=== PATIENT | female | born 1945 | race Caucasian/White ===

== ENCOUNTER 2020-02-07 14:12 | Emergency (ER) | payer MEDICARE, SELFPAY ==
--- NOTE | ~2020-02-07 | XR_ITS ---
EXAMINATION: XR chest 2V DATE: 02/07/2020 15:52 INDICATION: Mid chest pain TECHNIQUE: PA and lateral views of the chest are obtained. COMPARISON: 08/16/2011 FINDINGS: The lungs are hyperinflated but free of acute opacities. There is no pleural effusion or pn eumothorax. The cardiomediastinal silhouette is normal. There is mild thoracic spondylosis. IMPRESSION: 1. No acute cardiopulmonary abnormality. Reviewed, dictated and finalized at location A.
--- NOTE | ~2020-02-07 | CT_ITS ---
EXAMINATION: CT abdomen pelvis w con EXAM DATE: 02/07/2020 15:47 INDICATION: Nausea with reflux. Diarrhea. TECHNIQUE: Spiral CT of the abdomen and pelvis was performed following intravenous injection of 100 m L Omnipaque 350. Axial, coronal and sagittal images were reviewed. The dose-length product (DLP) fo r this examination was 335.76 mGy-cm. The exposure was tailored according to patient size (auto mA e xposure control), and iterative reconstruction (ASIR) was used as additional dose reduction technique . Comparison is made to prior examination from 10/14/2016. FINDINGS: There is suspicion of pyloric wall edema, could be peptic ulcer disease. No evidence of per foration. There are 2 small duodenal diverticula. Small gastroesophageal hiatal hernia. There is a hypodensity in the right liver dome measuring 2.7 cm consistent with a cyst. The spleen, pancreas, and adrenal glands are unremarkable. Gallbladder not identified, patient likely has had ch olecystectomy. Portal and splenic veins are patent. Kidneys enhance symmetrically. There is no hyd ronephrosis. The uterus is not identified and has likely been surgically resected. The bladder is unremarkable. There is no retroperitoneal or pelvic lymphadenopathy. There is mild scattered arter iosclerotic disease. The appendix is normal. There is mild scattered colonic diverticulosis. There is no adjacent infla mmatory change to suggest diverticulitis. There is expected amount of colonic stool. No free intrap eritoneal gas. The heart is normal in size. There are no pericardial or pleural effusions. The nurys ng bases are unremarkable. There are no osteoblastic or osteolytic lesions identified. IMPRESSION: 1. Findings suspicious for pyloric peptic ulcer disease. 2. Small duodenal diverticulum. 3. Small hiatal hernia. 4. Mild colonic diverticulosis. Reviewed, dictated and finalized at location B.
[2020-02-07 14:15] VITALS: BP 127/65; PULSE 97; RESP 16; TEMP 36.7; O2SAT 99
[2020-02-07 14:48] LABS: Basophils Absolute Auto 0.1 K/mm3 (0.0-0.1); Basophils Percent Auto 0.7 % (0.2-1.2); Eosinophils Absolute Auto 0.1 K/mm3 (0-0.3); Eosinophils Percent Auto 1.3 % (0-4.4); Hematocrit 43.9 % (37.0-47.0); Hemoglobin 14.5 g/dL (12.0-15.0); Immature Granulocyte Absolute 0.03 K/mm3 (0.00-0.031); Immature Granulocyte Percent A 0.4 % (0-0.5); Lymphocytes Absolute Auto 1.45 K/mm3 (0.9-3.2); Lymphocytes Percent Auto 19.1 % (18.3-44.2); Mean Corpuscular Hemoglobin 30.3 pg (26-34); Mean Corpuscular Volume 91.6 fl (80-100); Monocytes Absolute Auto 0.9 K/mm3 (0.1-0.6); Monocytes Percent Auto 11.8 % (2.6-8.5); Neutrophils Absolute Auto 5.1 K/mm3 (1.3-6.7); Neutrophils Percent Auto 66.7 % (45.5-73.1); Platelet Count Result 367 k/mm3 (150-375); Red Blood Count 4.79 M/mm3 (4.2-5.4); Red Cell Distribution Width 12.3 % (11.5-14.5); White Blood Count 7.6 K/mm3 (4.5-10.0)
[2020-02-07 14:55] LABS: Add Urine Microscopic? YES; Appearance Urine Cloudy (Clear); Bacteria Urine 4+ /hpf; Bilirubin Urine Negative (Negative); Blood Urine 1+ (Negative); Color Urine Yellow (Yellow); Glucose Urine UA Negative (Negative); Ketones Urine Negative (Negative); Leukocyte Esterase Ur 3+ LEU/UL (Negative); Mucus Urine Heavy /lpf; Nitrate Urine Positive (Negative); Protein Urine Negative (Negative); Specific Grav Ur 1.016 (1.001-1.035); Squamous Epithelial Cell Urine Occasional /hpf (Few); Urobilinogen Urine Negative mg/dL (<2.0); WBC Urine >75 /hpf
[2020-02-07 15:01] LABS: Alanine Aminotransferase 48 U/L (4-35); Albumin Level 4.4 g/dL (3.5-5.1); Alkaline Phosphatase 83 U/L (38-126); Aspartate Amino Transferase 64 U/L (14-36); Bilirubin,Total 0.4 mg/dL (0.2-1.3); Blood Urea Nitrogen 8 mg/dL (7-17); Carbon Dioxide 26 mmol/L (22-30); Chloride 104 mmol/L (98-107); Estimated CRCL calculation 42 ml/min; Estimated Glomerular Filt Rate > 60; Glucose 115 mg/dL (65-105); Lipase 132 U/L (23-300); Potassium 3.8 mmol/L (3.4-5.0); Sodium 139 mmol/L (137-145)
--- NOTE | 2020-02-07 15:02 | ED.GENADULT ---
HPI - General Adult General Chief complaint: Nausea/Vomiting/Diarrhea Stated complaint: STOMACH VIRUS X10 DAYS Time Seen by Provider: 02/07/20 15:21 History of Present Illness HPI narrative: 74-year-old female patient presents to the [facility] with complaints of nausea, vomiting, diarrhea and abdominal pain and epigastric pain for the past 10 days. Patient states it started with some acid reflux symptoms, diarrhea and fever. Patient states her fever got as high as 101 and lasted for about 3 days and then has went away since then. Patient states that she was tested for COVID-19 on day 4 and was tested negative. Patient states that she continues to have watery diarrhea, lower abdominal pain, epigastric pain. Denies any shortness of breath. Denies any fevers or chills. Patient states she tried calling her primary doctor today for an appointment and they recommended that she come here for further evaluation. Related Data Allergies Allergy/AdvReac Type Severity Reaction Status Date / Time No Known Allergies Allergy Verified 02/07/20 14:43 Review of Systems Review of Systems: Narrative: CONSTITUTIONAL: Positive fever that has since resolved, chills, or sweats. EYES: Denies visual changes, redness, or discharge. ENT: Denies rhinorrhea, congestion, sore throat, or otalgia. CARDIOVASCULAR: Positive chest pain, denies palpitations, or edema. RESPIRATORY: Denies cough or dyspnea. GASTROINTESTINAL: Positive abdominal pain, nausea, denies vomiting, positive diarrhea. GENITOURINARY: Denies dysuria or hematuria. SKIN: Denies rash or itching. MUSCULOSKELETAL: Denies back pain, joint pain, or myalgia. NEUROLOGIC: Denies headache, numbness, or weakness. PSYCHIATRIC: Denies anxiety or depression. [facility] Past Medical History Medical History (Updated 02/07/20 @ 17:27 by KIMBERLI Nunez) Endometriosis GERD (gastroesophageal reflux disease) Hypertension IBS (irritable bowel syndrome) Mitral valve prolapse Tubal ligation evaluation Exam Narrative: Exam Narrative: GENERAL: ill-appearing, well-nourished, and in no acute distress. HEAD: Normocephalic, atraumatic. EYES: PERRLA and EOMI. ENT: Nares clear, no rhinorrhea or epistaxis. Mucous membranes moist. NECK: Supple. No lymphadenopathy CHEST: Clear to auscultation. No respiratory distress. Patient will talk in clear complete sentences. HEART: Regular rate and rhythm. No murmur heard. Normal peripheral pulses. ABDOMEN: Soft, flat, nondistended. guarding, no rebound tenderness, or rigid. No pulsatilla masses. Hyperactive bowel sounds present in all four quadrants. No organomegaly. Patient has tenderness on palpation to the left lower quadrant and right lower quadrant. Negative Gonzales?s sign. No periumbicial tenderness. No Supra public tenderness or distension. Good femoral pulses bilaterally. No hernia noted. No scars or surface trauma. EXTREMITIES: Normal range of motion. No edema. SKIN: Warm, dry, no rash. NEURO: No focal deficits. Alert and oriented x3. Course Reevaluation(s) Reevaluation #1: Reevaluated patient. Patient states that she is feeling much better after receiving her medications. Patient states that the epigastric pain is much better but states she feels like it is slowly starting to come back. Discussed with her that her CT shows possibly some pyloric peptic ulcer disease in which most likely we will discharge her home with some omeprazole and have her follow-up with her primary doctor for further evaluation and treatment of possible H. pylori infection. Discussed with her that there is some small diverticulum as well as a small hiatal hernia and some diverticulosis but nothing that appears to be concerning for obstruction, bleeding or infection. Discussed with her that she does have a urinary tract infection noted on her urine. Patient states that she does have chronic UTIs and typically takes an antibiotic Friday and Friday. Discussed with patient that we nallely
--- NOTE | 2020-02-07 15:29 | ECG_ITS ---
Measurements Intervals [place] Rate: 79 P: 60 NC: 191 QRS: 48 QRSD: 87 T: 64 QT: 361 QTc: 414 Interpretive Statements SINUS RHYTHM ATRIAL PREMATURE COMPLEX LOW QRS VOLTAGE IN PRECORDIAL LEADS BASELINE ARTIFACT- I, III, AVL, V6 BORDERLINE ECG Electronically Signed On 02-07-2020 16:12:06 CDT by Jaxson Bill D.O.
[2020-02-07 15:53] LABS: Alanine Aminotransferase 48 U/L (4-35); Albumin Level 4.3 g/dL (3.5-5.1); Alkaline Phosphatase 84 U/L (38-126); Aspartate Amino Transferase 67 U/L (14-36); Bilirubin,Total 0.4 mg/dL (0.2-1.3); Lipase 133 U/L (23-300)
[2020-02-07] MEDS: SODIUM CHLORIDE 0.9% IV 1,000 ML 999 ML IV CONT (15:54)
[2020-02-07] MEDS: FAMOTIDINE 20 MG/2 ML VIAL IV PUSH (15:54)
[2020-02-07] MEDS: ONDANSETRON INJ 4 MG/2 ML VIAL IV PUSH (15:54)
[2020-02-07 16:04] LABS: Troponin I < 0.012 ng/mL (0.000-0.034)
[2020-02-07] MEDS: BELLADONNA ALK/PHENOB ELIX 10 ML, MAG HYDROX/ALUMINUM HYD/SIMETH 30 ML, LIDOCAINE HCL 2... PO (17:24)
[2020-02-07 17:53] VITALS: BP 135/61; PULSE 71; RESP 16; O2SAT 96
== END 2020-02-07 18:15 | disposition home or self-care (01) ==
PROVIDERS: Emergency Medicine; Emergency Provider Nurse Practitioner Family; PCP Family Medicine
DX: K27.9 Peptic ulcer, site unspecified, unspecified as acute or chronic, without hemorrhage or perforation (principal); N30.01 Acute cystitis with hematuria; I10 Essential (primary) hypertension; K21.9 Gastro-esophageal reflux disease without esophagitis; K58.9 Irritable bowel syndrome, unspecified; I34.1 Nonrheumatic mitral (valve) prolapse; I49.1 Atrial premature depolarization
CPT/HCPCS: 36415; 71046; 74177; 80053; 80076; 81001; 83690; 84100; 84484; 85025; 87077; 87086; 87088; 93005; 96361; 96374; 96375; 99284; A9270; J2405; J7030; Q9967

== ENCOUNTER 2020-03-24 02:47 | Outpatient (CLI) | payer MEDICARE, SELFPAY ==
[2020-03-25 13:48] LABS: SARS-CoV-2 RNA PCR Negative
== END 2020-03-24 02:48 | disposition home or self-care (01) ==
LOC: ANHCOVIDDT 02:47
PROVIDERS: PCP Family Medicine; Visit Provider Internal Medicine Gastroenterology
DX: Z01.812 Encounter for preprocedural laboratory examination (principal); Z11.59 Encounter for screening for other viral diseases
CPT/HCPCS: 87635; C9803; U0003

== ENCOUNTER 2020-03-27 01:09 | Day surgery (SDC) | payer MEDICARE, SELFPAY ==
[2020-03-17 15:15] VITALS: BMI 24.5
--- NOTE | 2020-03-27 13:21 | WPDANESEPPF ---
Anes - Initial Pre Proc Eval Procedure: Operation Date: 03/27/20 13:00 Proposed Procedures p Esophagogastroduodenoscopy - Ranulfo Perez DO Date/Time: 03/27/20 13:21 Surgeon: Ranulfo Perez DO Pre Op Diagnosis: peptic ulcer Patient Data Age: 74 Gender: F Height: 5 ft 2 in Weight: 61 kg Allergies Allergy/AdvReac Type Severity Reaction Status Date / Time No Known Allergies Allergy Verified 03/24/20 12:30 Home Medications Medication Instructions Recorded Confirmed Type omeprazole 40 mg PO DAILY #30 cap 02/07/20 03/24/20 Rx atorvastatin 20 mg PO DAILY 03/17/20 03/24/20 History biotin 5,000 mcg SUBLINGUAL DAILY 03/17/20 03/24/20 History cholecalciferol (vitamin D3) 75 mcg PO DAILY 03/17/20 03/24/20 History cinnamon bark [Cinnamon] 1,000 mg PO DAILY 03/17/20 03/24/20 History coenzyme Q10 [Co Q-10] 200 mg PO DAILY 03/17/20 03/24/20 History flaxseed oil 1,000 mg PO DAILY 03/17/20 03/24/20 History lactobacillus combination no.8 3,000 mmu cells PO DAILY 03/17/20 03/24/20 History [Adult Probiotic] metoprolol succinate 25 mg PO DAILY 03/17/20 03/24/20 History anuygumi-ito-fmuu-FA-lutein 1 tablet PO DAILY 03/17/20 03/24/20 History [Multivitamin Women 50 Plus] potassium citrate 5 meq PO DAILY 03/17/20 03/24/20 History trimethoprim 100 mg PO QMWF 03/17/20 03/24/20 History turmeric 500 mg PO DAILY 03/17/20 03/24/20 History Patient hx anesthesia problems: none Family hx anesthesia problems: none PMFSH Past Medical History Medical History (Updated 03/27/20 @ 12:50 by Ranulfo Perez DO) Adenomatous colon polyp Endometriosis GERD (gastroesophageal reflux disease) HTN (hypertension) IBS (irritable bowel syndrome) Mitral valve prolapse Surgical History Surgical History (Updated 03/27/20 @ 12:50 by Ranulfo Perez DO) Hx of colonoscopy Social History Social History : Female Anes - Eval Final PreProcedure Day of Procedure 03/27/20 13:21 Patient weight: normal Heart: regular rate and rhythm Lungs: clear to auscultation Airway: Mallampati scale class II Neurological: alert and oriented Last oral intake: >/= 8 hours ASA classification: III Emergent: no Anesthetic plan: proceed Anesthesia type and monitoring: general GIVS and standard monitoring Informed Consent: The patient's anesthetic plan and its attendant risks and benefits were discussed with the patient/family/POA. Questions were solicited and answers provided to the satisfaction of the patient/family/POA.
[2020-03-27 13:22] VITALS: BP 129/63; PULSE 70; RESP 16; TEMP 36.6; O2SAT 97; BMI 24.7
--- NOTE | 2020-03-27 13:32 | PM.IMHP ---
H&P: HPI History of Present Illness Date/Time: 03/27/20 13:32 Chief complaint: peptic ulcer Narrative: Reason for visit EGD. This very pleasant lady seen in consultation at the request of the primary physician. Impression: Here very pleasant lady with abdominal pain and diarrhea. CT imaging is abnormal revealing possible peptic ulcer disease. Acute diarrhea sound infectious in etiology. A history of recurring urinary tract infections. IBS. History of adenomatous colon polyps. HTN. HLD. Recommendation: EGD. Colonoscopy. History: This very pleasant lady's being evaluated for acute episode of severe explosive diarrhea. The diarrhea is soft with [place] abdominal cramping. She denied any nausea, vomiting or hematemesis. She denied any dysphagia , odynophagia, indigestion. She did report heartburn and a constant basis. She had fevers up to almost 102?. Hematochezia, melena acholic stools overnight. The patient tends to have loose stools. She has a sense of incomplete evacuation normally. The diarrhea has since ceased. CT imaging was obtained revealing evidence of a thickened pylorus. Peptic ulcer disease cannot be ruled out. Patient is here for EGD. Physical examination: General: very pleasant patient in no acute distress. HEENT: Head was normocephalic sclerae is clear mouth without masses neck was supple. Heart: Rate rhythm regular without S3 or S4. Lungs: CTA. Abdomen: Soft with no guarding or rigidity. Bowel sounds were active. Neurologic: Cranial nerves 2 through 12 intact. No focal defects. No clonus. Musculoskeletal system: Revealed no joint tenderness or swelling no muscle atrophy. Extremities: Reveal no significant edema. Skin: Warm and dry with normal turgor. Mental status: intact. Patient is alert and oriented. Review of Systems Review of Systems: All systems reviewed & are unremarkable except as noted in HPI and below PMFSH Past Medical History Medical History (Updated 03/27/20 @ 12:50 by Ranulfo Perez DO) Adenomatous colon polyp Endometriosis GERD (gastroesophageal reflux disease) HTN (hypertension) IBS (irritable bowel syndrome) Mitral valve prolapse Surgical History Surgical History (Updated 03/27/20 @ 12:50 by Ranulfo Perez DO) Hx of colonoscopy Social History Social History Gender identity (if verbalized by the patient): Female Meds Home Medications and Allergies Home Medications Medication Instructions Recorded Confirmed Type omeprazole 40 mg PO DAILY #30 cap 02/07/20 03/24/20 Rx atorvastatin 20 mg PO DAILY 03/17/20 03/24/20 History biotin 5,000 mcg SUBLINGUAL DAILY 03/17/20 03/24/20 History cholecalciferol (vitamin D3) 75 mcg PO DAILY 03/17/20 03/24/20 History cinnamon bark [Cinnamon] 1,000 mg PO DAILY 03/17/20 03/24/20 History coenzyme Q10 [Co Q-10] 200 mg PO DAILY 03/17/20 03/24/20 History flaxseed oil 1,000 mg PO DAILY 03/17/20 03/24/20 History lactobacillus combination no.8 3,000 mmu cells PO DAILY 03/17/20 03/24/20 History [Adult Probiotic] metoprolol succinate 25 mg PO DAILY 03/17/20 03/24/20 History hdfrfdem-elg-txrl-FA-lutein 1 tablet PO DAILY 03/17/20 03/24/20 History [Multivitamin Women 50 Plus] potassium citrate 5 meq PO DAILY 03/17/20 03/24/20 History trimethoprim 100 mg PO QMWF 03/17/20 03/24/20 History turmeric 500 mg PO DAILY 03/17/20 03/24/20 History Allergies Allergy/AdvReac Type Severity Reaction Status Date / Time No Known Allergies Allergy Verified 03/27/20 13:30 Vital Signs Vital Signs - 24 hr 03/27/20 13:22 Temperature 36.6 C Pulse Rate 70 Respiratory Rate 16 Blood Pressure 129/63 Pulse Oximetry 97
[2020-03-27] MEDS: LACTATED RINGERS 1,000 ML 150 ML IV CONT (13:45)
[2020-03-27 14:55] VITALS: BP 109/56; PULSE 70; RESP 16; O2SAT 99
[2020-03-27 15:05] VITALS: BP 120/60; PULSE 66; RESP 16; O2SAT 99
[2020-03-27 15:15] VITALS: BP 120/60; PULSE 61; RESP 17; O2SAT 98
== END 2020-03-27 15:38 | disposition home or self-care (01) ==
PROVIDERS: PCP Family Medicine; Visit Provider Internal Medicine Gastroenterology
PROC: 0DJ08ZZ Inspection of Upper Intestinal Tract, Via Natural or Artificial Opening Endoscopic (ICD-10-PCS; CPT 43235; principal; 2020-03-27 13:00)
DX: K44.9 Diaphragmatic hernia without obstruction or gangrene (principal); K21.9 Gastro-esophageal reflux disease without esophagitis; K58.0 Irritable bowel syndrome with diarrhea; I34.1 Nonrheumatic mitral (valve) prolapse; I10 Essential (primary) hypertension; E78.5 Hyperlipidemia, unspecified
CPT/HCPCS: 43239; 87081; 87635; C9803; J2704; J7120; U0003

== ENCOUNTER 2020-04-04 01:47 | Outpatient (CLI) | payer MEDICARE, SELFPAY ==
[2020-04-04 18:54] LABS: SARS-CoV-2 RNA PCR Negative
== END 2020-04-04 01:48 | disposition home or self-care (01) ==
LOC: ANHCOVIDDT 01:48
PROVIDERS: PCP Family Medicine; Visit Provider Internal Medicine Gastroenterology
DX: Z01.812 Encounter for preprocedural laboratory examination (principal); Z20.828 Contact with and (suspected) exposure to other viral communicable diseases
CPT/HCPCS: 87635; C9803; U0003

== ENCOUNTER 2020-04-06 01:04 | Day surgery (SDC) | payer MEDICARE, SELFPAY ==
[2020-03-24 12:32] VITALS: BMI 24.3
[2020-04-06 06:34] VITALS: BP 118/53; PULSE 77; RESP 16; TEMP 36.9; O2SAT 99; BMI 25.0
[2020-04-06] MEDS: LACTATED RINGERS 1,000 ML 150 ML IV CONT (06:42)
--- NOTE | 2020-04-06 07:09 | WPDANESEPPF ---
Anes - Initial Pre Proc Eval Procedure: Operation Date: 04/06/20 07:30 Proposed Procedures p Colonoscopy - Ranulfo Perez DO Date/Time: 04/06/20 07:09 Surgeon: Ranulfo ePrez DO Pre Op Diagnosis: colon polyp Patient Data Age: 75 Gender: F Height: 5 ft 2 in Weight: 62 kg Last Vital Signs Temp 98.4 F 04/06/20 06:34 Pulse 77 04/06/20 06:34 Resp 16 04/06/20 06:34 BP 118/53 L 04/06/20 06:34 Pulse Ox 99 04/06/20 06:34 Allergies Allergy/AdvReac Type Severity Reaction Status Date / Time No Known Allergies Allergy Verified 04/06/20 06:32 Home Medications Medication Instructions Recorded Confirmed Type omeprazole 40 mg PO DAILY #30 cap 02/07/20 03/24/20 Rx atorvastatin 20 mg PO DAILY 03/17/20 03/24/20 History biotin 5,000 mcg SUBLINGUAL DAILY 03/17/20 03/24/20 History cholecalciferol (vitamin D3) 75 mcg PO DAILY 03/17/20 03/24/20 History cinnamon bark [Cinnamon] 1,000 mg PO DAILY 03/17/20 03/24/20 History coenzyme Q10 [Co Q-10] 200 mg PO DAILY 03/17/20 03/24/20 History flaxseed oil 1,000 mg PO DAILY 03/17/20 03/24/20 History lactobacillus combination no.8 3,000 mmu cells PO DAILY 03/17/20 03/24/20 History [Adult Probiotic] metoprolol succinate 25 mg PO DAILY 03/17/20 03/24/20 History aemenwoi-mbg-ysef-FA-lutein 1 tablet PO DAILY 03/17/20 03/24/20 History [Multivitamin Women 50 Plus] potassium citrate 5 meq PO DAILY 03/17/20 03/24/20 History trimethoprim 100 mg PO QMWF 03/17/20 03/24/20 History turmeric 500 mg PO DAILY 03/17/20 03/24/20 History Patient hx anesthesia problems: none Family hx anesthesia problems: none PMFSH Past Medical History Medical History (Updated 03/27/20 @ 12:50 by Ranulfo Perez DO) Adenomatous colon polyp Endometriosis GERD (gastroesophageal reflux disease) HTN (hypertension) IBS (irritable bowel syndrome) Mitral valve prolapse Surgical History Surgical History (Updated 03/27/20 @ 12:50 by Ranulfo Perez DO) Hx of colonoscopy Social History Social History Gender identity (if verbalized by the patient): Female Anes - Eval Final PreProcedure Day of Procedure 04/06/20 07:09 Patient weight: normal Heart: regular rate and rhythm Lungs: clear to auscultation Airway: Mallampati scale class II Neurological: alert and oriented Last oral intake: >/= 8 hours ASA classification: II Emergent: no Anesthetic plan: proceed Anesthesia type and monitoring: general GIVS and standard monitoring Informed Consent: The patient's anesthetic plan and its attendant risks and benefits were discussed with the patient/family/POA. Questions were solicited and answers provided to the satisfaction of the patient/family/POA.
--- NOTE | 2020-04-06 07:14 | PM.IMHP ---
H&P: [facility] History of Present Illness Date/Time: 04/06/20 07:14 Chief complaint: colon polyp Narrative: Reason for visit is colonoscopy. This very pleasant lady sitting consultation request the primary physician. Impression: Screening and surveillance colonoscopy. The patient's history adenomatous colon polyps. GERD well controlled on medication. HTN. HLD. Recommendation: Colonoscopy. History: Very pleasant lady's here for screening and surveillance colonoscopy. She has a history of adenomatous colon polyps. She does notice occasional blood on the tissue people wiping. She has a history of reflux disease well controlled on medications. Physical examination: General: very pleasant patient in no acute distress. HEENT: Head was normocephalic sclerae is clear mouth without masses neck was supple. Heart: Rate rhythm regular without S3 or S4. Lungs: CTA. Abdomen: Soft with no guarding or rigidity. Bowel sounds were active. Neurologic: Cranial nerves 2 through 12 intact. No focal defects. No clonus. Musculoskeletal system: Revealed no joint tenderness or swelling no muscle atrophy. Extremities: Reveal no significant edema. Skin: Warm and dry with normal turgor. Mental status: intact. Patient is alert and oriented. Review of Systems Review of Systems: All systems reviewed & are unremarkable except as noted in HPI and below PMFSH Past Medical History Medical History (Updated 04/06/20 @ 07:13 by Ranulfo Perez DO) Adenomatous colon polyp Endometriosis GERD (gastroesophageal reflux disease) HLD (hyperlipidemia) HTN (hypertension) IBS (irritable bowel syndrome) Mitral valve prolapse Surgical History Surgical History (Updated 03/27/20 @ 12:50 by Ranulfo Perez DO) Hx of colonoscopy Social History Social History Gender identity (if verbalized by the patient): Female Meds Home Medications and Allergies Home Medications Medication Instructions Recorded Confirmed Type omeprazole 40 mg PO DAILY #30 cap 02/07/20 03/24/20 Rx atorvastatin 20 mg PO DAILY 03/17/20 03/24/20 History biotin 5,000 mcg SUBLINGUAL DAILY 03/17/20 03/24/20 History cholecalciferol (vitamin D3) 75 mcg PO DAILY 03/17/20 03/24/20 History cinnamon bark [Cinnamon] 1,000 mg PO DAILY 03/17/20 03/24/20 History coenzyme Q10 [Co Q-10] 200 mg PO DAILY 03/17/20 03/24/20 History flaxseed oil 1,000 mg PO DAILY 03/17/20 03/24/20 History lactobacillus combination no.8 3,000 mmu cells PO DAILY 03/17/20 03/24/20 History [Adult Probiotic] metoprolol succinate 25 mg PO DAILY 03/17/20 03/24/20 History menljxhh-bfb-cwth-FA-lutein 1 tablet PO DAILY 03/17/20 03/24/20 History [Multivitamin Women 50 Plus] potassium citrate 5 meq PO DAILY 03/17/20 03/24/20 History trimethoprim 100 mg PO QMWF 03/17/20 03/24/20 History turmeric 500 mg PO DAILY 03/17/20 03/24/20 History Allergies Allergy/AdvReac Type Severity Reaction Status Date / Time No Known Allergies Allergy Verified 04/06/20 06:32 Vital Signs Vital Signs - 24 hr 04/06/20 06:34 Temperature 36.9 C Pulse Rate 77 Respiratory Rate 16 Blood Pressure 118/53 L Pulse Oximetry 99
[2020-04-06 08:05] VITALS: BP 109/49; PULSE 68; RESP 16; O2SAT 99
[2020-04-06 08:15] VITALS: BP 119/62; PULSE 68; RESP 16; O2SAT 99
[2020-04-06 08:23] VITALS: BP 137/67; PULSE 67; RESP 16; O2SAT 99
== END 2020-04-06 08:39 | disposition home or self-care (01) ==
PROVIDERS: PCP Family Medicine; Visit Provider Internal Medicine Gastroenterology
PROC: 0DJD8ZZ Inspection of Lower Intestinal Tract, Via Natural or Artificial Opening Endoscopic (ICD-10-PCS; CPT 45378; principal; 2020-04-06 07:30)
DX: Z12.11 Encounter for screening for malignant neoplasm of colon (principal); D12.4 Benign neoplasm of descending colon; K57.30 Diverticulosis of large intestine without perforation or abscess without bleeding; K21.9 Gastro-esophageal reflux disease without esophagitis; E78.5 Hyperlipidemia, unspecified; I10 Essential (primary) hypertension; K58.9 Irritable bowel syndrome, unspecified; K64.8 Other hemorrhoids
CPT/HCPCS: 45380; 87635; 88305; C9803; J2704; J7120; U0003

== ENCOUNTER 2021-02-14 09:30 | Outpatient (CLI) | payer MEDICARE, SELFPAY ==
--- NOTE | ~2021-02-14 | CT_ITS ---
EXAMINATION: CT sinus wo con DATE: 02/14/2021 09:56 INDICATION: Headache. Sinus congestion. TECHNIQUE: Computed tomography (CT) of the paranasal sinuses was performed without intravenous contra st. Iterative reconstruction technique was employed. The dose-length product was 273.54 mGy-cm. COMPARISON: Head CT 08/16/2011 FINDINGS: There is mild mucosal thickening in the bilateral ethmoid sinuses and right frontal recess. The sphenoid sinuses are clear. There is mild mucosal thickening in the maxillary sinuses. There is a Zahira cell on the left. The middle turbinates are paradoxical. The nasal septum is at midline. The ostiomeatal units are patent. IMPRESSION: 1. Mild mucosal thickening in the paranasal sinuses. Reviewed, dictated and finalized at location A.
== END 2021-02-14 09:31 | disposition home or self-care (01) ==
PROVIDERS: PCP Family Medicine; Visit Provider Family Medicine
DX: R51.9 Headache, unspecified (principal); J34.89 Other specified disorders of nose and nasal sinuses
CPT/HCPCS: 70486

== ENCOUNTER 2021-02-22 19:17 | Inpatient (IN) | payer MEDICARE, SELFPAY ==
[2021-02-22] VITALS (14 sets, daily range): BP systolic 108–142; BP diastolic 47–58; PULSE 90–116; RESP 10–22; TEMP 37.3–37.5; O2SAT 93–100; BMI 24.9
--- NOTE | ~2021-02-22 | XR_ITS ---
EXAMINATION: XR abdomen/kub 1V DATE: 03/03/2021 08:12 INDICATION: Ileus TECHNIQUE: A supine view of the abdomen on 2 radiographs was obtained. COMPARISON: KUB dated 03/02/[address] dated 02/22/2021 FINDINGS: Nasogastric tube tip in proximal side port in the body of the stomach. Relative paucity of bowel gas with no dilated gas-filled loops of bowel to suggest obstruction. There are couple small paraspinal p hleboliths which on prior CT can be seen in the right gonadal vein. Minimal left basilar atelectasis. IMPRESSION: 1. Nonspecific nonobstructive bowel gas pattern with relative paucity of bowel gas in the abdomen and pelvis. Reviewed, dictated and finalized at location A.
--- NOTE | ~2021-02-22 | CT_ITS ---
EXAMINATION: CT abdomen pelvis w con DATE: 02/22/2021 21:08 INDICATION: Lower abdominal pain, fever and diarrhea TECHNIQUE: Computed tomography (CT) of the abdomen and pelvis was performed with 100 cc Omnipaque 350 intravenous contrast. The dose-length product was 542.10 mGy-cm. Automated exposure control and iter ative reconstruction technique were employed. COMPARISON: CT dated 02/07/2020. FINDINGS: Lung bases are unremarkable. Heart size normal. No significant vascular abnormality. Small hiatal hernia. No lymphadenopathy. Gallbladder not identified, likely surgically absent. There is mild biliary dilatation. There is a 2. 8 cm liver cyst. The spleen, pancreas, adrenal glands and kidneys are unremarkable. There is a duoden al diverticulum. There is diffuse abnormal wall thickening of the colon and rectum, consistent with c olitis. There is mild thickening of the gastric and proximal duodenal wall. Mild thickening of the di stal esophagus. No evidence for bowel perforation. No free air or free fluid. IMPRESSION: 1. Diffuse abnormal wall thickening of the colon, consistent with colitis, most likely infectious or inflammatory. 2: Mild thickening of the distal esophagus, stomach and proximal duodenum, also infectious versus in flammatory. Reviewed, dictated and finalized at location A. IMPRESSION: 1. Diffuse abnormal wall thickening of the colon, consistent with colitis, most likely infectious or inflammatory. 2: Mild thickening of the distal esophagus, stomach and proximal duodenum, als o infectious versus inflammatory.
--- NOTE | ~2021-02-22 | XR_ITS ---
EXAMINATION: XR chest 1V 02/22/2021 21:14 INDICATION: Chest pain after recent fall PROCEDURE: AP view of the chest COMPARISON: 02/07/2020 FINDINGS: The lungs are clear. The cardiomediastinal silhouette is upper normal limits. There are n o pleural effusions. There is no pneumothorax suspected. IMPRESSION: 1: NO ACUTE CARDIOPULMONARY DISEASE. Reviewed, dictated and finalized at location A.
--- NOTE | ~2021-02-22 | US_ITS ---
EXAMINATION: US venous doppler E DATE: 02/25/2021 12:26 INDICATION: Left upper limb edema. TECHNIQUE: Grayscale ultrasound images without and with compression and Doppler ultrasound images of the left upper extremity veins were obtained. COMPARISON: None. FINDINGS: The visualized portions of the left internal jugular vein, subclavian vein, axillary vein, brachial v eins, basilic vein, radial vein, and ulnar vein are patent. There is thrombus in left cephalic vein. IMPRESSION: 1. No deep venous thrombosis. 2. Thrombus in left cephalic vein, which is a superficial vein. Reviewed, dictated and finalized at location A.
--- NOTE | ~2021-02-22 | CT_ITS ---
EXAMINATION: CT BRAIN W/O DATE: 02/22/2021 21:08 INDICATION: Syncope TECHNIQUE: Computed tomography (CT) of the head was performed without intravenous contrast. The dose- length product was 542.10 mGy-cm. Automated exposure control and iterative reconstruction technique w ere employed. COMPARISON: No prior studies for comparison. FINDINGS: Normal brain parenchymal volume for age. Normal d[place]-white differentiation. No acute intrac ranial hemorrhage, infarction, mass or mass effect. No ventriculomegaly or midline shift. Midline sagittal images demonstrate a normal corpus callosum, c raniovertebral junction and sella turcica. Basilar cisterns are patent. Paranasal sinuses and mastoids are pneumatized. No depressed skull fractures. IMPRESSION: 1. No acute intracranial abnormality. Reviewed, dictated and finalized at location A.
--- NOTE | ~2021-02-22 | XR_ITS ---
EXAMINATION: XR abdomen obstructive series DATE: 02/28/2021 17:29 INDICATION: Ileus TECHNIQUE: Frontal supine and upright views of the abdomen were obtained. COMPARISON: None. FINDINGS: Is a gastric tube tip in proximal side port in the body of the stomach. Gas and small amount of stool scattered throughout the colon. There is gas scattered throughout multiple nondilated loops of small bowel consistent with provided history of ileus. No free intraperitoneal gas. Mild elevation of the right hemidiaphragm. Airspace opacity in the right midlung zone which could represent atelectasis and /or pneumonia. Heart size is normal. Subcutaneous edema is seen at the lateral left upper quadrant an d lateral right lower quadrant. IMPRESSION: 1. Nasogastric tube in the stomach. 2. Nonspecific nonobstructive bowel gas pattern consistent with provided history of ileus. 2. Airspace opacity in the right midlung zone which could represent atelectasis and/or pneumonia. Reviewed, dictated and finalized at location A. IMPRESSION: 1. Nasogastric tube in the stomach. 2. Nonspecific nonobstructive bowel gas pattern consistent with provided histor y of ileus. 2. Airspace opacity in the right midlung zone which could represent atelectasis and/or pneumonia.
--- NOTE | ~2021-02-22 | US_ITS ---
EXAMINATION: US right upper quadrant EXAM DATE: 02/23/2021 14:23 INDICATION: Elevated liver enzymes. TECHNIQUE: Multiple grayscale and Doppler images of the abdomen right upper quadrant were obtained (chinmay y a technologist who performed the scan) and subsequently reviewed. Comparison is made to prior exami nation from 06/16/2012. FINDINGS: The pancreatic head and body are normal in appearance. The pancreatic tail is not visualized. The l iver has normal echogenicity and contour. There is right liver lesion posteriorly measuring 2 cm, ap pears most likely to be a cyst, mild increased through transmission is demonstrated. This was present in 2011, was larger at 2.7 cm. There is no evidence of intrahepatic biliary duct dilation. Portal venous flow was seen in the hepatopedal, normal direction and has normal Doppler waveform. No right- sided hydronephrosis. Common bile duct measures 3 mm, which is normal. The gallbladder fossa is unremarkable. IMPRESSION: 1. The liver lesion likely cyst. 2. Unremarkable gallbladder fossa. Reviewed, dictated and finalized at location B.
--- NOTE | ~2021-02-22 | XR_ITS ---
EXAMINATION: XR abdomen obstructive series DATE: 03/02/2021 08:43 INDICATION: Adynamic ileus. Abdominal pain. TECHNIQUE: Upright and supine views of the abdomen were obtained. COMPARISON: CT abdomen and pelvis 02/22/2021 FINDINGS: There are no dilated loops of bowel. There is a small volume of stool in the colon. There i s no free intraperitoneal gas. The nasogastric tube tip is in the stomach. There is mild atelectasis in the lungs bilaterally. IMPRESSION: 1. Nonobstructive bowel gas pattern. Reviewed, dictated and finalized at location A.
--- NOTE | ~2021-02-22 | XR_ITS ---
EXAMINATION: XR ribs LT 2V w CXR 2V EXAM DATE: 02/27/2021 14:53 INDICATION: Left anterior chest wall tenderness after fall. Initial encounter. TECHNIQUE: Frontal projection of the upper right ribs, frontal projection of the lower right ribs, ob lique projection of the right ribs, frontal and lateral chest x-ray(s) for interpretation. Comparison is made to prior examination from 02/07/2020, 02/22/2021. FINDINGS: There are no displaced acute right rib fractures identified. There is no soft tissue abno rmality seen. There are small bilateral pleural effusions. There is bibasilar linear airspace disease , appearance most consistent with subsegmental atelectasis. No pneumothorax. Cardiomediastinal silhou ette is normal. The vertebral bodies are aligned in the AP dimension. Compared to 02/22/2021, the effusions and atelectasis have developed. IMPRESSION: 1. No displaced right rib fractures. 2. Development of Small bilateral pleural effusions. 3. Development of Bibasilar linear atelectasis. Pneumonia not excludable. Reviewed, dictated and finalized at location A.
[2021-02-22 19:37] LABS: Hematocrit 43.5 % (37.0-47.0); Hemoglobin 14.5 g/dL (12.0-15.0); Mean Corpuscular HGB Conc 33.3 g/dl (32-36); Mean Corpuscular Hemoglobin 30.1 pg (26-34); Mean Corpuscular Volume 90.4 fl (80-100); Mean Platelet Volume 9.6 fl (7.4-10.4); Platelet Count Result 312 k/mm3 (150-375); Red Blood Count 4.81 M/mm3 (4.2-5.4); Red Cell Distribution Width 12.7 % (11.5-14.5); White Blood Count 27.8 K/mm3 (4.5-10.0)
[2021-02-22 19:46] LABS: Alanine Aminotransferase 670 U/L (4-35); Albumin Level 3.6 g/dL (3.5-5.1); Alkaline Phosphatase 194 U/L (38-126); Anion Gap 10 mmol/L (8-16); Aspartate Amino Transferase 566 U/L (14-36); Bilirubin,Total 1.5 mg/dL (0.2-1.3); Blood Urea Nitrogen 12 mg/dL (7-17); Carbon Dioxide 22 mmol/L (22-30); Chloride 94 mmol/L (98-107); Estimated Glomerular Filt Rate > 60; Glucose 311 mg/dL (65-105); Lipase 68 U/L (23-300); Potassium 3.9 mmol/L (3.4-5.0); Sodium 126 mmol/L (137-145)
[2021-02-22 19:50] LABS: Band Neutrophils Percent 11 % (0-6); Lymphocytes Absolute Manual 1.94 K/mm3 (1.1-4.5); Lymphocytes Percent Manual 7 % (18-44); Monocytes Absolute Manual 2.22 K/mm3 (0.1-0.90); Monocytes Percent Manual 8 % (3-9); Neutrophils Absolute Manual 23.63 K/mm3 (1.7-7.2); Neutrophils Percent Manual 74 % (46-73); Platelet Estimate Adequate (Adequate); Total Cells Counted 100
--- NOTE | 2021-02-22 20:03 | ECG_ITS ---
Measurements Intervals [place] Rate: 96 P: 23 OR: 155 QRS: 16 QRSD: 80 T: 20 QT: 315 QTc: 400 Interpretive Statements SINUS RHYTHM BASELINE ARTIFACT- I, II, III, AVR, AVL, AVF, V1 NORMAL ECG Electronically Signed On 02-23-2021 6:29:17 CDT by Jaxson Bill D.O.
--- NOTE | 2021-02-22 20:11 | ED.NAVMDI ---
HPI - Nausea/Vomiting/Diarrhea General Chief complaint: Nausea/Vomiting/Diarrhea Stated complaint: N/V/D, Fever Time Seen by Provider: 02/22/21 19:52 Source: patient and RN notes reviewed Mode of arrival: wheelchair Limitations: no limitations History of Present Illness HPI Narrative: This is a 75 year old female who presents for evaluation of nausea, diarrhea and abdominal pain. Patient developed nausea, vomiting and diarrhea on Friday. Her is at bedside giving history because patient is actively vomiting. He states he found patient on the bathroom floor Friday vomiting and having diarrhea. He states patient had passed out. She has been having left shoulder and left chest pain since this episode . She thinks she hit her chest after falling. She was initially feeling better but her diarrhea got worse today. She reports constant lower abdominal pain. She has also been running fever at home. Patient just completed her second course of antibiotics today for treatment of chronic sinusitis. Related Data Home Medications Medication Instructions Recorded Confirmed atorvastatin 20 mg PO DAILY 03/17/20 02/08/21 biotin 5,000 mcg SUBLINGUAL DAILY 03/17/20 02/08/21 cholecalciferol (vitamin D3) 75 mcg PO DAILY 03/17/20 02/08/21 cinnamon bark [Cinnamon] 1,000 mg PO DAILY 03/17/20 02/08/21 coenzyme Q10 [Co Q-10] 200 mg PO DAILY 03/17/20 02/08/21 flaxseed oil 1,000 mg PO DAILY 03/17/20 02/08/21 lactobacillus combination no.8 3,000 mmu cells PO DAILY 03/17/20 02/08/21 [Adult Probiotic] metoprolol succinate 25 mg PO DAILY 03/17/20 02/08/21 piomszat-hhe-sqjy-FA-lutein 1 tablet PO DAILY 03/17/20 02/08/21 [Multivitamin Women 50 Plus] potassium citrate 5 meq PO DAILY 03/17/20 02/08/21 trimethoprim 100 mg PO QMWF 03/17/20 02/08/21 turmeric 500 mg PO DAILY 03/17/20 02/08/21 vitamin K2 100 mcg capsule 100 mcg PO DAILY 09/28/20 02/08/21 zinc acetate 50 mg (zinc) capsule 50 mg PO DAILY 09/28/20 02/08/21 Allergies Allergy/AdvReac Type Severity Reaction Status Date / Time No Known Allergies Allergy Verified 02/22/21 19:27 Review of Systems Review of Systems: All systems reviewed & are unremarkable except as noted in HPI and below Constitutional: Constitutional: Reports chills, Reports fatigue and Reports fever(s) Cardiovascular: Cardiovascular: Denies radiating jaw, neck or arm pain Respiratory: Respiratory: Denies cough and Denies dyspnea Gastrointestinal: Gastrointestinal: Reports abdominal pain, Reports diarrhea, Reports nausea and Reports vomiting PMFSH Past Medical History Medical History Adenomatous colon polyp Endometriosis GERD (gastroesophageal reflux disease) HLD (hyperlipidemia) HTN (hypertension) Irritable bowel syndrome with diarrhea Leg cramps Mitral valve prolapse Overweight (BMI 25.0-29.9) Recurrent UTI Surgical History Surgical History H/O arthroscopy of left knee H/O: hysterectomy 1980 History of cholecystectomy 2012 History of radiofrequency ablation (RFA) procedure for cardiac arrhythmia 2014 Hx of colonoscopy Status post laser cataract surgery left eye 2018 right eye 2018 Family History Family History Father Heart disease Mother Heart disease Sibling , Sister Heart disease COPD (chronic obstructive pulmonary disease) Asthma Social History Social History Alcohol intake: never Substance use: never Gender identity (if verbalized by the patient): Female Exam Const: General: alert and ill appearing Orientation/consciousness: patient oriented x3 Eyes: EOM: EOMs intact bilaterally Chest: Chest palpation & inspection: tenderness Resp: Effort & Inspection: normal respiratory effort and no retractions Auscul
[2021-02-22] MEDS: ONDANSETRON INJ 4 MG/2 ML VIAL IV PUSH (20:39)
[2021-02-22] MEDS: LACTATED RINGERS 1,000 ML 999 ML IV CONT (20:40)
[2021-02-22 20:57] LABS: Lactic Acid Reflex 3.7 mmol/L (0.7-2.1)
[2021-02-22 21:10] LABS: Troponin I < 0.012 ng/mL (0.000-0.034)
[2021-02-22] MEDS: VANCOMYCIN ORAL 125 MG/2.5 ML SYRUP PO (22:16)
[2021-02-22] MEDS: SODIUM CHLORIDE 0.9% IV 1,000 ML 999 ML IV CONT (22:39)
[2021-02-22 23:21] LABS: Hepatitis B Surface Antigen Negative (Negative)
[2021-02-22 23:27] LABS: HAV RESULT Negative (Negative); Hepatitis B Core IgM Result Negative (Negative)
--- NOTE | 2021-02-22 23:30 | ADMGEN ---
This patient, Keisha Jaramillo, was admitted to Medical Room 241-01. Patient/family oriented to hospital policies and general routines including ID bracelet, bed and alarms, visiting hours, pain management, procedures, bathroom and other care routines, personal items, smoking policy, room service/diet, and visiting hours. Information on how to activate the Rapid Response Team has been discussed. Patient/Family are encouraged to report perceived risks to care and to ask questions if they do not understand what they are told or what they should do.
[2021-02-22 23:39] LABS: Hepatitis C Virus Antibody Negative (Negative)
[2021-02-22 23:44] LABS: Reflex Lactic Acid Yes or No Add Lactic
[2021-02-23] VITALS (11 sets, daily range): BP systolic 116–146; BP diastolic 43–67; PULSE 84–106; RESP 16–20; TEMP 36.1–37.6; O2SAT 92–96
[2021-02-23] MEDS: SODIUM CHLORIDE 0.9% IV 1,000 ML 125 ML IV CONT ×3 (00:30→23:47)
[2021-02-23 00:37] LABS: Add Urine Microscopic? YES; Appearance Urine Clear (Clear); Bilirubin Urine Negative (Negative); Blood Urine Negative (Negative); Color Urine Amber (Yellow); Glucose Urine UA 3+ mg/dL (Negative); Ketones Urine Negative (Negative); Leukocyte Esterase Ur Negative LEU/UL (Negative); Mucus Urine Rare /lpf; Nitrate Urine Negative (Negative); Protein Urine 1+ mg/dL (Negative); RBC Urine 0-2 /hpf (0-2); WBC Urine 0-3 /hpf
[2021-02-23 00:50] LABS: Specific Grav Ur 1.042 (1.001-1.035)
[2021-02-23 01:11] LABS: Lactic Acid 1.8 mmol/L (0.7-2.1)
[2021-02-23 05:13] LABS: Hemoglobin 13.3 g/dL (12.0-15.0); Mean Corpuscular HGB Conc 33.3 g/dl (32-36); Mean Corpuscular Hemoglobin 30.4 pg (26-34); Mean Corpuscular Volume 91.3 fl (80-100); Mean Platelet Volume 9.7 fl (7.4-10.4); Platelet Count Result 247 k/mm3 (150-375); Red Blood Count 4.38 M/mm3 (4.2-5.4); Red Cell Distribution Width 12.7 % (11.5-14.5); White Blood Count 28.8 K/mm3 (4.5-10.0)
[2021-02-23] MEDS: VANCOMYCIN ORAL 125 MG/2.5 ML SYRUP PO ×4 (05:30→23:47)
[2021-02-23 06:04] LABS: Alanine Aminotransferase 389 U/L (4-35); Albumin Level 2.6 g/dL (3.5-5.1); Alkaline Phosphatase 144 U/L (38-126); Anion Gap 6 mmol/L (8-16); Aspartate Amino Transferase 211 U/L (14-36); Bilirubin,Total 0.9 mg/dL (0.2-1.3); Blood Urea Nitrogen 9 mg/dL (7-17); Calcium 7.9 mg/dL (8.4-10.2); Carbon Dioxide 22 mmol/L (22-30); Chloride 99 mmol/L (98-107); Estimated CRCL calculation 53 ml/min; Estimated Glomerular Filt Rate > 60; Glucose 117 mg/dL (65-105); Sodium 127 mmol/L (137-145)
[2021-02-23 06:08] LABS: Band Neutrophils Percent 13 % (0-6); Lymphocytes Absolute Manual 0.86 K/mm3 (1.1-4.5); Monocytes Absolute Manual 2.59 K/mm3 (0.1-0.90); Monocytes Percent Manual 9 % (3-9); Neutrophils Absolute Manual 25.34 K/mm3 (1.7-7.2); Neutrophils Percent Manual 75 % (46-73); Platelet Estimate Adequate (Adequate); Total Cells Counted 100
--- NOTE | 2021-02-23 08:10 | PM.IMHP ---
H&P: HPI History of Present Illness Date/Time: 02/23/21 08:10 Chief Complaint: Nausea, vomiting, diarrhea Narrative: Patient is a 75-year-old female with a past medical history of GERD, IBS, hypertension, hyperlipidemia, who presented to the ED on 02/22/2021 for evaluation of nausea, vomiting, diarrhea, and abdominal pain. Patient stated this all started on Friday and has progressively gotten worse. Patient stated that she was sitting on the toilet when she passed out and was lying on the floor. Patient did state that she has many bowel movements which her norm is 3-5 episodes per day however, she states that it is solid. Patient stated that she was outside all day Friday sun bathing and went to the [employer] when all those came on about 2:00 a.m. she did state that her abdominal pain is about a 10/10. She stated that her pain is more on the left lower quadrant and has been unrelieved. Patient did states she was also having fevers which she said was 102.4. On a typical day the patient states that she eats some sort of an on tray with side of veggies and a salad. And then on the other days she eats out with her . Patient also stated that she while she was sun bathing she was drinking mostly soda some water. And since Friday she has been incontinent of stool with no appetite. She stated that she has not been vomiting and most of it was yesterday however she is nauseated and states that it gets worse when she gets up. When she gets up she did state that she gets lightheaded and dizzy. Patient did state that she was not having any chest pain at this time or shortness of breath, numbness and tingling, headache, increased swelling in her legs. Patient also stated that she was taking antibiotics for the last 3 months for sinus infection which looks to be Augmentin. Patient was also treated for UTI recently on 02/06/2021. Patient denies any sick contacts and stated that she has not been out of the house since Friday. C diff is still pending liver enzymes are elevated, other labs look okay potassium is low at 3 and sodium is low at 127 patient is currently getting fluids she also has leukocytosis 28.8 hemoglobin hematocrit are stable. CT of the abdomen pelvis do show abdominal wall thickening of the colon colitis infection or inflammatory processes it also shows distal esophagus having wall thickening as well. Patient is also poor historian due to health status and is unable to answer all questions due to her abdominal pain. Stool is watery however does not have any smell light brown in color. Review of Systems Review of Systems: All systems reviewed & are unremarkable except as noted in HPI and below PMFSH Past Medical History Medical History (Updated 02/23/21 @ 09:07 by MIGUEL Charles) Adenomatous colon polyp Endometriosis GERD (gastroesophageal reflux disease) HLD (hyperlipidemia) HTN (hypertension) Hypokalemia Irritable bowel syndrome with diarrhea Leg cramps Mitral valve prolapse Overweight (BMI 25.0-29.9) Recurrent sinus infections Recurrent UTI Surgical History Surgical History H/O arthroscopy of left knee H/O: hysterectomy 1981 History of cholecystectomy 2012 History of radiofrequency ablation (RFA) procedure for cardiac arrhythmia 2014 Hx of colonoscopy Status post laser cataract surgery left eye 2018 right eye 2018 Family History Family History Father Heart disease Acute myocardial infarction Mother , found after knee replacement Heart disease Acute myocardial infarction Anaphylactic reaction due to administration of blood and blood products Sibling , Sister Heart disease COPD (chronic obstructive pulmonary disease) Asthma Social History Social History (Updated 02/23/21 @ 08:21 by MIGUEL Charles) Social History: Patient lives at home
[2021-02-23] MEDS: SODIUM CHLORIDE 0.9% IV 500 ML IV CONT (09:55)
[2021-02-23] MEDS: ONDANSETRON INJ 4 MG/2 ML VIAL IV PUSH (09:56)
[2021-02-23] MEDS: CHOLECALCIFEROL 1,000 UNITS TABLET 3000 UNITS PO (10:18)
[2021-02-23] MEDS: METOPROLOL SUCCINATE EXT REL 25 MG TABCR PO (10:18)
[2021-02-23] MEDS: THERAPEUTIC MULTIVITAMINS/MINERALS TAB (*BKC) 1 TABLET PO (10:18)
[2021-02-23] MEDS: MORPHINE SULFATE (*CRX) 2 MG/ML INJ IV PUSH (10:19)
[2021-02-23] MEDS: ACIDOPHILUS/BULGARICUS CHEWABLE TABLET 1 TABLET PO (10:57)
[2021-02-23] MEDS: LOPERAMIDE HCL 2 MG CAPSULE PO (13:33)
[2021-02-23] MEDS: HYDROcodone/acetaminophen (*CRX) 5-325 MG TABLET 1 TAB PO (13:34)
[2021-02-23 18:36] LABS: Potassium 4.1 mmol/L (3.4-5.0)
[2021-02-24] VITALS (10 sets, daily range): BP systolic 110–112; BP diastolic 42–53; PULSE 76–100; RESP 18; TEMP 36.3–36.7; O2SAT 95–96
[2021-02-24] MEDS: HYDROcodone/acetaminophen (*CRX) 5-325 MG TABLET 1 TAB PO ×2 (04:01→16:55)
[2021-02-24 05:42] LABS: Hematocrit 35.8 % (37.0-47.0); Hemoglobin 12.1 g/dL (12.0-15.0); Mean Corpuscular HGB Conc 33.8 g/dl (32-36); Mean Corpuscular Hemoglobin 30.6 pg (26-34); Mean Corpuscular Volume 90.6 fl (80-100); Mean Platelet Volume 9.9 fl (7.4-10.4); Platelet Count Result 230 k/mm3 (150-375); Red Blood Count 3.95 M/mm3 (4.2-5.4); Red Cell Distribution Width 12.7 % (11.5-14.5); White Blood Count 29.5 K/mm3 (4.5-10.0)
[2021-02-24] MEDS: VANCOMYCIN ORAL 125 MG/2.5 ML SYRUP PO ×3 (05:45→17:06)
[2021-02-24 05:50] LABS: Alanine Aminotransferase 181 U/L (4-35); Albumin Level 2.3 g/dL (3.5-5.1); Alkaline Phosphatase 118 U/L (38-126); Anion Gap 4 mmol/L (8-16); Aspartate Amino Transferase 56 U/L (14-36); Bilirubin,Total 0.6 mg/dL (0.2-1.3); Blood Urea Nitrogen 12 mg/dL (7-17); Calcium 7.5 mg/dL (8.4-10.2); Carbon Dioxide 20 mmol/L (22-30); Chloride 101 mmol/L (98-107); Cholesterol 62 mg/dL (0-200); Estimated CRCL calculation 42 ml/min; Estimated Glomerular Filt Rate > 60; Glucose 99 mg/dL (65-105); HDL Direct 24 mg/dL; Magnesium 1.9 mg/dL (1.6-2.3); Potassium 3.5 mmol/L (3.4-5.0); Sodium 125 mmol/L (137-145); Triglycerides 76 mg/dL (<150)
[2021-02-24 06:27] LABS: LDL Cholesterol Direct < 30 mg/dL
[2021-02-24 06:48] LABS: Band Neutrophils Percent 5 % (0-6); Lymphocytes Absolute Manual 3.54 K/mm3 (1.1-4.5); Monocytes Absolute Manual 1.47 K/mm3 (0.1-0.90); Monocytes Percent Manual 5 % (3-9); Neutrophils Absolute Manual 24.48 K/mm3 (1.7-7.2); Neutrophils Percent Manual 78 % (46-73); Total Cells Counted 100
[2021-02-24 06:49] LABS: Platelet Estimate Adequate (Adequate); Poikilocytosis 1+ (NORMAL)
[2021-02-24] MEDS: METOPROLOL SUCCINATE EXT REL 25 MG TABCR PO (09:30)
[2021-02-24] MEDS: ENOXAPARIN 40 MG/0.4 ML SYRINGE SUB-Q (09:30)
[2021-02-24] MEDS: ACIDOPHILUS/BULGARICUS CHEWABLE TABLET 1 TABLET PO (09:30)
[2021-02-24] MEDS: CHOLECALCIFEROL 1,000 UNITS TABLET 3000 UNITS PO (09:30)
[2021-02-24] MEDS: THERAPEUTIC MULTIVITAMINS/MINERALS TAB (*BKC) 1 TABLET PO (09:30)
[2021-02-24 11:16] LABS: Sodium 124 mmol/L (137-145)
[2021-02-24] MEDS: MORPHINE SULFATE (*CRX) 2 MG/ML INJ IV PUSH (12:38)
--- NOTE | 2021-02-24 15:41 | P.PNIM_ITS ---
Progress Note: A&P Assessment and Plan (1) Colitis: Code(s): K52.9 - Noninfective gastroenteritis and colitis, unspecified Status: Acute Assessment and Plan: Multiple episodes of watery brown stool with marked leukocytosis and CT findings concerning for infectious colitis. Concerning for C. diff colitis given recent extended course of Augmentin * Continue IV Zosyn and PO Vancomycin * Await stool cultures and C. diff testing and tailor abx accordingly * Probiotic and Banatrol * Continue clear liquid diet. Advance as tolerated * Analgesics and antiemetics available as needed * Consider GI consultation if no improvement (2) Sepsis: Qualifiers: Hepatic coma status: without hepatic coma Sepsis acute organ dysfunction status: with acute organ dysfunction Sepsis type: sepsis due to unspecified organism Severe sepsis acute organ dysfunction type: acute liver failure Severe sepsis shock status: without septic shock Qualified Code(s): A41.9 - Sepsis, unspecified organism; R65.20 - Severe sepsis without septic shock; K72.00 - Acute and subacute hepatic failure without coma Code(s): A41.9 - Sepsis, unspecified organism Status: Acute Assessment and Plan: septic upon presentation with leukocytosis and tachycardia. She is afebrile. Lactic elevated at 3.8 but improved down to 1.8 with IV fluid rehydration. Source of infection is colitis * continue with antibiotics and IV fluids as described above * monitor electrolytes, CBC, and vital signs * blood cultures are pending (3) Acute hyponatremia: Code(s): E87.1 - Hypo-osmolality and hyponatremia Status: Acute Assessment and Plan: Sodium is low, down to 124 today. Secondary to acute dehydration and continued diarrhea * Resume IV fluids; sodium chloride 125 ml/hr * Discussed case with nephrology. Will give 1 amp bicarb. She is at low risk for overcorrection given continued diarrhea * Monitor sodium levels closely (4) Dehydration: Code(s): E86.0 - Dehydration Status: Acute Assessment and Plan: appears clinically dry on exam with continued diarrhea * continue IV fluids as described above * monitor electrolytes closely * monitor intake and output (5) Elevated liver enzymes: Code(s): R74.8 - Abnormal levels of other serum enzymes Status: Acute Assessment and Plan: likely due to acute infection. liver ultrasound without acute findings incidental finding of 2 cm cyst. LFTs improving. * Monitor LFTs * Hold statin (6) Hypertension: Code(s): I10 - Essential (primary) hypertension Status: Acute Assessment and Plan: BP reviewed and has been generally well controlled. Low bit on the softer side today which is likely due to dehydration. Last BP 110/46. * Metoprolol 25mg PO daily * Monitor blood pressure trends. Will hold metoprolol if BP remains the lower end (7) Hypokalemia due to excessive gastrointestinal loss of potassium: Code(s): E87.6 - Hypokalemia Status: Acute Assessment and Plan: Secondary to GI losses. Potassium 3.5 today * Begin 20 mEq PO KCl daily * Monitor potassium levels Subjective Date/time seen: 02/24/21 15:41 Interval history: date of service: 02/24/2021 Keisha Jaramillo is a 75-year-old female with history of hypertension, hyperlipidemia, GERD, IBS-D, and recurrent sinus infections recently treated with an extended course of Augmentin who is seen in follow-u
--- NOTE | 2021-02-24 15:41 | PM.IMPN ---
Progress Note: A&P Assessment and Plan (1) Colitis: Code(s): K52.9 - Noninfective gastroenteritis and colitis, unspecified Status: Acute Assessment and Plan: Multiple episodes of watery brown stool with marked leukocytosis and CT findings concerning for infectious colitis. Concerning for C. diff colitis given recent extended course of Augmentin Continue IV Zosyn and PO Vancomycin Await stool cultures and C. diff testing and tailor abx accordingly Probiotic and Banatrol Continue clear liquid diet. Advance as tolerated Analgesics and antiemetics available as needed Consider GI consultation if no improvement (2) Sepsis: Qualifiers: Hepatic coma status: without hepatic coma Sepsis acute organ dysfunction status: with acute organ dysfunction Sepsis type: sepsis due to unspecified organism Severe sepsis acute organ dysfunction type: acute liver failure Severe sepsis shock status: without septic shock Qualified Code(s): A41.9 - Sepsis, unspecified organism; R65.20 - Severe sepsis without septic shock; K72.00 - Acute and subacute hepatic failure without coma Code(s): A41.9 - Sepsis, unspecified organism Status: Acute Assessment and Plan: septic upon presentation with leukocytosis and tachycardia. She is afebrile. Lactic elevated at 3.8 but improved down to 1.8 with IV fluid rehydration. Source of infection is colitis continue with antibiotics and IV fluids as described above monitor electrolytes, CBC, and vital signs blood cultures are pending (3) Acute hyponatremia: Code(s): E87.1 - Hypo-osmolality and hyponatremia Status: Acute Assessment and Plan: Sodium is low, down to 124 today. Secondary to acute dehydration and continued diarrhea Resume IV fluids; sodium chloride 125 ml/hr Discussed case with nephrology. Will give 1 amp bicarb. She is at low risk for overcorrection given continued diarrhea Monitor sodium levels closely (4) Dehydration: Code(s): E86.0 - Dehydration Status: Acute Assessment and Plan: appears clinically dry on exam with continued diarrhea continue IV fluids as described above monitor electrolytes closely monitor intake and output (5) Elevated liver enzymes: Code(s): R74.8 - Abnormal levels of other serum enzymes Status: Acute Assessment and Plan: likely due to acute infection. liver ultrasound without acute findings incidental finding of 2 cm cyst. LFTs improving. Monitor LFTs Hold statin (6) Hypertension: Code(s): I10 - Essential (primary) hypertension Status: Acute Assessment and Plan: BP reviewed and has been generally well controlled. Low bit on the softer side today which is likely due to dehydration. Last BP 110/46. Metoprolol 25mg PO daily Monitor blood pressure trends. Will hold metoprolol if BP remains the lower end (7) Hypokalemia due to excessive gastrointestinal loss of potassium: Code(s): E87.6 - Hypokalemia Status: Acute Assessment and Plan: Secondary to GI losses. Potassium 3.5 today Begin 20 mEq PO KCl daily Monitor potassium levels Subjective Date/time seen: 02/24/21 15:41 Interval history: date of service: 02/24/2021 Keisha Jaramillo is a 75-year-old female with history of hypertension, hyperlipidemia, GERD, IBS-D, and recurrent sinus infections recently treated with an extended course of Augmentin who is seen in follow-up for colitis. She is feeling very poorly today. She is having multiple episodes of watery, brown diarrhea and notes that she is incontinent of stool. She cannot quantify how many episodes of diarrhea she has had. she has diffuse abdominal pain, worsened in lower abdomen. She is tolerating clear liquids but feels she is not drinking enough. She notes that she has not been able to urinate much today. She is not feeling dizzy or lightheaded, but s
[2021-02-24 16:16] LABS: Sodium 123 mmol/L (137-145)
[2021-02-24] MEDS: POTASSIUM CHLORIDE 20 MEQ TABLET PO (16:55)
[2021-02-24] MEDS: SODIUM CHLORIDE 0.9% IV 1,000 ML 125 ML IV CONT (16:56)
[2021-02-24] MEDS: SODIUM BICARBONATE 8.4% 50 MEQ/50 ML SYRINGE IV PUSH (17:34)
[2021-02-24] MEDS: SACCHAROMYCES BOULARDII 250 MG CAPSULE PO (19:33)
[2021-02-24 20:12] LABS: Creatinine Urine 84.7 mg/dL
[2021-02-24 20:14] LABS: Sodium Urine Random 21 meq/L
[2021-02-24] MEDS: MICONAZOLE NITRATE 2% CREAM 30 GM TUBE 1 APPLIC TOPICAL (21:40)
[2021-02-25] VITALS (10 sets, daily range): BP systolic 114–137; BP diastolic 44–50; PULSE 81–92; RESP 16–18; TEMP 36.1–36.4; O2SAT 93–96
[2021-02-25] MEDS: MORPHINE SULFATE (*CRX) 2 MG/ML INJ IV PUSH ×2 (00:01→06:56)
[2021-02-25 00:03] LABS: Sodium 124 mmol/L (137-145)
[2021-02-25] MEDS: SODIUM CHLORIDE 0.9% IV 1,000 ML 125 ML IV CONT ×3 (02:00→23:39)
[2021-02-25] MEDS: VANCOMYCIN ORAL 125 MG/2.5 ML SYRUP PO ×5 (06:08→23:40)
[2021-02-25 06:11] LABS: Hematocrit 32.4 % (37.0-47.0); Hemoglobin 10.8 g/dL (12.0-15.0); Mean Corpuscular HGB Conc 33.3 g/dl (32-36); Mean Corpuscular Hemoglobin 30.3 pg (26-34); Mean Corpuscular Volume 90.8 fl (80-100); Mean Platelet Volume 9.7 fl (7.4-10.4); Platelet Count Result 236 k/mm3 (150-375); Red Blood Count 3.57 M/mm3 (4.2-5.4); Red Cell Distribution Width 12.5 % (11.5-14.5); White Blood Count 24.4 K/mm3 (4.5-10.0)
[2021-02-25 06:26] LABS: Alanine Aminotransferase 105 U/L (4-35); Albumin Level 2.2 g/dL (3.5-5.1); Alkaline Phosphatase 107 U/L (38-126); Anion Gap 3 mmol/L (8-16); Aspartate Amino Transferase 36 U/L (14-36); Bilirubin,Total 0.5 mg/dL (0.2-1.3); Blood Urea Nitrogen 7 mg/dL (7-17); Calcium 7.5 mg/dL (8.4-10.2); Carbon Dioxide 26 mmol/L (22-30); Chloride 97 mmol/L (98-107); Estimated CRCL calculation 47 ml/min; Estimated Glomerular Filt Rate > 60; Glucose 87 mg/dL (65-105); Potassium 3.2 mmol/L (3.4-5.0); Sodium 126 mmol/L (137-145)
[2021-02-25 06:46] LABS: Band Neutrophils Percent 9 % (0-6); Burr Cells 1+ (NORMAL); Eosinophils Absolute Manual 0.24 K/mm3 (0.02-0.5); Eosinophils Percent Manual 1 % (0-4); Lymphocytes Absolute Manual 1.22 K/mm3 (1.1-4.5); Monocytes Absolute Manual 0.48 K/mm3 (0.1-0.90); Monocytes Percent Manual 2 % (3-9); Neutrophils Absolute Manual 22.44 K/mm3 (1.7-7.2); Neutrophils Percent Manual 83 % (46-73); Platelet Estimate Adequate (Adequate); Total Cells Counted 100
--- NOTE | 2021-02-25 08:12 | P.PNIM_ITS ---
Progress Note: A&P Assessment and Plan (1) Colitis: Code(s): K52.9 - Noninfective gastroenteritis and colitis, unspecified Status: Acute Assessment and Plan: Multiple episodes of watery brown stool with marked leukocytosis and CT findings concerning for infectious colitis. Concerning for C. diff colitis given recent extended course of Augmentin * Continue IV Zosyn and PO Vancomycin * Await stool cultures and C. diff testing (results will be available this afternoon per lab). Tailor abx accordingly * Probiotic and Banatrol * continue full liquid diet. Advance to bland diet as tolerated * Analgesics and antiemetics available as needed (2) Sepsis: Qualifiers: Hepatic coma status: without hepatic coma Sepsis acute organ dysfunction status: with acute organ dysfunction Sepsis type: sepsis due to unspecified organism Severe sepsis acute organ dysfunction type: acute liver failure Severe sepsis shock status: without septic shock Qualified Code(s): A41.9 - Sepsis, unspecified organism; R65.20 - Severe sepsis without septic shock; K72.00 - Acute and subacute hepatic failure without coma Code(s): A41.9 - Sepsis, unspecified organism Status: Acute Assessment and Plan: Septic upon presentation with leukocytosis and tachycardia. She is afebrile. Lactic elevated at 3.8 but improved down to 1.8 with IV fluid rehydration. Source of infection is colitis * continue with antibiotics and IV fluids as described above * monitor electrolytes, CBC, and vital signs * preliminary blood cultures negative to date (3) Acute hyponatremia: Code(s): E87.1 - Hypo-osmolality and hyponatremia Status: Acute Assessment and Plan: Secondary to acute dehydration and continued diarrhea. FENa is 0.2%. Slight improvement in sodium to 126 today. * Continue IV fluids; sodium chloride 125 ml/hr * Discussed case with nephrology. received 1 amp bicarb yesterday. She is at low risk for overcorrection given continued diarrhea * Monitor sodium levels q4h for appropriate rate of correction (4) Dehydration: Code(s): E86.0 - Dehydration Status: Acute Assessment and Plan: appears clinically dry on exam with continued diarrhea * continue IV fluids as described above * monitor electrolytes closely * monitor intake and output (5) Elevated liver enzymes: Code(s): R74.8 - Abnormal levels of other serum enzymes Status: Acute Assessment and Plan: likely due to acute infection. liver ultrasound without acute findings with incidental finding of 2 cm cyst. LFTs improving with normalization of AST and ALP * Monitor LFTs * Hold statin * Follow up with primary regarding monitoring of incidental liver cyst (6) Hypertension: Code(s): I10 - Essential (primary) hypertension Status: Acute Assessment and Plan: BP reviewed and has been generally well controlled in the low-normal range which is likely due to dehydration. Last BP 119/46. * Metoprolol 25mg PO daily * Monitor blood pressure trends (7) Hypokalemia due to excessive gastrointestinal loss of potassium: Code(s): E87.6 - Hypokalemia Status: Acute Assessment and Plan: Secondary to GI losses. Potassium 3.2 today * 40 mEq KCl PO this am * Continue 20 mEq KCl bid with meals * Monitor potassium levels Additional Plan Left upper extremity edema - will check venous doppler Chronic sinus congestion - begin claritin and flonase Michelle
--- NOTE | 2021-02-25 08:12 | PM.IMPN ---
Progress Note: A&P Assessment and Plan (1) Colitis: Code(s): K52.9 - Noninfective gastroenteritis and colitis, unspecified Status: Acute Assessment and Plan: Multiple episodes of watery brown stool with marked leukocytosis and CT findings concerning for infectious colitis. Concerning for C. diff colitis given recent extended course of Augmentin Continue IV Zosyn and PO Vancomycin Await stool cultures and C. diff testing (results will be available this afternoon per lab). Tailor abx accordingly Probiotic and Banatrol continue full liquid diet. Advance to bland diet as tolerated Analgesics and antiemetics available as needed (2) Sepsis: Qualifiers: Hepatic coma status: without hepatic coma Sepsis acute organ dysfunction status: with acute organ dysfunction Sepsis type: sepsis due to unspecified organism Severe sepsis acute organ dysfunction type: acute liver failure Severe sepsis shock status: without septic shock Qualified Code(s): A41.9 - Sepsis, unspecified organism; R65.20 - Severe sepsis without septic shock; K72.00 - Acute and subacute hepatic failure without coma Code(s): A41.9 - Sepsis, unspecified organism Status: Acute Assessment and Plan: Septic upon presentation with leukocytosis and tachycardia. She is afebrile. Lactic elevated at 3.8 but improved down to 1.8 with IV fluid rehydration. Source of infection is colitis continue with antibiotics and IV fluids as described above monitor electrolytes, CBC, and vital signs preliminary blood cultures negative to date (3) Acute hyponatremia: Code(s): E87.1 - Hypo-osmolality and hyponatremia Status: Acute Assessment and Plan: Secondary to acute dehydration and continued diarrhea. FENa is 0.2%. Slight improvement in sodium to 126 today. Continue IV fluids; sodium chloride 125 ml/hr Discussed case with nephrology. received 1 amp bicarb yesterday. She is at low risk for overcorrection given continued diarrhea Monitor sodium levels q4h for appropriate rate of correction (4) Dehydration: Code(s): E86.0 - Dehydration Status: Acute Assessment and Plan: appears clinically dry on exam with continued diarrhea continue IV fluids as described above monitor electrolytes closely monitor intake and output (5) Elevated liver enzymes: Code(s): R74.8 - Abnormal levels of other serum enzymes Status: Acute Assessment and Plan: likely due to acute infection. liver ultrasound without acute findings with incidental finding of 2 cm cyst. LFTs improving with normalization of AST and ALP Monitor LFTs Hold statin Follow up with primary regarding monitoring of incidental liver cyst (6) Hypertension: Code(s): I10 - Essential (primary) hypertension Status: Acute Assessment and Plan: BP reviewed and has been generally well controlled in the low-normal range which is likely due to dehydration. Last BP 119/46. Metoprolol 25mg PO daily Monitor blood pressure trends (7) Hypokalemia due to excessive gastrointestinal loss of potassium: Code(s): E87.6 - Hypokalemia Status: Acute Assessment and Plan: Secondary to GI losses. Potassium 3.2 today 40 mEq KCl PO this am Continue 20 mEq KCl bid with meals Monitor potassium levels Additional Plan Left upper extremity edema - will check venous doppler Chronic sinus congestion - begin claritin and flonase Subjective Date/time seen: 02/25/21 08:12 Interval history: date of service: 02/25/2021 Keisha Jaramillo is a 75-year-old female with history of hypertension, hyperlipidemia, GERD, IBS-D, and recurrent sinus infections recently treated with an extended course of Augmentin who is seen in follow-up for colitis.She was starting to feel better last night but notes that she has had a difficult morning today. She is complaining of abdominal bloa
[2021-02-25] MEDS: POTASSIUM CHLORIDE 20 MEQ TABLET PO (08:28)
[2021-02-25] MEDS: HYDROcodone/acetaminophen (*CRX) 5-325 MG TABLET 1 TAB PO ×2 (08:28→21:14)
[2021-02-25] MEDS: POTASSIUM CHLORIDE 20 MEQ TABLET.ER PO ×2 (08:28→17:23)
[2021-02-25] MEDS: CHOLECALCIFEROL 1,000 UNITS TABLET 3000 UNITS PO (08:29)
[2021-02-25] MEDS: METOPROLOL SUCCINATE EXT REL 25 MG TABCR PO (08:29)
[2021-02-25] MEDS: MICONAZOLE NITRATE 2% CREAM 30 GM TUBE 1 APPLIC TOPICAL ×2 (08:30→21:11)
[2021-02-25] MEDS: ENOXAPARIN 40 MG/0.4 ML SYRINGE SUB-Q (08:30)
[2021-02-25] MEDS: THERAPEUTIC MULTIVITAMINS/MINERALS TAB (*BKC) 1 TABLET PO (08:30)
[2021-02-25] MEDS: SACCHAROMYCES BOULARDII 250 MG CAPSULE PO ×2 (08:30→17:23)
[2021-02-25] MEDS: ONDANSETRON INJ 4 MG/2 ML VIAL IV PUSH (09:48)
[2021-02-25 10:58] LABS: Sodium 126 mmol/L (137-145)
[2021-02-25 14:40] LABS: Sodium 127 mmol/L (137-145)
[2021-02-25] MEDS: SIMETHICONE 80 MG TAB.CHEW PO (17:27)
[2021-02-25] MEDS: FLUTICASONE PROPIONATE 0.05% NA SPR 16 GM BTL (*BKC) 1 SPRAY NASAL (21:11)
[2021-02-25 22:14] LABS: Sodium 127 mmol/L (137-145)
[2021-02-26] VITALS (10 sets, daily range): BP systolic 134–137; BP diastolic 46–50; PULSE 78–89; RESP 16–21; TEMP 36.4–36.5; O2SAT 92–100
[2021-02-26 05:49] LABS: Hematocrit 32.5 % (37.0-47.0); Mean Corpuscular HGB Conc 33.8 g/dl (32-36); Mean Corpuscular Hemoglobin 30.5 pg (26-34); Mean Platelet Volume 9.1 fl (7.4-10.4); Platelet Count Result 282 k/mm3 (150-375); Red Blood Count 3.61 M/mm3 (4.2-5.4); Red Cell Distribution Width 12.7 % (11.5-14.5); White Blood Count 14.1 K/mm3 (4.5-10.0)
[2021-02-26 05:55] LABS: Anion Gap 3 mmol/L (8-16); Blood Urea Nitrogen 4 mg/dL (7-17); Calcium 7.5 mg/dL (8.4-10.2); Carbon Dioxide 26 mmol/L (22-30); Chloride 98 mmol/L (98-107); Estimated CRCL calculation 53 ml/min; Estimated Glomerular Filt Rate > 60; Glucose 88 mg/dL (65-105); Potassium 3.3 mmol/L (3.4-5.0); Sodium 127 mmol/L (137-145)
[2021-02-26 06:24] LABS: Band Neutrophils Percent 6 % (0-6); Eosinophils Absolute Manual 0.42 K/mm3 (0.02-0.5); Eosinophils Percent Manual 3 % (0-4); Lymphocytes Absolute Manual 0.98 K/mm3 (1.1-4.5); Lymphocytes Percent Manual 7 % (18-44); Monocytes Absolute Manual 0.42 K/mm3 (0.1-0.90); Monocytes Percent Manual 3 % (3-9); Neutrophils Absolute Manual 12.26 K/mm3 (1.7-7.2); Neutrophils Percent Manual 81 % (46-73); Total Cells Counted 100
[2021-02-26 06:25] LABS: Platelet Estimate Adequate (Adequate)
[2021-02-26] MEDS: VANCOMYCIN ORAL 125 MG/2.5 ML SYRUP PO ×3 (07:01→17:37)
[2021-02-26] MEDS: MORPHINE SULFATE (*CRX) 2 MG/ML INJ IV PUSH (09:32)
[2021-02-26] MEDS: POTASSIUM CHLORIDE 20 MEQ TABLET.ER PO ×2 (09:33→17:37)
[2021-02-26] MEDS: METOPROLOL SUCCINATE EXT REL 25 MG TABCR PO (09:33)
[2021-02-26] MEDS: ENOXAPARIN 40 MG/0.4 ML SYRINGE SUB-Q (09:33)
[2021-02-26] MEDS: LORATADINE 5 MG TABLET PO (09:33)
[2021-02-26] MEDS: THERAPEUTIC MULTIVITAMINS/MINERALS TAB (*BKC) 1 TABLET PO (09:33)
[2021-02-26] MEDS: CHOLECALCIFEROL 1,000 UNITS TABLET 3000 UNITS PO (09:33)
[2021-02-26] MEDS: FLUTICASONE PROPIONATE 0.05% NA SPR 16 GM BTL (*BKC) 1 SPRAY NASAL ×2 (09:33→21:48)
[2021-02-26] MEDS: SACCHAROMYCES BOULARDII 250 MG CAPSULE PO ×2 (09:34→17:37)
[2021-02-26] MEDS: MICONAZOLE NITRATE 2% CREAM 30 GM TUBE 1 APPLIC TOPICAL ×2 (09:36→21:48)
[2021-02-26] MEDS: SODIUM CHLORIDE 0.9% IV 1,000 ML 125 ML IV CONT ×2 (09:43→16:05)
--- NOTE | 2021-02-26 10:40 | PM.IMPN ---
Progress Note: A&P Assessment and Plan (1) C. difficile colitis: Code(s): A04.72 - Enterocolitis due to Clostridium difficile, not specified as recurrent Status: Acute Assessment and Plan: C. diff toxin detected. Multiple episodes of watery brown stool with marked leukocytosis and CT findings consistent with colitis. She recently completed an extended course of Augmentin. Continue PO Vancomycin. IV Zosyn discontinued. Probiotic and Banatrol Advance to bland diet. Analgesics and antiemetics available as needed (2) Sepsis: Qualifiers: Hepatic coma status: without hepatic coma Sepsis acute organ dysfunction status: with acute organ dysfunction Sepsis type: sepsis due to unspecified organism Severe sepsis acute organ dysfunction type: acute liver failure Severe sepsis shock status: without septic shock Qualified Code(s): A41.9 - Sepsis, unspecified organism; R65.20 - Severe sepsis without septic shock; K72.00 - Acute and subacute hepatic failure without coma Code(s): A41.9 - Sepsis, unspecified organism Status: Acute Assessment and Plan: Septic upon presentation with leukocytosis and tachycardia. She is afebrile. Lactic elevated at 3.8 but improved down to 1.8 with IV fluid rehydration. Source of infection is C. diff colitis. Leukocytosis is improving. continue with antibiotics and IV fluids monitor electrolytes, CBC, and vital signs preliminary blood cultures negative to date (3) Acute hyponatremia: Code(s): E87.1 - Hypo-osmolality and hyponatremia Status: Acute Assessment and Plan: Secondary to acute dehydration and continued diarrhea. FENa is 0.2%. Sodium improving at appropriate rate and remaining stable at 127 today Continue IV fluids; sodium chloride 125 ml/hr Discussed case with nephrology. received 1 amp bicarb 02/24. She is at low risk for overcorrection given continued diarrhea Monitor sodium levels q12h (4) Dehydration: Code(s): E86.0 - Dehydration Status: Acute Assessment and Plan: Presented with acute dehydration secondary to persistent diarrhea. Improving based on clinical exam. continue IV fluids as described above monitor electrolytes closely monitor intake and output (5) Elevated liver enzymes: Code(s): R74.8 - Abnormal levels of other serum enzymes Status: Acute Assessment and Plan: Likely due to acute infection. liver ultrasound without acute findings with incidental finding of 2 cm cyst. LFTs improving with normalization of AST and ALP Monitor LFTs Statin is on hold. Follow up with primary regarding monitoring of incidental liver cyst (6) Hypertension: Code(s): I10 - Essential (primary) hypertension Status: Acute Assessment and Plan: BP reviewed and has been generally well controlled in the low-normal range which is likely due to dehydration. Last BP 106/46. Metoprolol 25mg PO daily Monitor blood pressure trends (7) Hypokalemia due to excessive gastrointestinal loss of potassium: Code(s): E87.6 - Hypokalemia Status: Acute Assessment and Plan: Secondary to GI losses. Potassium 3.3 today Continue 20 mEq KCl bid with meals Monitor potassium levels Subjective Date/time seen: 02/26/21 10:40 Interval history: date of service: 02/26/2021 Keisha Jaramillo is a 75-year-old female with history of hypertension, hyperlipidemia, GERD, IBS-D, and recurrent sinus infections recently treated with an extended course of Augmentin who is seen in follow-up for colitis.She started to feel little bit better today. Feels her stool is thickening. She is still having multiple episodes and estimates 6 loose stools so far this morning. She is tolerating her diet. She denies nausea or vomiting, No fevers or chills. She continues to complain of cramping abdominal pain but states this improved with passing f
[2021-02-26] MEDS: HYDROcodone/acetaminophen (*CRX) 5-325 MG TABLET 1 TAB PO (12:31)
[2021-02-26 19:48] LABS: Sodium 128 mmol/L (137-145)
[2021-02-27] VITALS (8 sets, daily range): BP systolic 133–140; BP diastolic 53–55; PULSE 79–91; RESP 18; TEMP 36.1–36.6; O2SAT 96–97
[2021-02-27] MEDS: VANCOMYCIN ORAL 125 MG/2.5 ML SYRUP PO ×5 (00:04→23:51)
[2021-02-27] MEDS: SODIUM CHLORIDE 0.9% IV 1,000 ML 125 ML IV CONT ×2 (00:05→08:25)
[2021-02-27] MEDS: HYDROcodone/acetaminophen (*CRX) 5-325 MG TABLET 1 TAB PO ×2 (01:29→12:02)
[2021-02-27 05:40] LABS: Basophils Absolute Auto 0.1 K/mm3 (0.0-0.1); Basophils Percent Auto 0.7 % (0.2-1.2); Eosinophils Absolute Auto 0.3 K/mm3 (0-0.3); Eosinophils Percent Auto 2.7 % (0-4.4); Hematocrit 33.8 % (37.0-47.0); Hemoglobin 10.9 g/dL (12.0-15.0); Lymphocytes Absolute Auto 0.72 K/mm3 (0.9-3.2); Lymphocytes Percent Auto 7.2 % (18.3-44.2); Mean Corpuscular HGB Conc 32.2 g/dl (32-36); Mean Corpuscular Hemoglobin 30.1 pg (26-34); Mean Corpuscular Volume 93.4 fl (80-100); Mean Platelet Volume 8.8 fl (7.4-10.4); Monocytes Absolute Auto 0.7 K/mm3 (0.1-0.6); Monocytes Percent Auto 6.9 % (2.6-8.5); Neutrophils Absolute Auto 7.6 K/mm3 (1.3-6.7); Neutrophils Percent Auto 75.5 % (45.5-73.1); Platelet Count Result 299 k/mm3 (150-375); Red Blood Count 3.62 M/mm3 (4.2-5.4); White Blood Count 10.1 K/mm3 (4.5-10.0)
[2021-02-27 05:50] LABS: Alanine Aminotransferase 65 U/L (4-35); Albumin Level 2.3 g/dL (3.5-5.1); Alkaline Phosphatase 99 U/L (38-126); Anion Gap 1 mmol/L (8-16); Aspartate Amino Transferase 44 U/L (14-36); Bilirubin,Total 0.1 mg/dL (0.2-1.3); Calcium 7.5 mg/dL (8.4-10.2); Carbon Dioxide 27 mmol/L (22-30); Chloride 103 mmol/L (98-107); Estimated CRCL calculation 61 ml/min; Estimated Glomerular Filt Rate > 60; Glucose 106 mg/dL (65-105); Potassium 3.3 mmol/L (3.4-5.0); Sodium 131 mmol/L (137-145)
[2021-02-27] MEDS: ACETAMINOPHEN 325 MG TABLET 650 MG PO ×2 (05:59→17:35)
[2021-02-27 06:35] LABS: Blood Urea Nitrogen < 2 mg/dL (7-17)
[2021-02-27] MEDS: POTASSIUM CHLORIDE 20 MEQ TABLET.ER PO ×2 (08:25→17:35)
[2021-02-27] MEDS: METOPROLOL SUCCINATE EXT REL 25 MG TABCR PO (08:26)
[2021-02-27] MEDS: THERAPEUTIC MULTIVITAMINS/MINERALS TAB (*BKC) 1 TABLET PO (08:26)
[2021-02-27] MEDS: SACCHAROMYCES BOULARDII 250 MG CAPSULE PO ×2 (08:26→17:35)
[2021-02-27] MEDS: FLUTICASONE PROPIONATE 0.05% NA SPR 16 GM BTL (*BKC) 1 SPRAY NASAL ×2 (08:26→20:04)
[2021-02-27] MEDS: ENOXAPARIN 40 MG/0.4 ML SYRINGE SUB-Q (08:26)
[2021-02-27] MEDS: LORATADINE 5 MG TABLET PO (08:26)
[2021-02-27] MEDS: CHOLECALCIFEROL 1,000 UNITS TABLET 3000 UNITS PO (08:26)
[2021-02-27] MEDS: MICONAZOLE NITRATE 2% CREAM 30 GM TUBE 1 APPLIC TOPICAL ×2 (08:27→20:04)
--- NOTE | 2021-02-27 12:19 | PM.IMPN ---
Progress Note: A&P Assessment and Plan (1) C. difficile colitis: Code(s): A04.72 - Enterocolitis due to Clostridium difficile, not specified as recurrent Status: Acute Assessment and Plan: C. diff toxin detected. Multiple episodes of watery brown stool with marked leukocytosis and CT findings consistent with colitis. She recently completed an extended course of Augmentin for sinus infection. Still with 6 BMs this morning. Continue PO Vancomycin (day 5). IV Zosyn discontinued. Probiotic and Banatrol Tolerating bland diet with some abdominal cramping. Analgesics and antiemetics available as needed (2) Sepsis: Qualifiers: Hepatic coma status: without hepatic coma Sepsis acute organ dysfunction status: with acute organ dysfunction Sepsis type: sepsis due to unspecified organism Severe sepsis acute organ dysfunction type: acute liver failure Severe sepsis shock status: without septic shock Qualified Code(s): A41.9 - Sepsis, unspecified organism; R65.20 - Severe sepsis without septic shock; K72.00 - Acute and subacute hepatic failure without coma Code(s): A41.9 - Sepsis, unspecified organism Status: Acute Assessment and Plan: Evident on arrival with leukocytosis and tachycardia. She is afebrile. Lactic elevated at 3.8 but improved down to 1.8 with IV fluid rehydration. Source of infection is C. diff colitis. Leukocytosis is improving. Continue with antibiotics and IV fluids, decrease IV fluid rate. Monitor electrolytes, leukocytosis, and vital signs Preliminary blood cultures negative to date (3) Acute hyponatremia: Code(s): E87.1 - Hypo-osmolality and hyponatremia Status: Acute Assessment and Plan: Secondary to acute dehydration and continued diarrhea. FENa is 0.2%. Sodium improving at appropriate rate and remaining stable at 131 today Continue IV fluids; sodium chloride 75 ml/hr Previous provider discussed case with nephrology. Received 1 amp bicarb 02/24. She is at low risk for overcorrection given continued diarrhea Continue to monitor serum sodium. (4) Dehydration: Code(s): E86.0 - Dehydration Status: Acute Assessment and Plan: Presented with acute dehydration secondary to persistent diarrhea. Improving based on clinical exam. Continue IV fluids as described above Monitor electrolytes closely Monitor intake and output (5) Elevated liver enzymes: Code(s): R74.8 - Abnormal levels of other serum enzymes Status: Acute Assessment and Plan: Likely due to acute infection. Liver ultrasound without acute findings with incidental finding of 2 cm cyst. LFTs fluctuating but improving/stable. Monitor LFTs Statin is on hold. Follow up with PCP to monitor incidental liver cyst (6) Hypertension: Code(s): I10 - Essential (primary) hypertension Status: Acute Assessment and Plan: BP reviewed and stable, last 133/53. Metoprolol 25mg PO daily. Monitor BP and adjust treatment as needed. (7) Hypokalemia due to excessive gastrointestinal loss of potassium: Code(s): E87.6 - Hypokalemia Status: Acute Assessment and Plan: Secondary to GI losses. Potassium 3.3 today Continue 20 mEq KCl bid with meals Monitor potassium levels (8) Superficial thrombophlebitis of arm: Code(s): I80.8 - Phlebitis and thrombophlebitis of other sites Status: Acute Assessment and Plan: Venous doppler shows thrombus in left cephalic vein (superficial). Continue supportive care with analgesics and warm compress. Additional Plan C
[2021-02-27] MEDS: SODIUM CHLORIDE 0.9% IV 1,000 ML 75 ML IV CONT (17:34)
[2021-02-28] MEDS: HYDROcodone/acetaminophen (*CRX) 5-325 MG TABLET 1 TAB PO (00:52)
[2021-02-28] MEDS: ACETAMINOPHEN 325 MG TABLET 650 MG PO ×3 (02:43→21:29)
[2021-02-28 06:00] VITALS: BP 147/58; PULSE 80; RESP 21; TEMP 36.3; O2SAT 100
[2021-02-28] MEDS: VANCOMYCIN ORAL 125 MG/2.5 ML SYRUP PO ×2 (06:06→12:00)
[2021-02-28 06:11] LABS: Hemoglobin 10.2 g/dL (12.0-15.0); Mean Corpuscular HGB Conc 31.9 g/dl (32-36); Mean Corpuscular Hemoglobin 29.8 pg (26-34); Mean Corpuscular Volume 93.6 fl (80-100); Mean Platelet Volume 8.6 fl (7.4-10.4); Platelet Count Result 284 k/mm3 (150-375); Red Blood Count 3.42 M/mm3 (4.2-5.4); Red Cell Distribution Width 13.2 % (11.5-14.5); White Blood Count 7.6 K/mm3 (4.5-10.0)
[2021-02-28 06:29] LABS: Alanine Aminotransferase 58 U/L (4-35); Albumin Level 2.2 g/dL (3.5-5.1); Alkaline Phosphatase 79 U/L (38-126); Anion Gap 1 mmol/L (8-16); Aspartate Amino Transferase 51 U/L (14-36); Bilirubin,Total 0.1 mg/dL (0.2-1.3); Calcium 7.5 mg/dL (8.4-10.2); Carbon Dioxide 27 mmol/L (22-30); Chloride 103 mmol/L (98-107); Estimated CRCL calculation 61 ml/min; Estimated Glomerular Filt Rate > 60; Glucose 96 mg/dL (65-105); Potassium 3.4 mmol/L (3.4-5.0); Sodium 131 mmol/L (137-145)
[2021-02-28] MEDS: SODIUM CHLORIDE 0.9% IV 1,000 ML 75 ML IV CONT (07:13)
[2021-02-28 07:43] LABS: Blood Urea Nitrogen < 2 mg/dL (7-17)
[2021-02-28] MEDS: CHOLECALCIFEROL 1,000 UNITS TABLET 3000 UNITS PO (08:30)
[2021-02-28 08:31] VITALS: PULSE 80
[2021-02-28] MEDS: METOPROLOL SUCCINATE EXT REL 25 MG TABCR PO (08:31)
[2021-02-28] MEDS: ENOXAPARIN 40 MG/0.4 ML SYRINGE SUB-Q (08:31)
[2021-02-28] MEDS: POTASSIUM CHLORIDE 20 MEQ TABLET.ER PO (08:31)
[2021-02-28] MEDS: FLUTICASONE PROPIONATE 0.05% NA SPR 16 GM BTL (*BKC) 1 SPRAY NASAL ×2 (08:31→21:27)
[2021-02-28] MEDS: SACCHAROMYCES BOULARDII 250 MG CAPSULE PO (08:31)
[2021-02-28] MEDS: LORATADINE 5 MG TABLET PO (08:31)
[2021-02-28] MEDS: MICONAZOLE NITRATE 2% CREAM 30 GM TUBE 1 APPLIC TOPICAL ×2 (08:34→21:31)
--- NOTE | 2021-02-28 11:06 | PM.IMPN ---
Progress Note: A&P Assessment and Plan (1) C. difficile colitis: Code(s): A04.72 - Enterocolitis due to Clostridium difficile, not specified as recurrent Status: Acute Assessment and Plan: C. diff toxin detected. Multiple episodes of watery brown stool with marked leukocytosis and CT findings consistent with colitis. She recently completed an extended course of Augmentin for sinus infection. Still with 8 BMs this morning. Continue PO Vancomycin (day 6). Patient reports it is not uncommon for her to have 5 loose BMs on a normal day given her IBS-D, however given the amount of BMs she is still having and her ongoing abdominal cramping with poor appetite despite treatment with oral vancomycin, appreciate GI recommendations whether or not antibiotics need to be changed (add flagyl or change to fidaxomicin?). CT with mild thickening of esophagus and stomach - add PPI pending GI input. Continue probiotic and Banatrol. She admits she has not actually been eating the applesauce+banatrol due to poor appetite but I have encouraged her to try today. Tolerating bland diet with some abdominal cramping. Analgesics and antiemetics available as needed. (2) Sepsis: Qualifiers: Sepsis type: sepsis due to unspecified organism Sepsis acute organ dysfunction status: with acute organ dysfunction Severe sepsis acute organ dysfunction type: acute liver failure Hepatic coma status: without hepatic coma Severe sepsis shock status: without septic shock Qualified Code(s): A41.9 - Sepsis, unspecified organism; R65.20 - Severe sepsis without septic shock; K72.00 - Acute and subacute hepatic failure without coma Code(s): A41.9 - Sepsis, unspecified organism Status: Acute Assessment and Plan: Evident on arrival with leukocytosis and tachycardia. She is afebrile. Lactic was initially elevated at 3.8 but improved down to 1.8 with IV fluid rehydration. Source of infection is C. diff colitis. Leukocytosis is resolved. Continue with oral vancomycin and gentle IV hydration as she is still not tolerating much to eat/drink. Monitor electrolytes, leukocytosis, and vital signs Preliminary blood cultures negative to date (3) Acute hyponatremia: Code(s): E87.1 - Hypo-osmolality and hyponatremia Status: Acute Assessment and Plan: Secondary to acute dehydration and continued diarrhea. FENa is 0.2%. Sodium improving at appropriate rate and remaining stable at 131 today Continue IV fluids; sodium chloride 50 ml/hr Previous provider discussed case with nephrology. Received 1 amp bicarb 02/24. She is at low risk for overcorrection given continued diarrhea Continue to monitor serum sodium. (4) Dehydration: Code(s): E86.0 - Dehydration Status: Acute Assessment and Plan: Presented with acute dehydration secondary to persistent diarrhea. Improving based on clinical exam. Continue IV fluids as described above Monitor electrolytes closely Monitor intake and output (5) Elevated liver enzymes: Code(s): R74.8 - Abnormal levels of other serum enzymes Status: Acute Assessment and Plan: Likely due to acute infection. Liver ultrasound without acute findings with incidental finding of 2 cm cyst. LFTs fluctuating but improving/stable. Monitor LFTs Statin is on hold. Follow up with PCP to monitor incidental liver cyst (6) Hypertension: Code(s): I10 - Essential (primary) hypertension Status: Chronic Assessment and Plan: BP reviewed and stable, last 147/58. Metoprolol 25mg PO daily. Monitor BP and adjust treatment as needed. (7) Hypokalemia due to excessive gastrointestinal loss of
[2021-02-28] MEDS: PANTOPRAZOLE 40 MG TABLET PO (12:00)
[2021-02-28] MEDS: THERAPEUTIC MULTIVITAMINS/MINERALS TAB (*BKC) 1 TABLET PO (12:00)
[2021-02-28] MEDS: SIMETHICONE 80 MG TAB.CHEW PO (12:12)
[2021-02-28 14:05] VITALS: BP 153/60; PULSE 89; RESP 18; TEMP 36.9; O2SAT 99
--- NOTE | 2021-02-28 16:49 | WPDGICN ---
Assessment and Plan Assessment and plan (1) C. difficile colitis: Code(s): A04.72 - Enterocolitis due to Clostridium difficile, not specified as recurrent Status: Acute Assessment and Plan: Patient with C difficile colitis. CT scan reveals diffuse colitis consistent with this infection. Agree with oral vancomycin. She may not be able to eat as she clinically appears to have an ileus. Plan is for obstructive series and possible NG tube decompression. She may benefit from the addition of intravenous Flagyl until she can tolerate oral intake. (2) Abnormal CT scan: Code(s): R93.89 - Abnormal findings on diagnostic imaging of other specified body structures Status: Acute Assessment and Plan: CT scan suggests thickening of the distal esophagus. Cannot exclude underlying esophagitis. PPI therapy intravenously may be helpful initially. She has no dysphagia or chest pain at this time. This may be a spurious finding. GI Consult Note Consult date/time: 02/28/21 16:49 HPI: Keisha Jaramillo is a 75 year old female Seen in evaluation at the request of the hospitalist service. Patient reports a long history of frequent bowel movements. She is felt to have underlying irritable bowel syndrome with diarrhea predominance. Underwent colonoscopy by Dr. Perez for screening purposes 1 year ago that was essentially unremarkable. Patient reports that she developed rather significant profound diarrhea associated with abdominal pain and cramping. She was found to have C difficile colitis. Admitted to the hospital 1 week ago. She continues to have rather diffuse abdominal pain bloating cramping. She has fecal incontinence with poor control of stool. She denies any bleeding. She has been unable to eat or advance her diet. White count has become quite elevated. Review of Systems Review of Systems: All systems reviewed & are unremarkable except as noted in HPI and below PMFSH Past Medical History Medical History (Updated 02/28/21 @ 16:57 by Ranulfo Strickland MD) Adenomatous colon polyp Endometriosis GERD (gastroesophageal reflux disease) HLD (hyperlipidemia) HTN (hypertension) Hypokalemia Irritable bowel syndrome with diarrhea Leg cramps Mitral valve prolapse Overweight (BMI 25.0-29.9) Recurrent sinus infections Recurrent UTI Surgical History Surgical History H/O arthroscopy of left knee H/O: hysterectomy 1980 History of cholecystectomy 2012 History of radiofrequency ablation (RFA) procedure for cardiac arrhythmia 2014 Hx of colonoscopy Status post laser cataract surgery left eye 2018 right eye 2018 Family History Family History Father Heart disease Acute myocardial infarction Mother , found after knee replacement Heart disease Acute myocardial infarction Anaphylactic reaction due to administration of blood and blood products Sibling , Sister Heart disease COPD (chronic obstructive pulmonary disease) Asthma Social History Social History (Updated 02/23/21 @ 08:21 by MIGUEL Charles) Social History: Patient lives at home with her and at this time wishes to be a full code. Her is her surrogate if she was unable to make any decisions. Smoking status: Never smoker Alcohol intake: never Substance use: never Gender identity (if verbalized by the patient): Female Spiritual care concerns: No Meds Home Medications and Allergies Home Medications Medication Instructions Recorded Confirmed Type atorvastatin 20 mg PO DAILY 03/17/20 02/22/21 History biotin 5,000 mcg SUBLINGUAL DAILY 03/17/20 02/22/21 History cholecalciferol (vitamin D3) 75 mcg PO DAILY 03/17/20 02/22/21 History cinnamon bark [Cinnamon] 1,000 mg PO DAILY 03/17/20 02/22/21 History coenzyme Q10 [Co Q-10] 200 mg PO DAILY 03/17/20
[2021-02-28] MEDS: metroNIDAZOLE 500 MG/ISO 100ML 500 MG/100 ML BAG 100 MG IVPB (18:14)
[2021-02-28 20:00] VITALS: PULSE 76; RESP 18; O2SAT 99
[2021-02-28 21:56] VITALS: BP 134/58; PULSE 76; RESP 18; TEMP 36.8
[2021-03-01] MEDS: metroNIDAZOLE 500 MG/ISO 100ML 500 MG/100 ML BAG 100 MG IVPB ×3 (00:20→17:14)
[2021-03-01] MEDS: SODIUM CHLORIDE 0.9% IV 1,000 ML 50 ML IV CONT ×2 (00:21→20:16)
[2021-03-01 04:59] VITALS: BP 148/61; PULSE 104; RESP 18; TEMP 37.3; O2SAT 99
[2021-03-01 05:55] LABS: Alanine Aminotransferase 50 U/L (4-35); Albumin Level 2.4 g/dL (3.5-5.1); Alkaline Phosphatase 81 U/L (38-126); Anion Gap 4 mmol/L (8-16); Aspartate Amino Transferase 48 U/L (14-36); Bilirubin,Total 0.3 mg/dL (0.2-1.3); Blood Urea Nitrogen 3 mg/dL (7-17); Calcium 7.6 mg/dL (8.4-10.2); Carbon Dioxide 26 mmol/L (22-30); Chloride 99 mmol/L (98-107); Estimated CRCL calculation 61 ml/min; Estimated Glomerular Filt Rate > 60; Glucose 96 mg/dL (65-105); Potassium 3.7 mmol/L (3.4-5.0); Sodium 129 mmol/L (137-145)
--- NOTE | 2021-03-01 07:13 | WPDGIPROGNO ---
Progress Note: A&P Assessment and Plan (1) Abnormal CT scan: Code(s): R93.89 - Abnormal findings on diagnostic imaging of other specified body structures Status: Acute Assessment and Plan: CT scan with suggestion of esophageal thickening. This nonspecific we will keep her on a PPI for now. Defer investigation for awhile. (2) C. difficile colitis: Code(s): A04.72 - Enterocolitis due to Clostridium difficile, not specified as recurrent Status: Acute Assessment and Plan: Patient appears to have rather severe C difficile colitis. Intravenous Flagyl added. We will continue oral vancomycin. However with her ileus this is likely not being absorbed. Continue supportive care for now. We will need to limit diet till ileus is resolved. (3) Ileus: Code(s): K56.7 - Ileus, unspecified Status: Acute Assessment and Plan: Patient had ileus on exam yesterday. Obstructive series confirms this. NG tube now in place with decreased abdominal distention. Plan is for IV Flagyl. Oral vancomycin when she can take oral intake. Hold diet except for ice chips for now. Follow KUB and obstructive series as well as clinical exam for the immediate future. Subjective Date/time seen: 03/01/21 07:13 Patient alert a little bit more comfortable this morning. She reports her abdomen is softer and less pain. She continues to have diarrhea. NG tube in place tolerating it adequately at present. Review of Systems Review of Systems: All systems reviewed & are unremarkable except as noted in HPI and below Exam Narrative: Exam Narrative: Physical exam reveals Vital Signs to be stable. HEENT exam unremarkable. NG tube in place. Lungs are clear. Heart without murmur. Abdomen bowel sounds diminished. Not tympanic this morning. Still modestly distended. No localized tenderness. Objective Data Vital Signs Vital Signs: Vital Signs - 24 hr 02/28/21 08:31 02/28/21 14:05 02/28/21 20:00 Temperature 98.5 F Pulse Rate 80 89 76 Respiratory Rate 18 18 Blood Pressure 153/60 H Pulse Oximetry 99 99 02/28/21 21:56 03/01/21 04:59 Temperature 98.3 F 99.2 F Pulse Rate 76 104 H Respiratory Rate 18 18 Blood Pressure 134/58 L 148/61 H Pulse Oximetry 99 Intake/Output Intake/Output: Intake & Output 0702/27/21 02/28/21 03/01/21 23:59 23:59 23:59 23:59 Intake Total 3740 5550 3090 1000 Output Total 1400 2200 1500 Balance 3740 4150 890 -500 Meds/Results Medications: Active Medications Generic Name Dose Route Start Last Admin Trade Name Freq PRN Reason Stop Dose Admin Acetaminophen 650 mg 02/24/21 15:12 02/28/21 21:29 Acetaminophen 325 Mg Tablet PO 650 mg Q4H PRN Administration Pain 1-3 Hydrocodone Bitart/Acetaminophen 1 tab 02/23/21 08:55 02/28/21 00:52 Hydrocodone/Acetaminophen (*Crx) 5-325 Mg Tablet PO 1 tab Q6H PRN Administration Pain Rated 4-6 Enoxaparin Sodium 40 mg 02/24/21 09:00 02/28/21 08:31 Enoxaparin 40 Mg/0.4 Ml Syringe SUB-Q 40 mg DAILY SLICK Administration Fluticasone Propionate 1 spray 02/25/21 21:00 02/28/21 21:27 Fluticasone Propionate 0.05% Na Spr 16 Gm Btl (*Bkc) NASAL 1 spray Q12HR SLICK Administration Sodium Chloride 1,000 mls @ 50 mls/hr 02/24/21 16:00 03/01/21 00:21 Normal Saline Iv IV CONT 50 mls/hr .Q20H SLICK Administration Metronidazole 500 mg in 100 mls @ 100 mls/hr 02/28/21 17:00 03/01/21 00:20 Flagyl 500 Mg/Iso Soln 100 Ml IVPB 100 mls/hr Q8H SLICK Administration Loratadine 5 mg 02/26/21 09:00 02/28/21 08:31 Loratadine 5 Mg Tablet PO 5 mg QAM SLICK Administration Metoprolol Succinate 25 mg 02/23/21 09:00 02/28/21 08:31 Metoprolol Succinate Ext Rel 25 Mg Tabcr PO 25 mg DAILY SLICK Administration Miconazole Nitrate 1 applic 02/24/21 21:00 02/28/21 21:31 Miconazole Nitrate 2% Cream 30 Gm Tube TOPICAL 1 applic Q12HR SLICK Administration M
[2021-03-01 09:40] VITALS: PULSE 78
[2021-03-01] MEDS: MICONAZOLE NITRATE 2% CREAM 30 GM TUBE 1 APPLIC TOPICAL ×2 (09:44→20:14)
[2021-03-01] MEDS: PANTOPRAZOLE SODIUM IV 40 MG VIAL IV PUSH (09:44)
[2021-03-01] MEDS: ENOXAPARIN 40 MG/0.4 ML SYRINGE SUB-Q (09:44)
--- NOTE | 2021-03-01 12:56 | PM.IMPN ---
Progress Note: A&P Assessment and Plan (1) C. difficile colitis: Code(s): A04.72 - Enterocolitis due to Clostridium difficile, not specified as recurrent Status: Acute Assessment and Plan: C. diff toxin detected. Presented with multiple episodes of watery brown stool with marked leukocytosis and CT findings consistent with colitis. She recently completed an extended course of Augmentin for sinus infection. Appreciate GI input. She had NG placed last night due to ileus and this has helped her abdominal cramping. Continue oral vancomycin once she can tolerate (received 6 days thus far). Flagyl added 02/28. CT showed mild thickening of esophagus and stomach - continue PPI. Probiotic and Banatrol on brief hold while NPO. Analgesics and antiemetics available as needed. (2) Sepsis: Qualifiers: Sepsis type: sepsis due to unspecified organism Sepsis acute organ dysfunction status: with acute organ dysfunction Severe sepsis acute organ dysfunction type: acute liver failure Hepatic coma status: without hepatic coma Severe sepsis shock status: without septic shock Qualified Code(s): A41.9 - Sepsis, unspecified organism; R65.20 - Severe sepsis without septic shock; K72.00 - Acute and subacute hepatic failure without coma Code(s): A41.9 - Sepsis, unspecified organism Status: Acute Assessment and Plan: Evident on arrival with leukocytosis and tachycardia. She is afebrile. Lactic acid was initially elevated at 3.8 but improved down to 1.8 with IV fluid rehydration. Source of infection is C. diff colitis. Leukocytosis is resolved. Abx as above. Continue gentle IV hydration for now. Monitor electrolytes, leukocytosis, vital signs and urine output. Blood cultures are negative. (3) Acute hyponatremia: Code(s): E87.1 - Hypo-osmolality and hyponatremia Status: Acute Assessment and Plan: Secondary to acute dehydration and continued diarrhea. FENa is 0.2%. Sodium 129 today. Continue IV fluids; sodium chloride 50 ml/hr Previous provider discussed case with nephrology. Received 1 amp bicarb 02/24. She is at low risk for overcorrection given continued diarrhea. Continue to monitor serum sodium daily. (4) Dehydration: Code(s): E86.0 - Dehydration Status: Acute Assessment and Plan: Presented with acute dehydration secondary to persistent diarrhea. Continue IV fluids as described above Monitor electrolytes closely Monitor intake and output (5) Elevated liver enzymes: Code(s): R74.8 - Abnormal levels of other serum enzymes Status: Acute Assessment and Plan: Likely due to acute infection. Liver ultrasound without acute findings with incidental finding of 2 cm cyst. LFTs fluctuating but improving/stable. Monitor LFTs. Stable. Statin is on hold. Follow up with PCP to monitor incidental liver cyst (6) Hypertension: Code(s): I10 - Essential (primary) hypertension Status: Chronic Assessment and Plan: BP reviewed and stable, last 148/61. Metoprolol 25mg PO daily is held while NPO. Monitor BP and adjust treatment as needed. IV metoprolol or hydralazine can be added if BPs rise. (7) Hypokalemia due to excessive gastrointestinal loss of potassium: Code(s): E87.6 - Hypokalemia Status: Acute Assessment and Plan: Secondary to GI losses. Potassium 3.7 today. Continue to monitor. (8) Superficial thrombophlebitis of arm: Code(s): I80.8 - Phlebitis and thrombophlebitis of other sites Status: Acute Assessment and Plan: Venous doppler shows thrombus in left cephalic vein (s
[2021-03-01 14:00] VITALS: BP 154/49; PULSE 100; RESP 18; TEMP 36.5; O2SAT 97
[2021-03-01] MEDS: PHENOL/SOD PHENO SPRAY CHERRY (*BKC) 1 SPRAY MUCOUS MEM (17:14)
[2021-03-01] MEDS: FLUTICASONE PROPIONATE 0.05% NA SPR 16 GM BTL (*BKC) 1 SPRAY NASAL (20:14)
[2021-03-01 21:05] VITALS: BP 148/59; PULSE 102; RESP 18; TEMP 36.1; O2SAT 97
[2021-03-02] MEDS: metroNIDAZOLE 500 MG/ISO 100ML 500 MG/100 ML BAG 100 MG IVPB ×4 (00:18→23:51)
[2021-03-02] MEDS: PHENOL/SOD PHENO SPRAY CHERRY (*BKC) 1 SPRAY MUCOUS MEM ×2 (02:28→21:49)
[2021-03-02 05:50] LABS: Hematocrit 33.6 % (37.0-47.0); Hemoglobin 10.9 g/dL (12.0-15.0); Mean Corpuscular HGB Conc 32.4 g/dl (32-36); Mean Corpuscular Volume 92.6 fl (80-100); Mean Platelet Volume 8.5 fl (7.4-10.4); Platelet Count Result 303 k/mm3 (150-375); Red Blood Count 3.63 M/mm3 (4.2-5.4); Red Cell Distribution Width 13.6 % (11.5-14.5); White Blood Count 14.7 K/mm3 (4.5-10.0)
[2021-03-02 06:00] VITALS: BP 142/50; PULSE 108; RESP 18; TEMP 36.1; O2SAT 99
[2021-03-02 06:08] LABS: Anion Gap 6 mmol/L (8-16); Blood Urea Nitrogen 6 mg/dL (7-17); Calcium 7.5 mg/dL (8.4-10.2); Carbon Dioxide 23 mmol/L (22-30); Chloride 101 mmol/L (98-107); Estimated CRCL calculation 53 ml/min; Estimated Glomerular Filt Rate > 60; Glucose 88 mg/dL (65-105); Magnesium 1.9 mg/dL (1.6-2.3); Potassium 3.4 mmol/L (3.4-5.0); Sodium 130 mmol/L (137-145)
[2021-03-02] MEDS: FLUTICASONE PROPIONATE 0.05% NA SPR 16 GM BTL (*BKC) 1 SPRAY NASAL ×2 (09:51→21:49)
[2021-03-02] MEDS: ENOXAPARIN 40 MG/0.4 ML SYRINGE SUB-Q (09:51)
[2021-03-02] MEDS: PANTOPRAZOLE SODIUM IV 40 MG VIAL IV PUSH (09:52)
[2021-03-02] MEDS: MICONAZOLE NITRATE 2% CREAM 30 GM TUBE 1 APPLIC TOPICAL ×2 (09:52→21:50)
--- NOTE | 2021-03-02 11:24 | PCOTNOTE ---
Attempted to see patient twice this am, however patient declined both times. First attempt, patient sleeping upon entering stated she was too tired. Second attempt, patient stated she just wasn't feeling well. Pt reported My diarrhea is back.
--- NOTE | 2021-03-02 12:49 | WPDGIPROGNO ---
Progress Note: A&P Assessment and Plan (1) Ileus: Code(s): K56.7 - Ileus, unspecified Status: Acute Assessment and Plan: Ileus related to C difficile colitis. Not totally resolved at this point. She is much less distended. Still not passing much stool. Plan to leave NG tube in 1 more day. for decompression. Follow obstructive series. (2) C. difficile colitis: Code(s): A04.72 - Enterocolitis due to Clostridium difficile, not specified as recurrent Status: Acute Assessment and Plan: Patient appears to have rather significant C difficile colitis. Plan for intravenous Flagyl to continue. Oral vancomycin when she is able to take oral medications. Defer diet until bowel function returns. (3) Elevated liver enzymes: Code(s): R74.8 - Abnormal levels of other serum enzymes Status: Acute Assessment and Plan: Elevated LFTs are likely reactive from significant sepsis admission. Would follow and monitor conservatively. (4) Abnormal CT scan: Code(s): R93.89 - Abnormal findings on diagnostic imaging of other specified body structures Status: Acute Assessment and Plan: Thickened distal esophagus suggest possible esophagitis. Patient has been placed on proton pump inhibitor therapy for the immediate future. I would defer any investigation For now. Subjective Date/time seen: 03/02/21 12:49 patient reports pain from the NG tube. She states stools have some softness in texture to in but only 1 stool today. Her abdominal distention continues to feel much improved. Review of Systems Review of Systems: All systems reviewed & are unremarkable except as noted in HPI and below Exam Narrative: Exam Narrative: Physical exam reveals patient be alert. Vital signs stable. HEENT exam reveals NG tube in place. Lungs are clear. Abdomen bowel sounds are difficult to appreciate. Abdomen is softer mild diffuse tenderness appreciated. Objective Data Vital Signs Vital Signs: Vital Signs - 24 hr 03/01/21 14:00 03/01/21 21:05 03/02/21 06:00 Temperature 97.7 F 97.0 F L 97.0 F L Pulse Rate 100 102 H 108 H Respiratory Rate 18 18 18 Blood Pressure 154/49 H 148/59 H 142/50 H Pulse Oximetry 97 97 99 Intake/Output Intake/Output: Intake & Output 02/27/21 02/28/21 03/01/21 03/02/21 23:59 23:59 23:59 23:59 Intake Total 5550 3090 2400 300 Output Total 1400 2200 2350 400 Balance 4150 890 50 -100 Meds/Results Medications: Active Medications Generic Name Dose Route Start Last Admin Trade Name Freq PRN Reason Stop Dose Admin Hydrocodone Bitart/Acetaminophen 1 tab 02/23/21 08:55 02/28/21 00:52 Hydrocodone/Acetaminophen (*Crx) 5-325 Mg Tablet PO 1 tab Q6H PRN Administration Pain Rated 4-6 Enoxaparin Sodium 40 mg 02/24/21 09:00 03/02/21 09:51 Enoxaparin 40 Mg/0.4 Ml Syringe SUB-Q 40 mg DAILY [facility] Administration Fluticasone Propionate 1 spray 02/25/21 21:00 03/02/21 09:51 Fluticasone Propionate 0.05% Na Spr 16 Gm Btl (*Bkc) NASAL 1 spray Q12HR [facility] Administration Sodium Chloride 1,000 mls @ 75 mls/hr 02/24/21 16:00 03/02/21 12:07 Normal Saline Iv IV CONT 75 mls/hr .[id number] [facility] Infusion Metronidazole 500 mg in 100 mls @ 100 mls/hr 02/28/21 17:00 03/02/21 10:52 Flagyl 500 Mg/Iso Soln 100 Ml IVPB Infused Q8H [facility] Infusion Acetaminophen 1,000 mg in 100 mls @ 400 mls/hr 03/02/21 13:00 Ofirmev 1,000 Mg Ivpb IVPB 03/03/21 13:01 Q6H PRN Pain or Fever Loratadine 5 mg 02/26/21 09:00 03/01/21 09:39 Loratadine 5 Mg Tablet PO Not Given QAM [facility] Metoprolol Succinate 25 mg 02/23/21 09:00 03/01/21 09:40 Metoprolol Succinate Ext Rel 25 Mg Tabcr PO Not Given DAILY [facility] Miconazole Nitrate 1 applic 02/24/21 21:00 03/02/21 09:52 Miconazole Nitrate 2% Cream 30 Gm Tube TOPICAL 1 applic Q12HR [facility] Administration Morphine Sulfate 2 mg 03/01/21 11:51 Morphine Sulfate
[2021-03-02 14:00] VITALS: BP 151/57; PULSE 102; RESP 18; TEMP 36.4; O2SAT 99
--- NOTE | 2021-03-02 15:28 | PM.IMPN ---
Progress Note: A&P Assessment and Plan (1) C. difficile colitis: Code(s): A04.72 - Enterocolitis due to Clostridium difficile, not specified as recurrent Status: Acute Assessment and Plan: C. diff toxin detected. Presented with multiple episodes of watery brown stool with marked leukocytosis and CT findings consistent with colitis. She recently completed an extended course of Augmentin for sinus infection. Appreciate GI input. She had NG placed 02/28 due to ileus - improved. GI recommends NG tube one more day. Tylenol and Chloraseptic throat spray for NG tube throat discomfort. Continue oral vancomycin once she can tolerate (received 6 days thus far). Flagyl added 02/28. CT showed mild thickening of esophagus and stomach - continue PPI. Probiotic and Banatrol on brief hold while NPO. Analgesics and antiemetics available as needed. (2) Sepsis: Qualifiers: Sepsis type: sepsis due to unspecified organism Sepsis acute organ dysfunction status: with acute organ dysfunction Severe sepsis acute organ dysfunction type: acute liver failure Hepatic coma status: without hepatic coma Severe sepsis shock status: without septic shock Qualified Code(s): A41.9 - Sepsis, unspecified organism; R65.20 - Severe sepsis without septic shock; K72.00 - Acute and subacute hepatic failure without coma Code(s): A41.9 - Sepsis, unspecified organism Status: Acute Assessment and Plan: Evident on arrival with leukocytosis and tachycardia. She is afebrile. Lactic acid was initially elevated at 3.8 but improved down to 1.8 with IV fluid rehydration. Source of infection is C. diff colitis. Leukocytosis noted today. Abx as above. Continue gentle IV hydration for now. Monitor electrolytes, leukocytosis, vital signs and urine output. Blood cultures are negative. (3) Acute hyponatremia: Code(s): E87.1 - Hypo-osmolality and hyponatremia Status: Acute Assessment and Plan: Secondary to acute dehydration and continued diarrhea. FENa is 0.2%. Sodium 130 today. Continue IV fluids; sodium chloride 50 ml/hr Previous provider discussed case with nephrology. Received 1 amp bicarb 02/24. She is at low risk for overcorrection given continued diarrhea. Continue to monitor serum sodium daily. (4) Dehydration: Code(s): E86.0 - Dehydration Status: Acute Assessment and Plan: Presented with acute dehydration secondary to persistent diarrhea. Continue IV fluids as described above Monitor electrolytes closely Monitor intake and output (5) Elevated liver enzymes: Code(s): R74.8 - Abnormal levels of other serum enzymes Status: Acute Assessment and Plan: Likely due to acute infection. Liver ultrasound without acute findings with incidental finding of 2 cm cyst. LFTs fluctuating but improving/stable. Monitor LFTs. Stable. Statin is on hold. Follow up with PCP to monitor incidental liver cyst (6) Hypertension: Code(s): I10 - Essential (primary) hypertension Status: Chronic Assessment and Plan: BP reviewed and stable. A bit elevated above goal may be related to pain, last 151/57. Metoprolol 25mg PO daily is held while NPO. Monitor BP and adjust treatment as needed. IV metoprolol or hydralazine can be added if BPs rise. (7) Hypokalemia due to excessive gastrointestinal loss of potassium: Code(s): E87.6 - Hypokalemia Status: Acute Assessment and Plan: Secondary to GI losses. Potassium 3.4 today. Supplement IV as she is NPO. Continue to monitor and replace as needed. (8) Superficial thrombophlebitis of arm:
[2021-03-02] MEDS: SODIUM CHLORIDE 0.9% IV 1,000 ML 75 ML IV CONT ×2 (17:10→23:51)
[2021-03-02 22:00] VITALS: BP 139/69; PULSE 97; RESP 20; TEMP 36.2; O2SAT 95
[2021-03-02] MEDS: VANCOMYCIN ORAL 125 MG/2.5 ML SYRUP PO (23:51)
[2021-03-03] MEDS: VANCOMYCIN ORAL 125 MG/2.5 ML SYRUP PO ×3 (05:22→17:46)
[2021-03-03 05:53] LABS: Basophils Absolute Auto 0.1 K/mm3 (0.0-0.1); Basophils Percent Auto 0.4 % (0.2-1.2); Eosinophils Absolute Auto 0.3 K/mm3 (0-0.3); Hematocrit 31.7 % (37.0-47.0); Hemoglobin 10.4 g/dL (12.0-15.0); Immature Granulocyte Absolute 0.18 K/mm3 (0.00-0.031); Immature Granulocyte Percent A 1.3 % (0-0.5); Lymphocytes Absolute Auto 0.92 K/mm3 (0.9-3.2); Lymphocytes Percent Auto 6.5 % (18.3-44.2); Mean Corpuscular HGB Conc 32.8 g/dl (32-36); Mean Corpuscular Hemoglobin 29.9 pg (26-34); Mean Corpuscular Volume 91.1 fl (80-100); Mean Platelet Volume 8.4 fl (7.4-10.4); Monocytes Absolute Auto 0.4 K/mm3 (0.1-0.6); Monocytes Percent Auto 2.5 % (2.6-8.5); Neutrophils Absolute Auto 12.4 K/mm3 (1.3-6.7); Neutrophils Percent Auto 87.3 % (45.5-73.1); Platelet Count Result 366 k/mm3 (150-375); Red Blood Count 3.48 M/mm3 (4.2-5.4); Red Cell Distribution Width 13.3 % (11.5-14.5); White Blood Count 14.2 K/mm3 (4.5-10.0)
[2021-03-03 06:00] VITALS: BP 135/51; PULSE 108; RESP 18; TEMP 36.4; O2SAT 95
[2021-03-03 06:03] LABS: Alanine Aminotransferase 36 U/L (4-35); Albumin Level 2.2 g/dL (3.5-5.1); Alkaline Phosphatase 70 U/L (38-126); Anion Gap 7 mmol/L (8-16); Aspartate Amino Transferase 35 U/L (14-36); Bilirubin,Total 0.4 mg/dL (0.2-1.3); Blood Urea Nitrogen 5 mg/dL (7-17); Calcium 7.5 mg/dL (8.4-10.2); Carbon Dioxide 22 mmol/L (22-30); Chloride 98 mmol/L (98-107); Estimated CRCL calculation 61 ml/min; Estimated Glomerular Filt Rate > 60; Glucose 86 mg/dL (65-110); Magnesium 1.8 mg/dL (1.6-2.3); Potassium 3.4 mmol/L (3.4-5.0); Sodium 127 mmol/L (137-145)
[2021-03-03] MEDS: ONDANSETRON INJ 4 MG/2 ML VIAL IV PUSH (06:08)
--- NOTE | 2021-03-03 08:27 | WPDGIPROGNO ---
Progress Note: A&P Assessment and Plan (1) C. difficile colitis: Code(s): A04.72 - Enterocolitis due to Clostridium difficile, not specified as recurrent Status: Acute Assessment and Plan: Patient appears to have ongoing colitis. White count 14.2. She is mild diffuse abdominal tenderness. However no longer distended. I am not certain the ileus has resolved. Plan to clamp the NG tube before removing. Continue IV antibiotics with Flagyl. Add Vanco when we can restart diet eventually. IV fluids and supportive care for now. (2) Ileus: Code(s): K56.7 - Ileus, unspecified Status: Acute Assessment and Plan: patient with colitis causing her ileus. Ileus may slowly be resolving. Plan to clamp NG tube present. Will remove when we are certain her bowel function is resuming. Subjective Date/time seen: 03/03/21 08:28 Patient is alert this morning. Reports mild diffuse abdominal discomfort. Some oozing of stool continues. Review of Systems Review of Systems: All systems reviewed & are unremarkable except as noted in HPI and below Exam Narrative: Exam Narrative: Physical exam reveals her to be alert. Vital signs stable. She is anicteric. Lungs are clear. NG tube in place. Heart is without murmur abdomen abdomen is soft. Flat bowel sounds are diminished. Mild diffuse tenderness evident. No guarding or rebound. Extremities without clubbing or cyanosis. Objective Data Vital Signs Vital Signs: Vital Signs - 24 hr 03/02/21 14:00 03/02/21 22:00 03/03/21 06:00 Temperature 97.6 F 97.1 F L 97.5 F L Pulse Rate 102 H 97 108 H Respiratory Rate 18 20 18 Blood Pressure 151/57 H 139/69 135/51 L Pulse Oximetry 99 95 95 Intake/Output Intake/Output: Intake & Output 02/28/21 03/01/21 03/02/21 03/03/21 23:59 23:59 23:59 23:59 Intake Total 3090 2400 2900 300 Output Total 2200 2350 750 500 Balance 516 72 2187 -200 Meds/Results Medications: Active Medications Generic Name Dose Route Start Last Admin Trade Name Freq PRN Reason Stop Dose Admin Hydrocodone Bitart/Acetaminophen 1 tab 02/23/21 08:55 02/28/21 00:52 Hydrocodone/Acetaminophen (*Crx) 5-325 Mg Tablet PO 1 tab Q6H PRN Administration Pain Rated 4-6 Enoxaparin Sodium 40 mg 02/24/21 09:00 03/02/21 09:51 Enoxaparin 40 Mg/0.4 Ml Syringe SUB-Q 40 mg DAILY [facility] Administration Fluticasone Propionate 1 spray 02/25/21 21:00 03/02/21 21:49 Fluticasone Propionate 0.05% Na Spr 16 Gm Btl (*Bkc) NASAL 1 spray Q12HR [facility] Administration Hydralazine HCl 10 mg 03/02/21 15:41 Hydralazine Hcl 20 Mg/Ml Vial IV PUSH Q8H PRN Blood Pressure - High Sodium Chloride 1,000 mls @ 75 mls/hr 02/24/21 16:00 03/02/21 23:51 Normal Saline Iv IV CONT 75 mls/hr .[id number] [facility] Administration Metronidazole 500 mg in 100 mls @ 100 mls/hr 02/28/21 17:00 03/03/21 00:51 Flagyl 500 Mg/Iso Soln 100 Ml IVPB Infused Q8H [facility] Infusion Acetaminophen 1,000 mg in 100 mls @ 400 mls/hr 03/02/21 13:00 Ofirmev 1,000 Mg Ivpb IVPB 03/03/21 13:01 Q6H PRN Pain or Fever Loratadine 5 mg 02/26/21 09:00 03/01/21 09:39 Loratadine 5 Mg Tablet PO Not Given QAM [facility] Metoprolol Succinate 25 mg 02/23/21 09:00 03/01/21 09:40 Metoprolol Succinate Ext Rel 25 Mg Tabcr PO Not Given DAILY [facility] Miconazole Nitrate 1 applic 02/24/21 21:00 03/02/21 21:50 Miconazole Nitrate 2% Cream 30 Gm Tube TOPICAL 1 applic Q12HR [facility] Administration Morphine Sulfate 2 mg 03/01/21 11:51 Morphine Sulfate (*Crx) 2 Mg/Ml Inj IV PUSH Q6HR PRN Breakthrough Pain Multivitamins/Calcium 1 tablet 02/23/21 09:00 03/01/21 09:40 Therapeutic Multivitamins/Minerals Tab (*Bkc) PO Not Given DAILY [facility] Ondansetron HCl 4 mg 02/22/21 22:06 03/03/21 06:08 Ondansetron Inj 4 Mg/2 Ml Vial IV PUSH 4 mg Q4H PRN Administration Nausea Pantoprazole Sodium 40 mg 03/01/21 09
[2021-03-03] MEDS: SODIUM CHLORIDE 0.9% IV 1,000 ML 75 ML IV CONT (09:25)
[2021-03-03] MEDS: metroNIDAZOLE 500 MG/ISO 100ML 500 MG/100 ML BAG 100 MG IVPB ×2 (09:26→17:46)
[2021-03-03] MEDS: ENOXAPARIN 40 MG/0.4 ML SYRINGE SUB-Q (09:28)
[2021-03-03] MEDS: FLUTICASONE PROPIONATE 0.05% NA SPR 16 GM BTL (*BKC) 1 SPRAY NASAL ×2 (09:28→20:07)
[2021-03-03] MEDS: MICONAZOLE NITRATE 2% CREAM 30 GM TUBE 1 APPLIC TOPICAL ×2 (09:29→20:07)
[2021-03-03] MEDS: PANTOPRAZOLE SODIUM IV 40 MG VIAL IV PUSH (09:29)
--- NOTE | 2021-03-03 09:51 | PM.IMPN ---
Progress Note: A&P Assessment and Plan (1) C. difficile colitis: Code(s): A04.72 - Enterocolitis due to Clostridium difficile, not specified as recurrent Status: Acute Assessment and Plan: C. diff toxin detected. Presented with multiple episodes of watery brown stool with marked leukocytosis and CT findings consistent with colitis. She recently completed an extended course of Augmentin for sinus infection. Appreciate GI input. She had NG placed 02/28 due to ileus. GI recommends trial of clamping NG tube this morning prior to removing. Tylenol and Chloraseptic throat spray for NG tube throat discomfort. Continue oral vancomycin once she can tolerate (received 6 days thus far). Flagyl added 02/28, continue. CT showed mild thickening of esophagus and stomach - continue PPI. Probiotic and Banatrol on brief hold while NPO. Analgesics and antiemetics available as needed. (2) Sepsis: Qualifiers: Sepsis type: sepsis due to unspecified organism Sepsis acute organ dysfunction status: with acute organ dysfunction Severe sepsis acute organ dysfunction type: acute liver failure Hepatic coma status: without hepatic coma Severe sepsis shock status: without septic shock Qualified Code(s): A41.9 - Sepsis, unspecified organism; R65.20 - Severe sepsis without septic shock; K72.00 - Acute and subacute hepatic failure without coma Code(s): A41.9 - Sepsis, unspecified organism Status: Acute Assessment and Plan: Evident on arrival with leukocytosis and tachycardia. She is afebrile. Lactic acid was initially elevated at 3.8 but improved down to 1.8 with IV fluid rehydration. Source of infection is C. diff colitis. Leukocytosis noted today. Abx as above. Continue gentle IV hydration for now. Monitor electrolytes, leukocytosis, vital signs and urine output. Blood cultures are negative. (3) Acute hyponatremia: Code(s): E87.1 - Hypo-osmolality and hyponatremia Status: Acute Assessment and Plan: Secondary to acute dehydration and continued diarrhea. FENa is 0.2%. Sodium fluctuating but low/stable. Continue IV fluids; sodium chloride 50 ml/hr Previous provider discussed case with nephrology. Received 1 amp bicarb 02/24. She is at low risk for overcorrection given continued diarrhea. Continue to monitor serum sodium daily. (4) Dehydration: Code(s): E86.0 - Dehydration Status: Acute Assessment and Plan: Presented with acute dehydration secondary to persistent diarrhea. Continue IV fluids as described above Monitor electrolytes closely. Monitor intake and output. (5) Elevated liver enzymes: Code(s): R74.8 - Abnormal levels of other serum enzymes Status: Acute Assessment and Plan: Resolved. Suspect related to acute infection. Liver ultrasound without acute findings with incidental finding of 2 cm cyst. LFTs normal this morning. Statin is on hold. Follow up with PCP to monitor incidental liver cyst (6) Hypertension: Code(s): I10 - Essential (primary) hypertension Status: Chronic Assessment and Plan: BP reviewed and stable. Intermittent elevations above goal may be related to pain, but stable last 135/51. Metoprolol 25mg PO daily is held while NPO. Monitor BP and adjust treatment as needed. IV metoprolol or hydralazine can be added if BPs rise. (7) Hypokalemia due to excessive gastrointestinal loss of potassium: Code(s): E87.6 - Hypokalemia Status: Acute Assessment and Plan: Secondary to GI losses. Potassium 3.4 today. Mg 1.8 Supplement IV as she is NPO. Continue to monitor and replace as needed.
[2021-03-03] MEDS: MAGNESIUM SULF 2 GM/WATER 50ML 2 GM/50 ML BAG IVPB (10:52)
[2021-03-03 11:30] VITALS: BP 105/47; PULSE 108
[2021-03-03 11:35] VITALS: BP 129/51; PULSE 95
[2021-03-03 14:00] VITALS: BP 149/54; PULSE 101; RESP 16; TEMP 36.1; O2SAT 94
[2021-03-03 22:00] VITALS: BP 148/58; PULSE 95; RESP 18; TEMP 36.3; O2SAT 98
[2021-03-04] MEDS: VANCOMYCIN ORAL 125 MG/2.5 ML SYRUP PO ×5 (00:01→23:48)
[2021-03-04] MEDS: metroNIDAZOLE 500 MG/ISO 100ML 500 MG/100 ML BAG 100 MG IVPB ×4 (00:01→23:47)
[2021-03-04] MEDS: SODIUM CHLORIDE 0.9% IV 1,000 ML 75 ML IV CONT (00:02)
[2021-03-04 05:53] LABS: Basophils Absolute Auto 0.1 K/mm3 (0.0-0.1); Basophils Percent Auto 0.5 % (0.2-1.2); Eosinophils Absolute Auto 0.5 K/mm3 (0-0.3); Eosinophils Percent Auto 4.2 % (0-4.4); Hematocrit 33.7 % (37.0-47.0); Hemoglobin 10.8 g/dL (12.0-15.0); Immature Granulocyte Absolute 0.09 K/mm3 (0.00-0.031); Immature Granulocyte Percent A 0.8 % (0-0.5); Lymphocytes Absolute Auto 0.86 K/mm3 (0.9-3.2); Lymphocytes Percent Auto 7.8 % (18.3-44.2); Mean Corpuscular Hemoglobin 30.2 pg (26-34); Mean Corpuscular Volume 94.1 fl (80-100); Mean Platelet Volume 8.1 fl (7.4-10.4); Monocytes Absolute Auto 0.4 K/mm3 (0.1-0.6); Monocytes Percent Auto 3.8 % (2.6-8.5); Neutrophils Absolute Auto 9.2 K/mm3 (1.3-6.7); Neutrophils Percent Auto 82.9 % (45.5-73.1); Platelet Count Result 386 k/mm3 (150-375); Red Blood Count 3.58 M/mm3 (4.2-5.4); Red Cell Distribution Width 13.3 % (11.5-14.5); White Blood Count 11.1 K/mm3 (4.5-10.0)
[2021-03-04 06:00] VITALS: BP 139/56; PULSE 60; RESP 18; TEMP 36.4; O2SAT 95
[2021-03-04 06:07] LABS: Anion Gap 5 mmol/L (8-16); Blood Urea Nitrogen 3 mg/dL (7-17); Calcium 7.5 mg/dL (8.4-10.2); Carbon Dioxide 23 mmol/L (22-30); Chloride 102 mmol/L (98-107); Estimated CRCL calculation 61 ml/min; Estimated Glomerular Filt Rate > 60; Glucose 85 mg/dL (65-110); Potassium 3.4 mmol/L (3.4-5.0); Sodium 130 mmol/L (137-145)
--- NOTE | 2021-03-04 07:14 | WPDGIPROGNO ---
Progress Note: A&P Assessment and Plan (1) Ileus: Code(s): K56.7 - Ileus, unspecified Status: Acute Assessment and Plan: Ileus resolving. Bowel sounds are active today. Plan to discontinue NG tube. Slowly advance diet. But limit to liquids today. We may consider getting her out of bed. (2) C. difficile colitis: Code(s): A04.72 - Enterocolitis due to Clostridium difficile, not specified as recurrent Status: Acute Assessment and Plan: C difficile infection appears to be causing the colitis. Plan to continue IV Flagyl. Restart oral vancomycin. Subjective Date/time seen: 03/04/21 07:14 Patient alert this morning complains of NG tube discomfort. Review of Systems Review of Systems: All systems reviewed & are unremarkable except as noted in HPI and below Exam Narrative: Exam Narrative: Alert. NG tube clamped. Lungs are clear. Heart without murmur. Abdomen with only mild distention. Bowel sounds are present. Mild diffuse tender. Less tender today compared to yesterday. Objective Data Vital Signs Vital Signs: Vital Signs - 24 hr 03/03/21 11:30 03/03/21 11:35 03/03/21 14:00 Temperature 97.0 F L Pulse Rate 108 H 95 101 H Respiratory Rate 16 Blood Pressure 105/47 L 129/51 L 149/54 H Pulse Oximetry 94 03/03/21 22:00 03/04/21 06:00 Temperature 97.3 F L 97.5 F L Pulse Rate 95 60 Respiratory Rate 18 18 Blood Pressure 148/58 H 139/56 L Pulse Oximetry 98 95 Intake/Output Intake/Output: Intake & Output 03/01/21 03/02/21 03/03/21 03/04/21 23:59 23:59 23:59 23:59 Intake Total 2400 2900 2550 300 Output Total 2350 442 905 8427 Balance 50 2150 2050 -1500 Meds/Results Medications: Active Medications Generic Name Dose Route Start Last Admin Trade Name Freq PRN Reason Stop Dose Admin Hydrocodone Bitart/Acetaminophen 1 tab 02/23/21 08:55 02/28/21 00:52 Hydrocodone/Acetaminophen (*Crx) 5-325 Mg Tablet PO 1 tab Q6H PRN Administration Pain Rated 4-6 Enoxaparin Sodium 40 mg 02/24/21 09:00 03/03/21 09:28 Enoxaparin 40 Mg/0.4 Ml Syringe SUB-Q 40 mg DAILY [facility] Administration Fluticasone Propionate 1 spray 02/25/21 21:00 03/03/21 20:07 Fluticasone Propionate 0.05% Na Spr 16 Gm Btl (*Bkc) NASAL 1 spray Q12HR [facility] Administration Hydralazine HCl 10 mg 03/02/21 15:41 Hydralazine Hcl 20 Mg/Ml Vial IV PUSH Q8H PRN Blood Pressure - High Sodium Chloride 1,000 mls @ 75 mls/hr 02/24/21 16:00 03/04/21 00:02 Normal Saline Iv IV CONT 75 mls/hr .[id number] [facility] Administration Metronidazole 500 mg in 100 mls @ 100 mls/hr 02/28/21 17:00 03/04/21 01:01 Flagyl 500 Mg/Iso Soln 100 Ml IVPB Infused Q8H [facility] Infusion Loratadine 5 mg 02/26/21 09:00 03/01/21 09:39 Loratadine 5 Mg Tablet PO Not Given QAM [facility] Metoprolol Succinate 25 mg 02/23/21 09:00 03/01/21 09:40 Metoprolol Succinate Ext Rel 25 Mg Tabcr PO Not Given DAILY [facility] Miconazole Nitrate 1 applic 02/24/21 21:00 03/03/21 20:07 Miconazole Nitrate 2% Cream 30 Gm Tube TOPICAL 1 applic Q12HR [facility] Administration Morphine Sulfate 2 mg 03/01/21 11:51 Morphine Sulfate (*Crx) 2 Mg/Ml Inj IV PUSH Q6HR PRN Breakthrough Pain Multivitamins/Calcium 1 tablet 02/23/21 09:00 03/01/21 09:40 Therapeutic Multivitamins/Minerals Tab (*Bkc) PO Not Given DAILY [facility] Ondansetron HCl 4 mg 02/22/21 22:06 03/03/21 06:08 Ondansetron Inj 4 Mg/2 Ml Vial IV PUSH 4 mg Q4H PRN Administration Nausea Pantoprazole Sodium 40 mg 03/01/21 09:00 03/03/21 09:29 Pantoprazole Sodium Iv 40 Mg Vial IV PUSH 40 mg QAM [facility] Administration Phenol 1 spray 03/01/21 12:56 03/02/21 21:49 Phenol/Sod Pheno [place] (*Bkc) MUCOUS MEM 1 spray PRN PRN Administration Sore Throat Potassium Chloride 20 meq 02/25/21 08:00 03/01/21 09:39 Potassium Chloride 20 Meq Tablet.Er PO Not Given BIDWM [facility] Sa
[2021-03-04] MEDS: ENOXAPARIN 40 MG/0.4 ML SYRINGE SUB-Q (08:20)
[2021-03-04] MEDS: POTASSIUM CHLORIDE 20 MEQ PACKET (FOR LIQUID) 40 MEQ PO (08:20)
[2021-03-04] MEDS: MICONAZOLE NITRATE 2% CREAM 30 GM TUBE 1 APPLIC TOPICAL ×2 (08:20→20:33)
[2021-03-04] MEDS: FLUTICASONE PROPIONATE 0.05% NA SPR 16 GM BTL (*BKC) 1 SPRAY NASAL ×2 (08:20→20:34)
[2021-03-04] MEDS: PANTOPRAZOLE SODIUM IV 40 MG VIAL IV PUSH (08:21)
[2021-03-04 14:00] VITALS: BP 142/52; PULSE 101; RESP 22; TEMP 36.6; O2SAT 95
--- NOTE | 2021-03-04 14:43 | PM.IMPN ---
Progress Note: A&P Assessment and Plan (1) C. difficile colitis: Code(s): A04.72 - Enterocolitis due to Clostridium difficile, not specified as recurrent Status: Acute Assessment and Plan: C. diff toxin detected. Presented with multiple episodes of watery brown stool with marked leukocytosis and CT findings consistent with colitis. She recently completed an extended course of Augmentin for sinus infection. Appreciate GI input. She had NG placed 02/28 due to ileus, clamped 03/03, removed today per GI recommendations. Tylenol and Chloraseptic throat spray for NG tube throat discomfort. Continue oral vancomycin (day 7). Flagyl added 02/28 (day 4), continue. CT showed mild thickening of esophagus and stomach - continue PPI. Probiotic and Banatrol on brief hold while NPO/clear liquids - hopeful to resume tomorrow if she can advance to soft foods. Analgesics and antiemetics available as needed. (2) Sepsis: Qualifiers: Hepatic coma status: without hepatic coma Sepsis acute organ dysfunction status: with acute organ dysfunction Sepsis type: sepsis due to unspecified organism Severe sepsis acute organ dysfunction type: acute liver failure Severe sepsis shock status: without septic shock Qualified Code(s): A41.9 - Sepsis, unspecified organism; R65.20 - Severe sepsis without septic shock; K72.00 - Acute and subacute hepatic failure without coma Code(s): A41.9 - Sepsis, unspecified organism Status: Acute Assessment and Plan: Evident on arrival with leukocytosis and tachycardia. She is afebrile. Lactic acid was initially elevated at 3.8 but improved down to 1.8 with IV fluid rehydration. Source of infection is C. diff colitis. Leukocytosis improved today. Abx as above. IV fluids stopped today. Monitor electrolytes, leukocytosis, vital signs and urine output. Blood cultures are negative. (3) Acute hyponatremia: Code(s): E87.1 - Hypo-osmolality and hyponatremia Status: Acute Assessment and Plan: Secondary to acute dehydration and continued diarrhea. FENa is 0.2%. Sodium fluctuating but low/stable 130. Previous provider discussed case with nephrology. Received 1 amp bicarb 02/24. She is at low risk for overcorrection given continued diarrhea. Continue to monitor serum sodium daily. (4) Dehydration: Code(s): E86.0 - Dehydration Status: Acute Assessment and Plan: Presented with acute dehydration secondary to persistent diarrhea. Adequate intake of oral fluids today - stop IV fluids. Monitor electrolytes closely. Monitor intake and output. (5) Elevated liver enzymes: Code(s): R74.8 - Abnormal levels of other serum enzymes Status: Acute Assessment and Plan: Resolved. Suspect related to acute infection. Liver ultrasound without acute findings with incidental finding of 2 cm cyst. LFTs normalized. Statin is on hold. Follow up with PCP to monitor incidental liver cyst (6) Hypertension: Code(s): I10 - Essential (primary) hypertension Status: Chronic Assessment and Plan: BP reviewed and stable. Intermittent elevations above goal may be related to pain, but stable last 139/56. Resume metoprolol 25mg PO daily. Monitor BP and adjust treatment as needed. (7) Hypokalemia due to excessive gastrointestinal loss of potassium: Code(s): E87.6 - Hypokalemia Status: Acute Assessment and Plan: Secondary to GI losses. Potassium 3.4 today and replaced oral. Mg 2.0. Continue to monitor and replace as needed. (8) Superficial thrombophlebitis of arm: Code(s): I80.8 - Phlebitis and thrombophlebi
[2021-03-04 20:00] VITALS: PULSE 101; RESP 22; O2SAT 95
[2021-03-04 22:00] VITALS: BP 132/63; PULSE 108; RESP 18; TEMP 36.5; O2SAT 97
[2021-03-05 05:08] VITALS: BP 142/52; PULSE 93; RESP 16; TEMP 37; O2SAT 97
[2021-03-05 05:41] LABS: Basophils Absolute Auto 0.1 K/mm3 (0.0-0.1); Basophils Percent Auto 0.4 % (0.2-1.2); Eosinophils Absolute Auto 0.5 K/mm3 (0-0.3); Eosinophils Percent Auto 4.4 % (0-4.4); Hematocrit 31.9 % (37.0-47.0); Hemoglobin 10.3 g/dL (12.0-15.0); Immature Granulocyte Percent A 0.9 % (0-0.5); Lymphocytes Absolute Auto 0.73 K/mm3 (0.9-3.2); Lymphocytes Percent Auto 6.4 % (18.3-44.2); Mean Corpuscular HGB Conc 32.3 g/dl (32-36); Mean Corpuscular Hemoglobin 29.9 pg (26-34); Mean Corpuscular Volume 92.7 fl (80-100); Mean Platelet Volume 8.4 fl (7.4-10.4); Monocytes Absolute Auto 0.5 K/mm3 (0.1-0.6); Neutrophils Absolute Auto 9.5 K/mm3 (1.3-6.7); Neutrophils Percent Auto 83.9 % (45.5-73.1); Platelet Count Result 425 k/mm3 (150-375); Red Blood Count 3.44 M/mm3 (4.2-5.4); Red Cell Distribution Width 13.3 % (11.5-14.5); White Blood Count 11.4 K/mm3 (4.5-10.0)
[2021-03-05 05:54] LABS: Alanine Aminotransferase 24 U/L (4-35); Albumin Level 2.2 g/dL (3.5-5.1); Alkaline Phosphatase 66 U/L (38-126); Anion Gap 3 mmol/L (8-16); Aspartate Amino Transferase 32 U/L (14-36); Bilirubin,Total 0.3 mg/dL (0.2-1.3); Calcium 7.4 mg/dL (8.4-10.2); Carbon Dioxide 26 mmol/L (22-30); Chloride 100 mmol/L (98-107); Estimated CRCL calculation 72 ml/min; Estimated Glomerular Filt Rate > 60; Glucose 99 mg/dL (65-110); Magnesium 1.9 mg/dL (1.6-2.3); Potassium 3.4 mmol/L (3.4-5.0); Sodium 129 mmol/L (137-145)
[2021-03-05] MEDS: VANCOMYCIN ORAL 125 MG/2.5 ML SYRUP PO ×3 (06:07→18:43)
[2021-03-05 09:44] LABS: Blood Urea Nitrogen < 2 mg/dL (7-17)
[2021-03-05] MEDS: ENOXAPARIN 40 MG/0.4 ML SYRINGE SUB-Q (10:18)
[2021-03-05] MEDS: CHOLECALCIFEROL 1,000 UNITS TABLET 3000 UNITS PO (10:18)
[2021-03-05 10:19] VITALS: PULSE 68
[2021-03-05] MEDS: METOPROLOL SUCCINATE EXT REL 25 MG TABCR PO (10:19)
[2021-03-05] MEDS: FLUTICASONE PROPIONATE 0.05% NA SPR 16 GM BTL (*BKC) 1 SPRAY NASAL ×2 (10:19→20:16)
[2021-03-05] MEDS: LORATADINE 5 MG TABLET PO (10:19)
[2021-03-05] MEDS: metroNIDAZOLE 500 MG/ISO 100ML 500 MG/100 ML BAG 100 MG IVPB ×2 (10:19→18:42)
[2021-03-05] MEDS: SACCHAROMYCES BOULARDII 250 MG CAPSULE PO ×2 (10:20→18:43)
[2021-03-05] MEDS: MICONAZOLE NITRATE 2% CREAM 30 GM TUBE 1 APPLIC TOPICAL ×2 (10:20→20:18)
[2021-03-05] MEDS: PANTOPRAZOLE SODIUM IV 40 MG VIAL IV PUSH (10:20)
[2021-03-05 10:27] VITALS: BMI 24.9
--- NOTE | 2021-03-05 12:05 | PCNSR ---
On 03/05/21, the student, Iqra Mackey, provided care and completed [facility] documentation on this patient. I have reviewed the student's documentation and agree with the findings.
--- NOTE | 2021-03-05 12:30 | WPDGIPROGNO ---
Progress Note: A&P Assessment and Plan (1) C. difficile colitis: Code(s): A04.72 - Enterocolitis due to Clostridium difficile, not specified as recurrent Status: Acute Assessment and Plan: C difficile colitis slowly improving. Plan to advance diet. Continue IV Flagyl for now. Oral vancomycin. Add Questran to minimize diarrhea if at all possible. She should continue oral vancomycin after discharge. Anticipate she should be eating a regular diet with less frequent stools prior to discharge. (2) Abnormal CT scan: Code(s): R93.89 - Abnormal findings on diagnostic imaging of other specified body structures Status: Acute Assessment and Plan: Thick esophagus suggested on CT scan. Plan to treat for esophagitis. She has no heartburn consider EGD if symptoms develop in the future. (3) Ileus: Code(s): K56.7 - Ileus, unspecified Status: Acute Assessment and Plan: Ileus appears resolved at this point. Continue monitor closely. Likely related to significant inflammation from colitis. Subjective Date/time seen: 03/05/21 12:30 Patient reports going most the night without diarrhea. More frequent intervals without stool. She states abdominal pain is lessened. Tolerated liquid diet. Anxious to go home. Review of Systems Review of Systems: All systems reviewed & are unremarkable except as noted in HPI and below Exam Narrative: Exam Narrative: Physical exam reveals patient be alert. Vital signs are stable. HEENT exam reveals no icterus. Lungs are clear. Heart without murmur. Abdomen soft and flat. Bowel sounds are present. Mild diffuse tenderness remains. No organomegaly evident. Objective Data Vital Signs Vital Signs: Vital Signs - 24 hr 03/04/21 14:00 03/04/21 20:00 03/04/21 22:00 Temperature 97.9 F 97.7 F Pulse Rate 101 H 101 H 108 H Respiratory Rate 22 H 22 H 18 Blood Pressure 142/52 H 132/63 Pulse Oximetry 95 95 97 03/05/21 05:08 03/05/21 10:19 Temperature 98.6 F Pulse Rate 93 68 Respiratory Rate 16 Blood Pressure 142/52 H Pulse Oximetry 97 Intake/Output Intake/Output: Intake & Output 03/02/21 03/03/21 03/04/21 03/05/21 23:59 23:59 23:59 23:59 Intake Total 2900 3050 2570 500 Output Total 081 996 4611 800 Balance 2150 2550 770 -300 Meds/Results Medications: Active Medications Generic Name Dose Route Start Last Admin Trade Name Freq PRN Reason Stop Dose Admin Acetaminophen 650 mg 03/04/21 17:22 Acetaminophen 325 Mg Tablet PO Q4H PRN Pain Rated 1 - 6 or Fever Hydrocodone Bitart/Acetaminophen 1 tab 03/04/21 17:22 Hydrocodone/Acetaminophen (*Crx) 5-325 Mg Tablet PO Q6H PRN Pain Rated 7-10 Enoxaparin Sodium 40 mg 02/24/21 09:00 03/05/21 10:18 Enoxaparin 40 Mg/0.4 Ml Syringe SUB-Q 40 mg DAILY SLICK Administration Fluticasone Propionate 1 spray 02/25/21 21:00 03/05/21 10:19 Fluticasone Propionate 0.05% Na Spr 16 Gm Btl (*Bkc) NASAL 1 spray Q12HR SLICK Administration Hydralazine HCl 10 mg 03/02/21 15:41 Hydralazine Hcl 20 Mg/Ml Vial IV PUSH Q8H PRN Blood Pressure - High Metronidazole 500 mg in 100 mls @ 100 mls/hr 02/28/21 17:00 03/05/21 12:14 Flagyl 500 Mg/Iso Soln 100 Ml IVPB Infused Q8H SLICK Infusion Loratadine 5 mg 02/26/21 09:00 03/05/21 10:19 Loratadine 5 Mg Tablet PO 5 mg QAM SLICK Administration Metoprolol Succinate 25 mg 02/23/21 09:00 03/05/21 10:19 Metoprolol Succinate Ext Rel 25 Mg Tabcr PO 25 mg DAILY SLICK Administration Miconazole Nitrate 1 applic 02/24/21 21:00 03/05/21 10:20 Miconazole Nitrate 2% Cream 30 Gm Tube TOPICAL 1 applic Q12HR SLICK Administration Morphine Sulfate 2 mg 03/01/21 11:51 Morphine Sulfate (*Crx) 2 Mg/Ml Inj IV PUSH Q6HR PRN Breakthrough Pain Multivitamins/Calcium 1 tablet 02/23/21 09:00 03/01/21 09:40 Therapeutic Multivitamins/Minerals Tab (*Bkc) PO Not G
[2021-03-05 14:00] VITALS: BP 130/70; PULSE 78; RESP 16; TEMP 37.1; O2SAT 100
--- NOTE | 2021-03-05 15:03 | PM.IMPN ---
Progress Note: A&P Assessment and Plan (1) C. difficile colitis: Code(s): A04.72 - Enterocolitis due to Clostridium difficile, not specified as recurrent Status: Acute Assessment and Plan: C. diff toxin detected. Presented with multiple episodes of watery brown stool with marked leukocytosis and CT findings consistent with colitis. She recently completed an extended course of Augmentin for sinus infection. Appreciate GI input. She had NG placed 02/28 due to ileus, clamped 03/03, removed 03/04 per GI recommendations. Continue oral vancomycin (day 8). Flagyl added 02/28 (day 5), continue. CT showed mild thickening of esophagus and stomach - continue PPI. Resume probiotic and Banatrol. Advanced to regular diet. Analgesics and antiemetics available as needed. (2) Sepsis: Qualifiers: Sepsis type: sepsis due to unspecified organism Sepsis acute organ dysfunction status: with acute organ dysfunction Severe sepsis acute organ dysfunction type: acute liver failure Hepatic coma status: without hepatic coma Severe sepsis shock status: without septic shock Qualified Code(s): A41.9 - Sepsis, unspecified organism; R65.20 - Severe sepsis without septic shock; K72.00 - Acute and subacute hepatic failure without coma Code(s): A41.9 - Sepsis, unspecified organism Status: Acute Assessment and Plan: Evident on arrival with leukocytosis and tachycardia. She is afebrile. Lactic acid was initially elevated at 3.8 but improved down to 1.8 with IV fluid rehydration. Source of infection is C. diff colitis. Leukocytosis is mild. Abx as above. IV fluids stopped. Monitor electrolytes, leukocytosis, vital signs and urine output. Blood cultures are negative. (3) Acute hyponatremia: Code(s): E87.1 - Hypo-osmolality and hyponatremia Status: Acute Assessment and Plan: Secondary to acute dehydration and continued diarrhea. Sodium fluctuating but low/stable 129. Previous provider discussed case with nephrology early in the stay. Received 1 amp bicarb 02/24. She is at low risk for overcorrection given continued diarrhea. Continue to monitor serum sodium daily. (4) Dehydration: Code(s): E86.0 - Dehydration Status: Acute Assessment and Plan: Presented with acute dehydration secondary to persistent diarrhea. Encourage intake of oral fluids today - IV fluids stopped. Monitor electrolytes closely. Monitor intake and output. (5) Elevated liver enzymes: Code(s): R74.8 - Abnormal levels of other serum enzymes Status: Acute Assessment and Plan: Resolved. Suspect related to acute infection. Liver ultrasound without acute findings with incidental finding of 2 cm cyst. LFTs normalized. Statin is on hold. Follow up with PCP to monitor incidental liver cyst (6) Hypertension: Code(s): I10 - Essential (primary) hypertension Status: Chronic Assessment and Plan: BP reviewed and stable. Intermittent elevations above goal may be related to pain, but stable last 142/52. Continue metoprolol 25mg PO daily. Monitor BP and adjust treatment as needed. (7) Hypokalemia due to excessive gastrointestinal loss of potassium: Code(s): E87.6 - Hypokalemia Status: Acute Assessment and Plan: Secondary to GI losses. Potassium 3.4 today and replaced oral. Mg 2.0. Continue to monitor and replace as needed. (8) Superficial thrombophlebitis of arm: Code(s): I80.8 - Phlebitis and thrombophlebitis of other sites Status: Acute Assessment and Plan: Venous doppler shows thrombus in left cephalic vein (superficial). Cont
[2021-03-05] MEDS: POTASSIUM CHLORIDE 20 MEQ TABLET.ER PO (18:43)
[2021-03-05] MEDS: CHOLESTYRAMINE LIGHT 4 GM POWD.PACK PO (20:17)
[2021-03-05 21:51] VITALS: BP 117/50; PULSE 99; RESP 18; TEMP 36.7; O2SAT 97
[2021-03-06] MEDS: VANCOMYCIN ORAL 125 MG/2.5 ML SYRUP PO ×2 (00:07→05:14)
[2021-03-06] MEDS: metroNIDAZOLE 500 MG/ISO 100ML 500 MG/100 ML BAG 100 MG IVPB ×2 (00:08→08:34)
[2021-03-06 05:37] LABS: Hematocrit 32.8 % (37.0-47.0); Hemoglobin 10.5 g/dL (12.0-15.0); Mean Corpuscular Hemoglobin 29.9 pg (26-34); Mean Corpuscular Volume 93.4 fl (80-100); Mean Platelet Volume 8.4 fl (7.4-10.4); Platelet Count Result 416 k/mm3 (150-375); Red Blood Count 3.51 M/mm3 (4.2-5.4); Red Cell Distribution Width 13.6 % (11.5-14.5)
[2021-03-06 05:44] LABS: Anion Gap 3 mmol/L (8-16); Blood Urea Nitrogen 3 mg/dL (7-17); Calcium 7.7 mg/dL (8.4-10.2); Carbon Dioxide 28 mmol/L (22-30); Chloride 98 mmol/L (98-107); Estimated CRCL calculation 72 ml/min; Estimated Glomerular Filt Rate > 60; Glucose 109 mg/dL (65-110); Magnesium 1.8 mg/dL (1.6-2.3); Potassium 3.1 mmol/L (3.4-5.0); Sodium 129 mmol/L (137-145)
[2021-03-06 06:00] VITALS: BP 128/52; PULSE 97; RESP 18; TEMP 36.7; O2SAT 94
--- NOTE | 2021-03-06 07:50 | WPDGIPROGNO ---
Progress Note: A&P Assessment and Plan (1) C. difficile colitis: Code(s): A04.72 - Enterocolitis due to Clostridium difficile, not specified as recurrent Status: Acute Assessment and Plan: she is tolerating a regular diet and hopeful of being discharged today. I told her that we ought to to check a stool for C diff after she finishes her antibiotics. (2) IBS (irritable bowel syndrome): Code(s): K58.9 - Irritable bowel syndrome without diarrhea Status: Acute Subjective Date/time seen: 03/06/21 07:50 she has had 4 bowel movements already this morning. They are still loose. Nevertheless, she is hopeful of being discharged today. She is afebrile Review of Systems Review of Systems: All systems reviewed & are unremarkable except as noted in HPI and below Exam Const: General: healthy appearing and comfortable Nutritional Appearance: average body habitus GI: GI Palp: Yes Soft to palpation, Yes Tenderness to palpation present (GI) ( mild diffuse tenderness), No Guarding due to palpation present (GI) and Yes No hepatosplenomegaly present Auscultation: normal bowel sounds Objective Data Vital Signs Vital Signs: Vital Signs - 24 hr 03/05/21 10:19 03/05/21 14:00 03/05/21 21:51 Temperature 37.1 C 36.7 C Pulse Rate 68 78 99 Respiratory Rate 16 18 Blood Pressure 130/70 117/50 L Pulse Oximetry 100 97 03/06/21 06:00 Temperature 36.7 C Pulse Rate 97 Respiratory Rate 18 Blood Pressure 128/52 L Pulse Oximetry 94 Intake/Output Intake/Output: Intake & Output 03/03/21 03/04/21 03/05/21 03/06/21 23:59 23:59 23:59 23:59 Intake Total 3050 2570 1720 450 Output Total 500 1800 2100 Balance 2550 770 -380 450 Meds/Results Medications: Active Medications Generic Name Dose Route Start Last Admin Trade Name Freq PRN Reason Stop Dose Admin Acetaminophen 650 mg 03/04/21 17:22 Acetaminophen 325 Mg Tablet PO Q4H PRN Pain Rated 1 - 6 or Fever Hydrocodone Bitart/Acetaminophen 1 tab 03/04/21 17:22 Hydrocodone/Acetaminophen (*Crx) 5-325 Mg Tablet PO Q6H PRN Pain Rated 7-10 Cholestyramine Resin 4 gm 03/05/21 18:00 03/05/21 20:17 Cholestyramine Light 4 Gm Powd.Pack PO 4 gm BID@1000,1800 SLICK Administration Enoxaparin Sodium 40 mg 02/24/21 09:00 03/05/21 10:18 Enoxaparin 40 Mg/0.4 Ml Syringe SUB-Q 40 mg DAILY SLICK Administration Fluticasone Propionate 1 spray 02/25/21 21:00 03/05/21 20:16 Fluticasone Propionate 0.05% Na Spr 16 Gm Btl (*Bkc) NASAL 1 spray Q12HR SLICK Administration Hydralazine HCl 10 mg 03/02/21 15:41 Hydralazine Hcl 20 Mg/Ml Vial IV PUSH Q8H PRN Blood Pressure - High Metronidazole 500 mg in 100 mls @ 100 mls/hr 02/28/21 17:00 03/06/21 01:08 Flagyl 500 Mg/Iso Soln 100 Ml IVPB Infused Q8H SLICK Infusion Loratadine 5 mg 02/26/21 09:00 03/05/21 10:19 Loratadine 5 Mg Tablet PO 5 mg QAM SLICK Administration Magnesium Oxide 400 mg 03/06/21 09:00 Magnesium Oxide 400 Mg Tablet PO DAILY [facility] Metoprolol Succinate 25 mg 02/23/21 09:00 03/05/21 10:19 Metoprolol Succinate Ext Rel 25 Mg Tabcr PO 25 mg DAILY SLICK Administration Miconazole Nitrate 1 applic 02/24/21 21:00 03/05/21 20:18 Miconazole Nitrate 2% Cream 30 Gm Tube TOPICAL 1 applic Q12HR SLICK Administration Morphine Sulfate 2 mg 03/01/21 11:51 Morphine Sulfate (*Crx) 2 Mg/Ml Inj IV PUSH Q6HR PRN Breakthrough Pain Multivitamins/Calcium 1 tablet 02/23/21 09:00 03/01/21 09:40 Therapeutic Multivitamins/Minerals Tab (*Bkc) PO Not Given DAILY [facility] Ondansetron HCl 4 mg 02/22/21 22:06 03/03/21 06:08 Ondansetron Inj 4 Mg/2 Ml Vial IV PUSH 4 mg Q4H PRN Administration Nausea Pantoprazole Sodium 40 mg 03/01/21 09:00 03/05/21 10:20 Pantoprazole Sodium Iv 40 Mg Vial IV PUSH 40 mg QAM SLICK Administration Phenol 1 spray 03/01/21 12:56 03/02/21 21:49 Phe
[2021-03-06] MEDS: POTASSIUM CHLORIDE 20 MEQ TABLET 40 MEQ PO (08:32)
[2021-03-06] MEDS: CHOLECALCIFEROL 1,000 UNITS TABLET 3000 UNITS PO (08:32)
[2021-03-06] MEDS: MAGNESIUM OXIDE 400 MG TABLET PO (08:33)
[2021-03-06] MEDS: FLUTICASONE PROPIONATE 0.05% NA SPR 16 GM BTL (*BKC) 1 SPRAY NASAL (08:33)
[2021-03-06] MEDS: LORATADINE 5 MG TABLET PO (08:33)
[2021-03-06] MEDS: SACCHAROMYCES BOULARDII 250 MG CAPSULE PO (08:33)
[2021-03-06] MEDS: ENOXAPARIN 40 MG/0.4 ML SYRINGE SUB-Q (08:33)
[2021-03-06] MEDS: MICONAZOLE NITRATE 2% CREAM 30 GM TUBE 1 APPLIC TOPICAL (08:34)
[2021-03-06] MEDS: PANTOPRAZOLE SODIUM IV 40 MG VIAL IV PUSH (08:34)
[2021-03-06 08:35] VITALS: PULSE 100
[2021-03-06] MEDS: METOPROLOL SUCCINATE EXT REL 25 MG TABCR PO (08:35)
[2021-03-06] MEDS: CHOLESTYRAMINE LIGHT 4 GM POWD.PACK PO (10:01)
--- NOTE | 2021-03-06 10:38 | PM.DS ---
DS: Admitting Diagnosis Admitting Diagnosis Admitting Diagnosis: Colitis DS: Discharge Diagnosis Discharge Diagnosis (1) C. difficile colitis: Code(s): A04.72 - Enterocolitis due to Clostridium difficile, not specified as recurrent Status: Acute Assessment and Plan: Date of Admission 02/22/21 Date of Discharge 03/06/21 Ms. Jaramillo is a 75yo F with history of GERD, irritable bowel syndrome with diarrhea, hypertension, dyslipidemia who presented to the ED for evaluation of nausea, vomiting, diarrhea, and abdominal pain that began four days prior to arrival and had gotten progressively worse. She described she does normally have multiple bowel movements daily (normally 3 to 5) but that they are soft, not liquid. Patient passed out sitting on the toilet and was lying on the floor prior to arrival and was having fevers up to 102.4 at home. She noted she had been taking antibiotics for the last 3 months for sinus infection and also was recently treated for UTI end of January. CT abdomen shows findings consistent with colitis. Stool sample positive for C diff. She was treated for C diff colitis initially with oral vancomycin. Was slow to improve so was evaluated by GI, Dr Strickland. She was found to have an ileus and an NG tube was placed to suction for a couple days. IV flagyl was added. She was treated with probiotic and Banatrol supplement. She slowly make improvements but remains weak. She is felt to be a good candidate to continue PT/OT with home health which was arranged prior to her discharge. She is hemodynamically stable for discharge 03/06/21 to follow up with her PCP soon. C. diff toxin detected. Presented with multiple episodes of watery brown stool with marked leukocytosis and CT findings consistent with colitis. She recently completed an extended course of Augmentin for sinus infection. Appreciate GI input. She had NG placed 02/28 due to ileus, clamped 03/03, removed 03/04 per GI recommendations. Treated with oral vancomycin and will discharge with script to complete 14 days considering her complicated course. Treated with 6 days of IV flagyl. CT showed mild thickening of esophagus and stomach - continue PPI. Treated with probiotic and Banatrol. Advanced to regular diet. (2) Sepsis: Qualifiers: Sepsis type: sepsis due to unspecified organism Sepsis acute organ dysfunction status: with acute organ dysfunction Severe sepsis acute organ dysfunction type: acute liver failure Hepatic coma status: without hepatic coma Severe sepsis shock status: without septic shock Qualified Code(s): A41.9 - Sepsis, unspecified organism; R65.20 - Severe sepsis without septic shock; K72.00 - Acute and subacute hepatic failure without coma Code(s): A41.9 - Sepsis, unspecified organism Status: Acute Assessment and Plan: Evident on arrival with leukocytosis and tachycardia. She is afebrile. Lactic acid was initially elevated at 3.8 but improved down to 1.8 with IV fluid rehydration. Source of infection is C. diff colitis. Leukocytosis is mild. Blood cultures are negative. (3) Acute hyponatremia: Code(s): E87.1 - Hypo-osmolality and hyponatremia Status: Acute Assessment and Plan: Secondary to acute dehydration and continued diarrhea. Sodium fluctuating but low/stable. Previous provider discussed case with nephrology early in the stay. Received 1 amp bicarb 02/24. (4) Dehydration: Code(s): E86.0 - Dehydration Status: Acute Assessment and Plan: Presented with acute dehydration secondary to persistent diarrhea. Encourage intake of oral fluids today - IV fluids stopped. (5) Elevated liver enzymes: Code(s): R74.8 - Abnormal levels of other serum enzymes Status
== END 2021-03-06 11:55 | disposition home health service (06) | DRG 372 ==
LOC: ANHED 22:11 → ANH2MED 02-23 00:03
PROVIDERS: Emergency Medicine; Nurse Practitioner; Physician Assistant; Admitting Provider Internal Medicine; Emergency Provider General Practice; PCP Family Medicine; Visit Provider Physician Assistant
DX: A04.72 Enterocolitis due to Clostridium difficile, not specified as recurrent (principal); N39.0 Urinary tract infection, site not specified; K56.7 Ileus, unspecified; E87.1 Hypo-osmolality and hyponatremia; E87.6 Hypokalemia; K58.0 Irritable bowel syndrome with diarrhea; E86.0 Dehydration; I80.8 Phlebitis and thrombophlebitis of other sites; R93.89 Abnormal findings on diagnostic imaging of other specified body structures; R74.8 Abnormal levels of other serum enzymes; I10 Essential (primary) hypertension; K21.9 Gastro-esophageal reflux disease without esophagitis; E78.2 Mixed hyperlipidemia; J32.9 Chronic sinusitis, unspecified; Z79.899 Other long term (current) drug therapy
CPT/HCPCS: 36415; 70450; 71045; 71046; 71100; 74018; 74019; 74177; 76705; 80048; 80053; 80061; 80074; 81001; 82570; 83605; 83690; 83735; 84132; 84295; 84300; 84484; 85025; 85027; 87040; 87045; 87046; 87324; 87427; 93005; 93971; 96361; 96365; 96366; 96372; 96375; 96376; 97110; 97116; 97161; 97165; 97530; 97535; 99291; A9270; C9113; G0378; J0131; J1650; J2270; J2405; J2543; J3475; J3480; J7030; J7040; J7120; Q9967

== ENCOUNTER 2021-03-07 16:33 | Emergency (ER) | payer MEDICARE, SELFPAY ==
[2021-03-07] VITALS (8 sets, daily range): BP systolic 122–146; BP diastolic 59–66; PULSE 104–112; RESP 15–29; TEMP 37–37.4; O2SAT 94–97
[2021-03-07 17:36] LABS: Basophils Absolute Auto 0.1 K/mm3 (0.0-0.1); Basophils Percent Auto 0.7 % (0.2-1.2); Eosinophils Absolute Auto 0.6 K/mm3 (0-0.3); Eosinophils Percent Auto 6.1 % (0-4.4); Hematocrit 35.2 % (37.0-47.0); Hemoglobin 11.2 g/dL (12.0-15.0); Immature Granulocyte Absolute 0.14 K/mm3 (0.00-0.031); Immature Granulocyte Percent A 1.3 % (0-0.5); Lymphocytes Absolute Auto 0.97 K/mm3 (0.9-3.2); Lymphocytes Percent Auto 9.3 % (18.3-44.2); Mean Corpuscular HGB Conc 31.8 g/dl (32-36); Mean Corpuscular Volume 94.4 fl (80-100); Mean Platelet Volume 8.4 fl (7.4-10.4); Monocytes Absolute Auto 0.7 K/mm3 (0.1-0.6); Monocytes Percent Auto 7.1 % (2.6-8.5); Neutrophils Absolute Auto 7.9 K/mm3 (1.3-6.7); Neutrophils Percent Auto 75.5 % (45.5-73.1); Platelet Count Result 431 k/mm3 (150-375); Red Blood Count 3.73 M/mm3 (4.2-5.4); Red Cell Distribution Width 13.9 % (11.5-14.5); White Blood Count 10.4 K/mm3 (4.5-10.0)
[2021-03-07 17:47] LABS: Lactic Acid Reflex 1.4 mmol/L (0.7-2.1)
[2021-03-07 17:49] LABS: Alanine Aminotransferase 22 U/L (4-35); Albumin Level 2.7 g/dL (3.5-5.1); Alkaline Phosphatase 72 U/L (38-126); Anion Gap 6 mmol/L (8-16); Aspartate Amino Transferase 28 U/L (14-36); Bilirubin,Total 0.3 mg/dL (0.2-1.3); Blood Urea Nitrogen 6 mg/dL (7-17); CRP 2.9 mg/dL (<1.0); Calcium 8.1 mg/dL (8.4-10.2); Carbon Dioxide 26 mmol/L (22-30); Chloride 97 mmol/L (98-107); Estimated CRCL calculation 76 ml/min; Estimated Glomerular Filt Rate > 60; Glucose 119 mg/dL (65-110); Potassium 4.1 mmol/L (3.4-5.0); Sodium 129 mmol/L (137-145)
--- NOTE | 2021-03-07 18:58 | PC.NURSE ---
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 Pt requested no more IV attempts without ultrasound. Pt reports the last IV she had placed had to be done using ultrasound.
--- NOTE | 2021-03-07 19:47 | ED.FEVER ---
HPI - Fever General Chief Complaint: Fever Stated Complaint: fever/discharged yesterday Time Seen by Provider: 03/07/21 18:51 Source: patient and family Mode of arrival: ambulatory Limitations: no limitations History of Present Illness HPI Narrative: 75-year-old female Patient has C. difficile and was just discharged from the hospital Home health found a low-grade fever of 100.2 on their visit today Patient continues to feel a little bit generally weak but otherwise she does not have any new symptoms and is afebrile here No cough or shortness of breath, and no urinary symptoms She reports that her diarrhea continues to improve and she does not have abdominal pain Really the only other thing that she has bothered by is that she has some swelling in her feet, possibly secondary to getting IV hydration and steroids in the hospital Related Data Home Medications Medication Instructions Recorded Confirmed Adult Probiotic 3,000 mmu cells PO DAILY 03/17/20 02/22/21 Multivitamin Women 50 Plus 1 tablet PO DAILY 03/17/20 02/22/21 atorvastatin 20 mg PO DAILY 03/17/20 02/22/21 biotin 5,000 mcg SUBLINGUAL DAILY 03/17/20 02/22/21 cholecalciferol (vitamin D3) 75 mcg PO DAILY 03/17/20 02/22/21 cinnamon bark [Cinnamon] 1,000 mg PO DAILY 03/17/20 02/22/21 coenzyme Q10 [Co Q-10] 200 mg PO DAILY 03/17/20 02/22/21 flaxseed oil 1,000 mg PO DAILY 03/17/20 02/22/21 metoprolol succinate 25 mg PO DAILY 03/17/20 02/22/21 trimethoprim 100 mg PO QMWF 03/17/20 02/22/21 turmeric 500 mg PO DAILY 03/17/20 02/22/21 vitamin K2 100 mcg capsule 100 mcg PO DAILY 09/28/20 02/22/21 zinc acetate 50 mg (zinc) capsule 50 mg PO DAILY 09/28/20 02/22/21 Allergies Allergy/AdvReac Type Severity Reaction Status Date / Time No Known Allergies Allergy Verified 03/07/21 18:49 Review of Systems Review of Systems: All systems reviewed & are unremarkable except as noted in HPI and below Constitutional: Constitutional: Reports no additional constitutional complaints, Denies chills, Reports fever(s) and Denies headache(s) Eyes: Eyes: Reports no additional eye complaints and Denies change in vision ENT: Denies headache(s) and Denies sore throat Cardiovascular: Cardiovascular: Denies chest pain and Denies dyspnea Respiratory: Respiratory: Denies cough and Denies dyspnea Gastrointestinal: Gastrointestinal: Reports abdominal pain, Reports diarrhea and Denies vomiting Genitourinary: Genitourinary: Denies urinary frequency and Denies dysuria Musculoskeletal: Musculoskeletal: Denies deformity, Denies arthralgias, Reports joint swelling and Denies numbness Integumentary/Breasts: Skin/Breast: Denies rash and Denies wounds Neurologic: Denies headache(s), Denies focal weakness and Denies numbness Psychiatric: Psychiatric: Reports no additional psychiatric complaints Endocrine: Endocrine: Reports no additional endocrine complaints Hematologic/Lymphatic: Hematologic/Lymphatic: Reports no additional hematologic/lymphatic complaints Allergic/Immunologic: Allergic/Immunologic: Reports no additional allergic/immunologic complaints PMFSH Past Medical History Medical History (Updated 03/07/21 @ 19:53 by Ranulfo Mack MD) Adenomatous colon polyp Endometriosis GERD (gastroesophageal reflux disease) HLD (hyperlipidemia) HTN (hypertension) Hypokalemia Irritable bowel syndrome with diarrhea Leg cramps Mitral valve prolapse Overweight (BMI 25.0-29.9) Recurrent sinus infections Recurrent UTI Surgical History Surgical History H/O arthroscopy of left knee H/O: hysterectomy 1981 History of cholecystectomy 2012 History of radiofrequency ablation (RFA) procedure for cardiac arrhythmia 2014 Hx of colonoscopy Status post laser cataract surgery left eye 2018 right eye 2018 Family History Family History Father Heart disease Acute myoc
== END 2021-03-07 20:00 | disposition home or self-care (01) ==
PROVIDERS: Emergency Medicine; Emergency Provider Emergency Medicine; PCP Family Medicine
DX: K52.9 Noninfective gastroenteritis and colitis, unspecified (principal); K21.9 Gastro-esophageal reflux disease without esophagitis; E78.5 Hyperlipidemia, unspecified; I10 Essential (primary) hypertension
CPT/HCPCS: 36415; 80053; 83605; 85025; 86140; 99283

== ENCOUNTER 2021-03-09 11:21 | Outpatient (NON) | payer MEDICARE, SELFPAY ==
[2021-03-09 11:43] LABS: Basophils Absolute Auto 0.1 K/mm3 (0.0-0.1); Basophils Percent Auto 1.1 % (0.2-1.2); Eosinophils Absolute Auto 0.9 K/mm3 (0-0.3); Hematocrit 33.1 % (37.0-47.0); Hemoglobin 10.6 g/dL (12.0-15.0); Immature Granulocyte Absolute 0.12 K/mm3 (0.00-0.031); Immature Granulocyte Percent A 1.5 % (0-0.5); Lymphocytes Absolute Auto 1.01 K/mm3 (0.9-3.2); Lymphocytes Percent Auto 12.4 % (18.3-44.2); Mean Corpuscular Hemoglobin 30.2 pg (26-34); Mean Corpuscular Volume 94.3 fl (80-100); Mean Platelet Volume 8.6 fl (7.4-10.4); Monocytes Absolute Auto 0.9 K/mm3 (0.1-0.6); Monocytes Percent Auto 10.8 % (2.6-8.5); Neutrophils Absolute Auto 5.1 K/mm3 (1.3-6.7); Neutrophils Percent Auto 63.2 % (45.5-73.1); Platelet Count Result 425 k/mm3 (150-375); Red Blood Count 3.51 M/mm3 (4.2-5.4); Red Cell Distribution Width 13.9 % (11.5-14.5); White Blood Count 8.1 K/mm3 (4.5-10.0)
[2021-03-09 11:53] LABS: Anion Gap 4 mmol/L (8-16); Blood Urea Nitrogen 7 mg/dL (7-17); Calcium 8.4 mg/dL (8.4-10.2); Carbon Dioxide 29 mmol/L (22-30); Chloride 96 mmol/L (98-107); Estimated Glomerular Filt Rate > 60; Glucose 102 mg/dL (65-110); Potassium 4.1 mmol/L (3.4-5.0); Sodium 129 mmol/L (137-145)
== END 2021-03-09 11:22 | disposition home or self-care (01) ==
PROVIDERS: PCP Family Medicine; Visit Provider Physician Assistant
DX: E87.8 Other disorders of electrolyte and fluid balance, not elsewhere classified (principal); A04.72 Enterocolitis due to Clostridium difficile, not specified as recurrent
CPT/HCPCS: 80048; 83735; 85025

== ENCOUNTER 2021-03-18 05:51 | Observation (INO) | payer MEDICARE, SELFPAY ==
[2021-03-18] VITALS (11 sets, daily range): BP systolic 101–156; BP diastolic 50–69; PULSE 99–115; RESP 13–20; TEMP 36.2–37.4; O2SAT 96–100
--- NOTE | ~2021-03-18 | CT_ITS ---
EXAMINATION: CT abdomen pelvis w con DATE: 03/18/2021 06:38 INDICATION: Infection. Uncontrollable liquid diarrhea. TECHNIQUE: Computed tomography (CT) of the abdomen and pelvis was performed with 100 mL Omnipaque-350 intravenous contrast. Automated exposure control and iterative reconstruction technique were employe d. The dose-length product was 584.62 mGy-cm. COMPARISON: None FINDINGS: Dependent atelectasis in the bilateral lower lobes and lingula. Heart size is normal. No pericardial or pleural effusion. 2.8 cm cyst at the dome of the liver. Gallbladder is not visualized and likely s urgically absent. Spleen, pancreas, bilateral adrenal glands and kidneys are normal. There is diffuse wall thickening of the colon with mild surrounding inflammatory stranding consistent with colitis. T here is mild sigmoid diverticulosis with a more focal surrounding inflammatory stranding to suggest d iverticulitis. There is small thickening of the appendix however there is no surrounding inflammatory stranding and is more likely reactive related to the colitis into a superimposed acute appendicitis. No pneumatosis, abscess or free intraperitoneal gas or fluid. Bladder is normal. The uterus is not i dentified and has likely been surgically resected. No pathologically enlarged abdominal or pelvic lym phadenopathy. 4 mm anterolisthesis L4 on L5. Moderate to severe lumbar facet osteoarthritis. IMPRESSION: 1. Diffuse colitis. Reviewed, dictated and finalized at location A. IMPRESSION: 1. Diffuse colitis.
--- NOTE | 2021-03-18 06:19 | ED.NAVMDI ---
HPI - Nausea/Vomiting/Diarrhea General Chief complaint: Nausea/Vomiting/Diarrhea <Christopher Ramsey MD - Last Filed: 03/22/21 08:30> Stated complaint: Diarrhea, fever <Christopher Ramsey MD - Last Filed: 03/22/21 08:30> Time Seen by Provider: 03/18/21 05:54 <Christopher Ramsey MD - Last Filed: 03/22/21 08:30> History of Present Illness HPI Narrative: 75 yo female w/ h/o c. diff presents to the ED for diarrhea. She has had multiple liquid stools since last night. Additionally she had fever up to 102 at home. She just completed antibiotics for C. diff a few days ago. She does have genralized abdominal pain, this does not seem to be entirely atypical for her. <Christopher Ramsey MD - Last Filed: 03/22/21 08:30> Related Data Home medications: Home Medications Medication Instructions Recorded Confirmed Adult Probiotic 3,000 mmu cells PO DAILY 03/17/20 03/18/21 Multivitamin Women 50 Plus 1 tablet PO DAILY 03/17/20 03/18/21 atorvastatin 20 mg PO DAILY 03/17/20 03/18/21 biotin 5,000 mcg SUBLINGUAL DAILY 03/17/20 03/18/21 cholecalciferol (vitamin D3) 75 mcg PO DAILY 03/17/20 03/18/21 coenzyme Q10 [Co Q-10] 200 mg PO DAILY 03/17/20 03/18/21 flaxseed oil 1,000 mg PO DAILY 03/17/20 03/18/21 metoprolol succinate 25 mg PO DAILY 03/17/20 03/18/21 turmeric 500 mg PO DAILY 03/17/20 03/18/21 vitamin K2 100 mcg capsule 100 mcg PO DAILY 09/28/20 03/18/21 zinc acetate 50 mg (zinc) capsule 50 mg PO DAILY 09/28/20 03/18/21 famotidine 20 mg PO BID 03/18/21 03/18/21 furosemide 20 mg PO DAILY 03/18/21 03/18/21 witch rose leaf (hamamelis) 1 applic TOPICAL BID PRN 03/18/21 03/18/21 <Christopher Ramsey MD - Last Filed: 03/22/21 08:30> Allergies/Adverse reactions: Allergies Allergy/AdvReac Type Severity Reaction Status Date / Time No Known Allergies Allergy Verified 03/18/21 06:04 <Christopher Ramsey MD - Last Filed: 03/22/21 08:30> Review of Systems Review of Systems: All systems reviewed & are unremarkable except as noted in HPI and below <Christopher Ramsey MD - Last Filed: 03/22/21 08:30> Constitutional: Constitutional: Reports chills, Reports fever(s) and Reports weakness <Christopher Ramsey MD - Last Filed: 03/22/21 08:30> Cardiovascular: Cardiovascular: Denies chest pain <Christopher Ramsey MD - Last Filed: 03/22/21 08:30> Respiratory: Respiratory: Denies dyspnea <Christopher Ramsey MD - Last Filed: 03/22/21 08:30> Gastrointestinal: Gastrointestinal: Reports abdominal pain, Reports diarrhea and Denies vomiting <Christopher Ramsey MD - Last Filed: 03/22/21 08:30> Genitourinary: Genitourinary: Reports no additional female genitourinary complaints <Christopher Ramsey MD - Last Filed: 03/22/21 08:30> Neurologic: Reports weakness <Christopher Ramsey MD - Last Filed: 03/22/21 08:30> PMFSH Past Medical History Medical History: Medical History Adenomatous colon polyp Endometriosis GERD (gastroesophageal reflux disease) HLD (hyperlipidemia) HTN (hypertension) Hypokalemia Irritable bowel syndrome with diarrhea Leg cramps Mitral valve prolapse Overweight (BMI 25.0-29.9) Recurrent sinus infections Recurrent UTI <Christopher Ramsey MD - Last Filed: 03/22/21 08:30> Surgical History Surgical History: Surgical History H/O arthroscopy of left knee H/O: hysterectomy 1981 History of cholecystectomy 2013 History of radiofrequency ablation (RFA) procedure for cardiac arrhythmia 2015 Hx of colonoscopy Status post laser cataract surgery left eye 2018 right eye 2018 <Christopher Ramsey MD - Last Filed: 03/22/21 08:30> Family History Family History: Family History Father Heart disease Acute myocardial infarction Mother , found after knee replacement Heart dise
[2021-03-18 06:27] LABS: Basophils Absolute Auto 0.2 K/mm3 (0.0-0.1); Eosinophils Absolute Auto 0.1 K/mm3 (0-0.3); Eosinophils Percent Auto 0.7 % (0-4.4); Hematocrit 37.8 % (37.0-47.0); Immature Granulocyte Absolute 0.12 K/mm3 (0.00-0.031); Immature Granulocyte Percent A 0.8 % (0-0.5); Lymphocytes Absolute Auto 2.31 K/mm3 (0.9-3.2); Lymphocytes Percent Auto 14.8 % (18.3-44.2); Mean Corpuscular HGB Conc 31.7 g/dl (32-36); Mean Corpuscular Hemoglobin 29.9 pg (26-34); Mean Platelet Volume 8.6 fl (7.4-10.4); Monocytes Absolute Auto 1.3 K/mm3 (0.1-0.6); Neutrophils Absolute Auto 11.6 K/mm3 (1.3-6.7); Neutrophils Percent Auto 74.7 % (45.5-73.1); Platelet Count Result 533 k/mm3 (150-375); Red Blood Count 4.02 M/mm3 (4.2-5.4); Red Cell Distribution Width 14.1 % (11.5-14.5); White Blood Count 15.6 K/mm3 (4.5-10.0)
[2021-03-18] MEDS: SODIUM CHLORIDE 0.9% IV 1,000 ML 999 ML IV CONT (06:43)
[2021-03-18] MEDS: VANCOMYCIN ORAL 125 MG/2.5 ML SYRUP PO ×2 (06:52→12:11)
[2021-03-18 06:56] LABS: Alanine Aminotransferase 21 U/L (4-35); Albumin Level 3.5 g/dL (3.5-5.1); Alkaline Phosphatase 95 U/L (38-126); Anion Gap 10 mmol/L (8-16); Aspartate Amino Transferase 35 U/L (14-36); Bilirubin,Total 0.9 mg/dL (0.2-1.3); Blood Urea Nitrogen 10 mg/dL (7-17); Calcium 9.4 mg/dL (8.4-10.2); Carbon Dioxide 23 mmol/L (22-30); Chloride 100 mmol/L (98-107); Estimated CRCL calculation 49 ml/min; Estimated Glomerular Filt Rate > 60; Glucose 128 mg/dL (65-110); Lipase 231 U/L (23-300); Potassium 4.6 mmol/L (3.4-5.0); Sodium 133 mmol/L (137-145)
[2021-03-18 08:29] LABS: Estimated CRCL calculation 49 ml/min; Estimated Glomerular Filt Rate > 60
[2021-03-18 08:34] LABS: Add Urine Microscopic? NO; Appearance Urine Clear (Clear); Bilirubin Urine Negative (Negative); Blood Urine Negative (Negative); Color Urine Yellow (Yellow); Glucose Urine UA Negative (Negative); Ketones Urine Negative (Negative); Leukocyte Esterase Ur Negative LEU/UL (Negative); Nitrate Urine Negative (Negative); Protein Urine Negative (Negative); Urobilinogen Urine Negative mg/dL (<2.0)
[2021-03-18 08:39] LABS: Specific Grav Ur > 1.060 (1.001-1.035)
--- NOTE | 2021-03-18 14:58 | PC.NURSE ---
floor nurse will call back to ed when avail for report
--- NOTE | 2021-03-18 16:01 | ADMGEN ---
This patient, Keisha Jaramillo, was admitted to Medical Room 340-01. Patient/family oriented to hospital policies and general routines including ID bracelet, bed and alarms, visiting hours, pain management, procedures, bathroom and other care routines, personal items, smoking policy, room service/diet, and visiting hours. Information on how to activate the Rapid Response Team has been discussed. Patient/Family are encouraged to report perceived risks to care and to ask questions if they do not understand what they are told or what they should do.
--- NOTE | 2021-03-18 16:49 | PM.IMHP ---
H&P: HPI History of Present Illness Date/Time: 03/18/211699 Chief Complaint: Diarrhea Narrative: Date of Service 03/18/211699 The supervising physician for this history and physical is Dr Regina Alexandra. Ms. Jaramillo is a 75 yo F with history of IBS-D, hypertension, hyperlipidemia, and GERD who presented to the ED for evaluation of diarrhea. She was recently hospitalized at our facility for 12 days and discharged on 03/06/21 when she was treated here for [id number] course of C diff colitis. She completed 14 days of oral vancomycin on 03/11/21. She tells me she was feeling great after she discharged and was doing quite well, diarrhea had resolved and her bowel movements were back to normal, she was feeling stronger. She describes on a regular day, she will have between 3 to 5 bowel movements due to her chronic IBD, but that these stools are usually formed/soft. She was feeling pretty well up until last night when she began to have several liquid bowel movements all through the night (she thinks about 7 liquid BMs) and described fever 101.8F at home. She describes some diffuse abdominal discomfort at present without point tenderness. She reports some nausea at present just due to being hungry/not eating all day but denies vomiting. She did not feel her abdomen was overly distended. She visited the ED the day following her hospital discharge because home health staff noted her to have a fever. Her ED workup that day was fairly unremarkable aside from some mild lower leg swelling, potentially from her IV fluid rehydration from her admission. She was given a few days of oral Lasix which she notes helped her swelling tremendously and this has resolved now. Current ED workup has shown leukocytosis WBC 15.6k (compared to 8.1 last week), sodium 133 (compared to 129 last week) otherwise labs are fairly unremarkable. UA is grossly normal and she denies urinary symptoms. Repeat CT abd/pel once again demonstrates a diffuse colitis without perforation or abscess. She is having some sinus tachycardia similar to her last admission. She meets sepsis criteria with leukocytosis, tachycardia suspected GI source. She is admitted to the hospitalist service in observation status for recurrent C diff colitis. Review of Systems Review of Systems: She notes her diarrhea is slowing down this afternoon. She has some diffuse abdominal discomfort without point tenderness. Slight nausea without vomiting. Denies chest pain, palpitations, shortness of breath, or dizziness. Denies dysuria, hematuria, or urinary frequency. Twelve systems were reviewed with pertinent positives and negatives as per HPI. Except as documented, all other systems were reviewed and are negative. [facility] Past Medical History Medical History Adenomatous colon polyp Endometriosis GERD (gastroesophageal reflux disease) HLD (hyperlipidemia) HTN (hypertension) Hypokalemia Irritable bowel syndrome with diarrhea Leg cramps Mitral valve prolapse Overweight (BMI 25.0-29.9) Recurrent sinus infections Recurrent UTI Surgical History Surgical History H/O arthroscopy of left knee H/O: hysterectomy 1980 History of cholecystectomy 2012 History of radiofrequency ablation (RFA) procedure for cardiac arrhythmia 2014 Hx of colonoscopy Status post laser cataract surgery left eye 2018 right eye 2018 Family History Family History Father Heart disease Acute myocardial infarction Mother , found after knee replacement Heart disease Acute myocardial infarction Anaphylactic reaction due to administration of blood and blood products Sibling , Sister Heart disease COPD (chronic obstructive pulmonary disease) Asthma Social History Social History So
[2021-03-18] MEDS: SACCHAROMYCES BOULARDII 250 MG CAPSULE PO (17:46)
[2021-03-18] MEDS: FIDAXOMICIN 200 MG TABLET PO (17:46)
[2021-03-18] MEDS: SODIUM CHLORIDE 0.9% IV 1,000 ML 100 ML IV CONT (18:42)
[2021-03-18] MEDS: CHOLESTYRAMINE LIGHT 4 GM POWD.PACK PO (18:42)
[2021-03-18] MEDS: FAMOTIDINE 20 MG TABLET PO (20:50)
[2021-03-18] MEDS: FLUTICASONE PROPIONATE 0.05% NA SPR 16 GM BTL (*BKC) 1 SPRAY NASAL (20:50)
[2021-03-19] VITALS (8 sets, daily range): BP systolic 117–139; BP diastolic 53–54; PULSE 81–95; RESP 16–18; TEMP 36.2–37.2; O2SAT 94–97; BMI 24.6
[2021-03-19] MEDS: FIDAXOMICIN 200 MG TABLET PO ×2 (05:44→18:21)
[2021-03-19 06:38] LABS: Basophils Absolute Auto 0.1 K/mm3 (0.0-0.1); Basophils Percent Auto 0.9 % (0.2-1.2); Eosinophils Absolute Auto 0.2 K/mm3 (0-0.3); Eosinophils Percent Auto 1.5 % (0-4.4); Hematocrit 35.8 % (37.0-47.0); Hemoglobin 11.1 g/dL (12.0-15.0); Immature Granulocyte Percent A 0.9 % (0-0.5); Lymphocytes Absolute Auto 1.95 K/mm3 (0.9-3.2); Lymphocytes Percent Auto 17.2 % (18.3-44.2); Mean Corpuscular Hemoglobin 29.9 pg (26-34); Mean Corpuscular Volume 96.5 fl (80-100); Mean Platelet Volume 8.5 fl (7.4-10.4); Monocytes Percent Auto 8.9 % (2.6-8.5); Neutrophils Percent Auto 70.6 % (45.5-73.1); Platelet Count Result 445 k/mm3 (150-375); Red Blood Count 3.71 M/mm3 (4.2-5.4); Red Cell Distribution Width 14.3 % (11.5-14.5); White Blood Count 11.3 K/mm3 (4.5-10.0)
[2021-03-19 06:52] LABS: Alanine Aminotransferase 18 U/L (4-35); Albumin Level 3.1 g/dL (3.5-5.1); Alkaline Phosphatase 83 U/L (38-126); Anion Gap 8 mmol/L (8-16); Aspartate Amino Transferase 25 U/L (14-36); Bilirubin,Total 0.7 mg/dL (0.2-1.3); Blood Urea Nitrogen 8 mg/dL (7-17); Calcium 9.1 mg/dL (8.4-10.2); Carbon Dioxide 27 mmol/L (22-30); Chloride 98 mmol/L (98-107); Estimated CRCL calculation 56 ml/min; Estimated Glomerular Filt Rate > 60; Glucose 95 mg/dL (65-110); Magnesium 1.8 mg/dL (1.6-2.3); Potassium 4.1 mmol/L (3.4-5.0); Sodium 133 mmol/L (137-145)
[2021-03-19] MEDS: SACCHAROMYCES BOULARDII 250 MG CAPSULE PO ×2 (08:59→16:24)
[2021-03-19] MEDS: ATORVASTATIN 20 MG TABLET PO (08:59)
[2021-03-19] MEDS: FAMOTIDINE 20 MG TABLET PO ×2 (08:59→20:45)
[2021-03-19] MEDS: ENOXAPARIN 40 MG/0.4 ML SYRINGE SUB-Q (09:00)
[2021-03-19] MEDS: FLUTICASONE PROPIONATE 0.05% NA SPR 16 GM BTL (*BKC) 1 SPRAY NASAL ×2 (09:00→20:45)
[2021-03-19] MEDS: METOPROLOL SUCCINATE EXT REL 25 MG TABCR PO (09:00)
[2021-03-19] MEDS: CHOLESTYRAMINE LIGHT 4 GM POWD.PACK PO ×2 (10:25→18:21)
[2021-03-19] MEDS: MAGNESIUM OXIDE 200 MG TABLET PO ×2 (11:55→20:45)
--- NOTE | 2021-03-19 16:01 | PM.IMPN ---
Progress Note: A&P Assessment and Plan (1) C. difficile colitis: Code(s): A04.72 - Enterocolitis due to Clostridium difficile, not specified as recurrent Status: Acute Assessment and Plan: Patient presents with acute onset of several liquid BMs 03/17 evening after recently being hospitalized for C diff colitis. She completed a 14-day course of oral vancomycin 03/11/21. CT abd/pel shows diffuse wall thickening of the colon consistent with colitis, mild more focal surrounding inflammatory stranding to suggest possible diverticulitis, small thickening of the appendix which could be reactive related to colitis. Continue fidaxomicin started 03/18. Continue other supportive care to include the Questran she was taking at discharge, banatrol, probiotics. Monitor and consider says GI consultation if no improvement. She was evaluated by Dr. Strickland during her last admission. (2) Sepsis: Qualifiers: Sepsis type: sepsis due to unspecified organism Sepsis acute organ dysfunction status: with acute organ dysfunction Severe sepsis acute organ dysfunction type: acute liver failure Hepatic coma status: without hepatic coma Severe sepsis shock status: without septic shock Qualified Code(s): A41.9 - Sepsis, unspecified organism; R65.20 - Severe sepsis without septic shock; K72.00 - Acute and subacute hepatic failure without coma Code(s): A41.9 - Sepsis, unspecified organism Status: Acute Assessment and Plan: Evident on arrival by leukocytosis, tachycardia. Suspected source is above, C diff colitis. UA negative. Imaging with some mild atelectasis. Blood cultures pending. Monitor vital signs, urine output. IV hydration overnight. (3) Acute hyponatremia: Code(s): E87.1 - Hypo-osmolality and hyponatremia Status: Acute Assessment and Plan: Mild, sodium 133 actually improved from last week. Monitor serum sodium. (4) Hypertension: Qualifiers: Hypertension type: primary hypertension Qualified Code(s): I10 - Essential (primary) hypertension Code(s): I10 - Essential (primary) hypertension Status: Chronic Assessment and Plan: Blood pressures reviewed, mostly stable last 117/53. Continue her home metoprolol. Monitor BP and adjust treatment as needed. (5) HLD (hyperlipidemia): Qualifiers: Hyperlipidemia type: mixed hyperlipidemia Qualified Code(s): E78.2 - Mixed hyperlipidemia Code(s): E78.5 - Hyperlipidemia, unspecified Status: Chronic Assessment and Plan: Resume her home statin therapy. (6) GERD (gastroesophageal reflux disease): Qualifiers: Esophagitis presence: without esophagitis Qualified Code(s): K21.9 - Gastro-esophageal reflux disease without esophagitis Code(s): K21.9 - Gastro-esophageal reflux disease without esophagitis Status: Chronic Assessment and Plan: Pepcid. Subjective Date/time seen: 03/19/21 1530 Interval history: Ms. Jaramillo is a 75yo F admitted with C diff colitis again after completing 14-day course of oral vancomycin 03/11/21. She reports feeling better today. She was up from 1 am having diarrhea through much of the night around 4 liquid BMs but has not had a bowel movement now for several hours. Tolerating some oral intake and in fact is doing better eating small meals throughout the day. Mild diffuse abdominal discomfort. Some mild nausea intermittently without vomiting. No chest pain, shortness of breath or palpitations. Overall feeling stronger with more energy compared to recent admission. Review of Systems Review of Systems: All systems reviewed & are unremarkable except as noted in HPI and below E
[2021-03-20] MEDS: FIDAXOMICIN 200 MG TABLET PO ×2 (05:18→17:26)
[2021-03-20 05:28] VITALS: BP 136/60; PULSE 83; RESP 18; TEMP 36.4; O2SAT 94
[2021-03-20 06:54] LABS: Hematocrit 32.8 % (37.0-47.0); Hemoglobin 10.8 g/dL (12.0-15.0); Mean Corpuscular HGB Conc 32.9 g/dl (32-36); Mean Corpuscular Hemoglobin 30.6 pg (26-34); Mean Corpuscular Volume 92.9 fl (80-100); Mean Platelet Volume 8.5 fl (7.4-10.4); Platelet Count Result 408 k/mm3 (150-375); Red Blood Count 3.53 M/mm3 (4.2-5.4); Red Cell Distribution Width 13.6 % (11.5-14.5); White Blood Count 6.3 K/mm3 (4.5-10.0)
[2021-03-20 06:58] LABS: Anion Gap 7 mmol/L (8-16); Blood Urea Nitrogen 8 mg/dL (7-17); Calcium 8.8 mg/dL (8.4-10.2); Carbon Dioxide 26 mmol/L (22-30); Chloride 101 mmol/L (98-107); Estimated CRCL calculation 49 ml/min; Estimated Glomerular Filt Rate > 60; Glucose 108 mg/dL (65-110); Potassium 3.7 mmol/L (3.4-5.0); Sodium 134 mmol/L (137-145)
[2021-03-20] MEDS: ATORVASTATIN 20 MG TABLET PO (09:16)
[2021-03-20] MEDS: MAGNESIUM OXIDE 200 MG TABLET PO ×2 (09:16→21:01)
[2021-03-20] MEDS: ENOXAPARIN 40 MG/0.4 ML SYRINGE SUB-Q (09:16)
[2021-03-20] MEDS: SACCHAROMYCES BOULARDII 250 MG CAPSULE PO ×2 (09:16→17:26)
[2021-03-20] MEDS: FAMOTIDINE 20 MG TABLET PO ×2 (09:16→21:01)
[2021-03-20] MEDS: METOPROLOL SUCCINATE EXT REL 25 MG TABCR PO (09:16)
[2021-03-20] MEDS: CHOLESTYRAMINE LIGHT 4 GM POWD.PACK PO ×2 (09:16→18:29)
[2021-03-20] MEDS: FLUTICASONE PROPIONATE 0.05% NA SPR 16 GM BTL (*BKC) 1 SPRAY NASAL ×2 (09:16→21:02)
--- NOTE | 2021-03-20 11:03 | PM.IMPN ---
Progress Note: A&P Assessment and Plan (1) C. difficile colitis: Code(s): A04.72 - Enterocolitis due to Clostridium difficile, not specified as recurrent Status: Acute Assessment and Plan: Patient presents with acute onset of several liquid BMs 03/17 evening after recently being hospitalized for C diff colitis. She completed a 14-day course of oral vancomycin 03/11/21. CT abd/pel shows diffuse wall thickening of the colon consistent with colitis, mild more focal surrounding inflammatory stranding to suggest possible diverticulitis, small thickening of the appendix which could be reactive related to colitis. Continue fidaxomicin started 03/18. Continue other supportive care to include the Questran she was taking at discharge, banatrol, probiotics. Monitor and consider says GI consultation if no improvement. She was evaluated by Dr. Strickland during her last admission. Consider discharge tomorrow if she continues to have improvement in bowel movements, afebrile and other alex feeling better. (2) Sepsis: Qualifiers: Hepatic coma status: without hepatic coma Sepsis acute organ dysfunction status: with acute organ dysfunction Sepsis type: sepsis due to unspecified organism Severe sepsis acute organ dysfunction type: acute liver failure Severe sepsis shock status: without septic shock Qualified Code(s): A41.9 - Sepsis, unspecified organism; R65.20 - Severe sepsis without septic shock; K72.00 - Acute and subacute hepatic failure without coma Code(s): A41.9 - Sepsis, unspecified organism Status: Acute Assessment and Plan: Evident on arrival by leukocytosis, tachycardia. Suspected source is above, C diff colitis. UA negative. Imaging with some mild atelectasis. Blood cultures pending. Monitor vital signs, urine output. DC IV hydration (3) Acute hyponatremia: Code(s): E87.1 - Hypo-osmolality and hyponatremia Status: Acute Assessment and Plan: Mild, sodium 134 actually improved from last week. Monitor serum sodium. (4) Hypertension: Qualifiers: Hypertension type: primary hypertension Qualified Code(s): I10 - Essential (primary) hypertension Code(s): I10 - Essential (primary) hypertension Status: Chronic Assessment and Plan: Blood pressures reviewed, mostly stable last 136/60. Continue her home metoprolol. Monitor BP and adjust treatment as needed. (5) HLD (hyperlipidemia): Qualifiers: Hyperlipidemia type: mixed hyperlipidemia Qualified Code(s): E78.2 - Mixed hyperlipidemia Code(s): E78.5 - Hyperlipidemia, unspecified Status: Chronic Assessment and Plan: Resume her home statin therapy. (6) GERD (gastroesophageal reflux disease): Qualifiers: Esophagitis presence: without esophagitis Qualified Code(s): K21.9 - Gastro-esophageal reflux disease without esophagitis Code(s): K21.9 - Gastro-esophageal reflux disease without esophagitis Status: Chronic Assessment and Plan: Pepcid. Time Spent With Patient Time with patient: 25 - 35 minutes Subjective Date/time seen: 03/20/21 11:03 Interval history: Ms. Jaramillo is a 75yo F admitted with C diff colitis again after completing 14-day course of oral vancomycin 03/11/21. Date of Service 03/20/21: The patient reports feeling well today. She did have multiple bowel movements this morning, states that is normal for her to have multiple bowel movements in the morning time. She said there is more stool material in the bowel movements. she still continues to have some abdominal discomfort but it is prior to bowel movements. And she did have some night sweats and chills las
[2021-03-20 14:26] VITALS: BP 113/52; PULSE 83; RESP 16; TEMP 35.9; O2SAT 98
[2021-03-20] MEDS: ACETAMINOPHEN 325 MG TABLET 650 MG PO (15:08)
[2021-03-20 21:04] VITALS: BP 134/49; PULSE 77; RESP 16; TEMP 36.3; O2SAT 100
[2021-03-21 04:48] VITALS: BP 126/55; PULSE 82; RESP 20; TEMP 36.3; O2SAT 98
[2021-03-21] MEDS: FIDAXOMICIN 200 MG TABLET PO (05:17)
[2021-03-21 06:09] LABS: Hematocrit 33.8 % (37.0-47.0); Hemoglobin 10.6 g/dL (12.0-15.0); Mean Corpuscular HGB Conc 31.4 g/dl (32-36); Mean Corpuscular Hemoglobin 29.9 pg (26-34); Mean Corpuscular Volume 95.2 fl (80-100); Mean Platelet Volume 8.7 fl (7.4-10.4); Platelet Count Result 431 k/mm3 (150-375); Red Blood Count 3.55 M/mm3 (4.2-5.4); Red Cell Distribution Width 13.5 % (11.5-14.5); White Blood Count 5.7 K/mm3 (4.5-10.0)
[2021-03-21 06:17] LABS: Anion Gap 8 mmol/L (8-16); Blood Urea Nitrogen 7 mg/dL (7-17); Calcium 9.1 mg/dL (8.4-10.2); Carbon Dioxide 24 mmol/L (22-30); Chloride 105 mmol/L (98-107); Estimated CRCL calculation 56 ml/min; Estimated Glomerular Filt Rate > 60; Glucose 93 mg/dL (65-110); Magnesium 2.1 mg/dL (1.6-2.3); Potassium 4.2 mmol/L (3.4-5.0); Sodium 137 mmol/L (137-145)
[2021-03-21] MEDS: MAGNESIUM OXIDE 200 MG TABLET PO (07:46)
[2021-03-21] MEDS: FAMOTIDINE 20 MG TABLET PO (07:46)
[2021-03-21 07:47] VITALS: PULSE 102
[2021-03-21] MEDS: ENOXAPARIN 40 MG/0.4 ML SYRINGE SUB-Q (07:47)
[2021-03-21] MEDS: ATORVASTATIN 20 MG TABLET PO (07:47)
[2021-03-21] MEDS: SACCHAROMYCES BOULARDII 250 MG CAPSULE PO (07:47)
[2021-03-21] MEDS: METOPROLOL SUCCINATE EXT REL 25 MG TABCR PO (07:47)
[2021-03-21] MEDS: FLUTICASONE PROPIONATE 0.05% NA SPR 16 GM BTL (*BKC) 1 SPRAY NASAL (07:49)
[2021-03-21] MEDS: CHOLESTYRAMINE LIGHT 4 GM POWD.PACK PO (10:37)
--- NOTE | 2021-03-21 12:06 | PM.DS ---
DS: Admitting Diagnosis Admitting Diagnosis Diarrhea DS: Discharge Diagnosis Discharge Diagnosis (1) C. difficile colitis: Code(s): A04.72 - Enterocolitis due to Clostridium difficile, not specified as recurrent Status: Acute Assessment and Plan: Patient is a 75 year old woman with a history of recent C. diff infection which was diagnosed 02/22/21 and treated with 14 days of oral Vancomycin with some improvement of her symptoms, but then began having several liquid BMs 03/17 evening. Symptoms continued and she came to the ER for further evaluation. Initial vitals showed initial labs showed leukocytosis at 15,600, with elevated neutrophil count. Slight hyponatremia at 133. Otherwise normal CBC and lipase. Normal urinalysis. CT abd/pel shows diffuse wall thickening of the colon consistent with colitis, mild more focal surrounding inflammatory stranding to suggest possible diverticulitis, small thickening of the appendix which could be reactive related to colitis. The patient was admitted into the hospital for recurrent C diff colitis and started on fidaxomicin started 03/18. she was slowly feeling better with a decrease in her bowel movements during hospitalization. She was eating and drinking without any issues. Working on discharge the fidaxomicin was found to be over $1000, so instead she was discharged on Vancomycin PO Taper for 1st recurrent infection- Take 1 tablet 4 times per day for 10 days, then 1 tablet twice daily for 7 days, then 1 tablet daily for 7 days, then 1 tablet every other day for 2 weeks. patient otherwise continue on probiotics and follow-up with her GI specialist and primary care provider. Return to ER warnings given. Patient understands and agrees with plan all questions answered. (2) Sepsis: Qualifiers: Hepatic coma status: without hepatic coma Sepsis acute organ dysfunction status: with acute organ dysfunction Sepsis type: sepsis due to unspecified organism Severe sepsis acute organ dysfunction type: acute liver failure Severe sepsis shock status: without septic shock Qualified Code(s): A41.9 - Sepsis, unspecified organism; R65.20 - Severe sepsis without septic shock; K72.00 - Acute and subacute hepatic failure without coma Code(s): A41.9 - Sepsis, unspecified organism Status: Acute Assessment and Plan: Evident on arrival by leukocytosis, tachycardia. Suspected source is above, C diff colitis. UA negative. Imaging with some mild atelectasis. Blood cultures negative to date. No longer septic (3) Acute hyponatremia: Code(s): E87.1 - Hypo-osmolality and hyponatremia Status: Acute Assessment and Plan: Mild, sodium 134 actually improved from last week. Monitor serum sodium. (4) Hypertension: Qualifiers: Hypertension type: primary hypertension Qualified Code(s): I10 - Essential (primary) hypertension Code(s): I10 - Essential (primary) hypertension Status: Chronic Assessment and Plan: Blood pressures reviewed, mostly stable last 126/55. Continue her home metoprolol. (5) HLD (hyperlipidemia): Qualifiers: Hyperlipidemia type: mixed hyperlipidemia Qualified Code(s): E78.2 - Mixed hyperlipidemia Code(s): E78.5 - Hyperlipidemia, unspecified Status: Chronic Assessment and Plan: Resume her home statin therapy. (6) GERD (gastroesophageal reflux disease): Qualifiers: Esophagitis presence: without esophagitis Qualified Code(s): K21.9 - Gastro-esophageal reflux disease without esophagitis Code(s): K21.9 - Gastro-esophageal reflux disease without esophagitis Status: Chronic Assessment and Plan: Pepcid.
--- NOTE | 2021-03-27 10:03 | PC.NURSE ---
Blood cx are negative
== END 2021-03-21 12:30 | disposition home health service (06) ==
LOC: ANHED 14:22 → ANH3MED 14:31
PROVIDERS: Physician Assistant; Admitting Provider Internal Medicine; Emergency Provider Emergency Medicine; PCP Family Medicine; Visit Provider Family Medicine
DX: A04.72 Enterocolitis due to Clostridium difficile, not specified as recurrent (principal); E87.1 Hypo-osmolality and hyponatremia; I10 Essential (primary) hypertension; E78.5 Hyperlipidemia, unspecified; K21.9 Gastro-esophageal reflux disease without esophagitis; A41.9 Sepsis, unspecified organism
CPT/HCPCS: 36415; 74177; 80048; 80053; 81003; 83690; 83735; 85025; 85027; 87040; 96360; 96361; 96372; 99285; A9270; G0378; J1650; J7030; Q9967

== ENCOUNTER 2021-05-21 07:38 | Inpatient (IN) | payer MEDICARE, SELFPAY ==
[2021-05-21] VITALS (37 sets, daily range): BP systolic 101–132; BP diastolic 41–60; PULSE 18–112; RESP 11–96; TEMP 36.4–37.8; O2SAT 94–100; BMI 26.2; BMI 26.7
--- NOTE | ~2021-05-21 | US_ITS ---
EXAMINATION: US abdomen limited DATE: 05/21/2021 14:52 INDICATION: Elevated liver function tests TECHNIQUE: Multiple grayscale and Doppler ultrasound images of the abdomen were obtained. COMPARISON: None FINDINGS: The pancreatic head and body are normal in appearance. The pancreatic tail is not visualized. Gallbl adder is not visualized and reportedly surgically absent. Common bile duct measures 5 mm diameter whi ch is normal. Liver has normal echogenicity and contour, with a smooth surface. 2.6 cm anechoic cyst in the right hepatic lobe. Mild central intrahepatic biliary duct dilation which is within normal reese its post cholecystectomy. Portal venous flow was seen in the hepatopetal, normal direction and has no rmal Doppler waveform. IMPRESSION: 1. Chronic mild central intrahepatic biliary ductal dilation with normal caliber common bile duct whi ch is within normal limits post cholecystectomy. Reviewed, dictated and finalized at location B. IMPRESSION: 1. Chronic mild central intrahepatic biliary ductal dilation with normal calibe r common bile duct which is within normal limits post cholecystectomy.
--- NOTE | ~2021-05-21 | CT_ITS ---
EXAMINATION: CT brain wo con DATE: 05/21/2021 10:20 INDICATION: Syncope. TECHNIQUE: Computed tomography (CT) of the head was performed without intravenous contrast. The mA wa s adjusted according to patient size. Iterative reconstruction technique was employed. The dose-lengt h product was 1135.00 mGy-cm. COMPARISON: Head CT 02/22/2021 FINDINGS: There is no intracranial hemorrhage, acute infarction, or abnormal intracranial mass lesion . There are scattered areas of low attenuation in the cerebral white matter, which is within normal l imits for the patient's age. The ventricles are normal in size. There are likely changes of ocular le ns replacement surgeries. There is mild mucosal thickening in the ethmoid sinuses. The mastoid air ce lls are normal. IMPRESSION: 1. Normal aging brain. Reviewed, dictated and finalized at location A. IMPRESSION: 1. Normal aging brain.
--- NOTE | ~2021-05-21 | CT_ITS ---
EXAMINATION: CT facial & cervical spine wo DATE: 05/21/2021 10:20 INDICATION: Head injury. Facial pain. Syncope. TECHNIQUE: Computed tomography (CT) of the maxillofacial region and cervical spine was performed with out intravenous contrast. Automated exposure control and iterative reconstruction technique were empl oyed. The dose-length product was 127.56 mGy-cm. COMPARISON: Sinuses CT 02/14/2021 FINDINGS: MAXILLOFACIAL CT: There are likely changes of ocular lens replacement surgeries. There is mild mucosal thickening in th e paranasal sinuses. Bone alignment is normal. No fracture. There is soft tissue gas anterior to the mandible correlating with the history of lip laceration. No radiopaque foreign body. Dental disease i s noted. CERVICAL SPINE CT: There is mild scarring at the lung apices. The thyroid demonstrates heterogeneous attenuation, consis tent with multinodular goiter. There is 2 mm retrolisthesis of C3 on C4 and C5 on C6. Vertebral body heights are normal. There is severely decreased disc height at C3-C4, moderately decreased disc heigh t at C4-C5, and severely decreased disc height at C5-C6 with endplate remodeling. The following disc levels are specifically discussed: C2-C3: There is no uncovertebral joint osteoarthritis. There is moderate right and severe left facet joint osteoarthritis. There is no neural foraminal stenosis. There is no central canal stenosis. C3-C4: There is severe right and mild left uncovertebral joint osteoarthritis. There is mild bilatera l facet joint osteoarthritis. There is no neural foraminal stenosis. There is mild central canal sten osis. C4-C5: There is severe right and mild left uncovertebral joint osteoarthritis. There is mild bilatera l facet joint osteoarthritis. There is mild right neural foraminal stenosis. There is no central angel l stenosis. C5-C6: There is severe bilateral uncovertebral joint osteoarthritis. There is mild bilateral facet demi int osteoarthritis. There is mild bilateral neural foraminal stenosis. There is mild central canal st enosis. C6-C7: There is moderate right and mild left uncovertebral joint osteoarthritis. There is severe bila teral facet joint osteoarthritis. There is mild bilateral neural foraminal stenosis. There is mild ce ntral canal stenosis. C7-T1: There is no uncovertebral joint osteoarthritis. There is severe bilateral facet joint osteoart hritis. There is mild bilateral neural foraminal stenosis. There is no central canal stenosis. IMPRESSION: 1. No fracture. 2. Severe cervical spondylosis. Reviewed, dictated and finalized at location A.
--- NOTE | ~2021-05-21 | XR_ITS ---
XR chest 1V portable DATE: 05/21/2021 09:21 INDICATION: Syncope. Fall. Neck pain. TECHNIQUE: Portable upright AP chest on 05/21/2021 at 0917 hours COMPARISON: 02/27/2021 PA and lateral chest FINDINGS: The cardiac and mediastinal silhouettes are unremarkable. No hilar enlargement. There is mi ld discoid atelectasis or scarring in the left lower lung. No pulmonary infiltrate or consolidation, pleural effusion or pulmonary vascular congestion or pneumothorax is detected. Diffuse osteopenia. IMPRESSION: Mild discoid atelectasis or scarring in the left lower lobe; otherwise no active cardiopu lmonary disease Reviewed, dictated and finalized at location A. IMPRESSION: Mild discoid atelectasis or scarring in the left lower lobe; otherw ise no active cardiopulmonary disease
--- NOTE | ~2021-05-21 | CT_ITS ---
EXAMINATION: CT abdomen pelvis w con DATE: 05/21/2021 10:20 INDICATION: C. Difficile colitis presenting with diarrhea, fever and chills. TECHNIQUE: Computed tomography (CT) of the abdomen and pelvis was performed with 100 mL Omnipaque-350 intravenous contrast. Automated exposure control and iterative reconstruction technique were employe d. The dose-length product was 579.73 mGy-cm. COMPARISON: 03/18/2021 FINDINGS: Mild left basilar atelectasis/scarring. Heart size is normal. Atherosclerotic coronary artery calcifi cation. No pericardial or pleural effusion. Small sliding-type hiatal hernia. Unchanged 2.7 cm cyst a t the dome of the liver. Unchanged mild central intrahepatic biliary ductal dilation likely related t o prior cholecystectomy. Air-fluid level within a 2.4 cm duodenal diverticulum situated along the med ial side of the head of the pancreas. Pancreas, spleen, bilateral adrenal glands and kidneys are norm al. Again seen is diffuse wall thickening of the colon extending from the rectum to the cecum consist ent with pancolitis. There are few scattered sigmoid diverticula without adjacent inflammatory strand ing to suggest diverticulitis. Normal small bowel and appendix. No pneumatosis, abscess or free intra peritoneal gas or fluid. Bladder is normal. The uterus is not identified and has likely been surgical ly resected. Mild lumbar levocurvature with mild to moderate spondylosis. 4 mm left and anterior list hesis of L4 on L5. Severe lower thoracic spondylosis. IMPRESSION: 1. Pancolitis which could be infectious, inflammatory or ischemic in etiology. Reviewed, dictated and finalized at location B.
[2021-05-21 08:43] LABS: Basophils Percent Auto 0.2 % (0.2-1.2); Hematocrit 43.8 % (37.0-47.0); Hemoglobin 14.4 g/dL (12.0-15.0); Immature Granulocyte Absolute 0.06 K/mm3 (0.00-0.031); Immature Granulocyte Percent A 0.4 % (0-0.5); Lymphocytes Absolute Auto 1.45 K/mm3 (0.9-3.2); Lymphocytes Percent Auto 8.8 % (18.3-44.2); Mean Corpuscular HGB Conc 32.9 g/dl (32-36); Mean Corpuscular Hemoglobin 30.3 pg (26-34); Mean Corpuscular Volume 92.2 fl (80-100); Mean Platelet Volume 9.2 fl (7.4-10.4); Monocytes Absolute Auto 1.1 K/mm3 (0.1-0.6); Monocytes Percent Auto 6.9 % (2.6-8.5); Neutrophils Absolute Auto 13.8 K/mm3 (1.3-6.7); Neutrophils Percent Auto 83.7 % (45.5-73.1); Platelet Count Result 247 k/mm3 (150-375); Red Blood Count 4.75 M/mm3 (4.2-5.4); Red Cell Distribution Width 12.6 % (11.5-14.5); White Blood Count 16.5 K/mm3 (4.5-10.0)
[2021-05-21 09:01] LABS: Anion Gap 11 mmol/L (8-16); Blood Urea Nitrogen 13 mg/dL (7-17); Calcium 9.2 mg/dL (8.4-10.2); Carbon Dioxide 24 mmol/L (22-30); Chloride 101 mmol/L (98-107); Estimated CRCL calculation 36 ml/min; Estimated Glomerular Filt Rate > 60; Glucose 181 mg/dL (65-110); Potassium 3.6 mmol/L (3.4-5.0); Sodium 136 mmol/L (137-145)
[2021-05-21 09:03] LABS: Alanine Aminotransferase 319 U/L (4-35); Albumin Level 4.5 g/dL (3.5-5.1); Alkaline Phosphatase 96 U/L (38-126); Aspartate Amino Transferase 523 U/L (14-36); Bilirubin,Total 1.2 mg/dL (0.2-1.3); Lipase 69 U/L (23-300)
--- NOTE | 2021-05-21 09:08 | ECG_ITS ---
Measurements Intervals Russell Rate: 85 P: -7 OR: 170 QRS: 31 QRSD: 86 T: -1 QT: 363 QTc: 433 Interpretive Statements SINUS RHYTHM BORDERLINE T WAVE ABNORMALITY- ANTERIOR LEADS BASELINE ARTIFACT- II, III, AVR, AVL, AVF BORDERLINE ECG Electronically Signed On 05-21-2021 11:27:55 CDT by Jaxson Bill D.O.
--- NOTE | 2021-05-21 09:59 | ED.NAVMDI ---
HPI - Nausea/Vomiting/Diarrhea General Chief complaint: Nausea/Vomiting/Diarrhea <Carrie Nelson PA-C - Last Filed: 05/21/21 12:53> Stated complaint: Diarrhea <PORSHA Barksdale Last Filed: 05/21/21 12:53> Time Seen by Provider: 05/21/21 09:08 <PORSHA Barksdale Last Filed: 05/21/21 12:53> Source: patient <PORSHA Barksdale Last Filed: 05/21/21 12:53> Mode of arrival: wheelchair <PORSHA Barksdale Last Filed: 05/21/21 12:53> Limitations: no limitations <PORSHA Barksdale Last Filed: 05/21/21 12:53> History of Present Illness HPI Narrative: This is a 76-year-old female that presents to the emergency department for diarrhea over the last couple of days. Reports she has recently had 2 episodes of C. difficile colitis. She finished a antibiotic taper of vancomycin about 3 weeks ago. She had been feeling better until the last couple of days. Reports multiple episodes of liquid diarrhea. Reports crampy abdominal pain. Also reports fevers. Reports this morning she was feeling very nauseous and lightheaded. She got herself to the floor because she felt like she was going to pass out. She then passed out. Reports hitting her face on the floor. Reports bruising to her chin and some lacerations on the inside of her lip. She is unsure of her last tetanus vaccine. Reports a prior similar episode. Denies vision changes, vomiting, chest pain or shortness of breath. <PORSHA Barksdale Last Filed: 05/21/21 12:53> Related Data Home medications: Home Medications Medication Instructions Recorded Confirmed Adult Probiotic 3,000 mmu cells PO DAILY 03/17/20 04/13/21 Multivitamin Women 50 Plus 1 tablet PO DAILY 03/17/20 04/13/21 atorvastatin 20 mg PO DAILY 03/17/20 04/13/21 biotin 5,000 mcg SUBLINGUAL DAILY 03/17/20 04/13/21 cholecalciferol (vitamin D3) 75 mcg PO DAILY 03/17/20 04/13/21 coenzyme Q10 [Co Q-10] 200 mg PO DAILY 03/17/20 04/13/21 flaxseed oil 1,000 mg PO DAILY 03/17/20 04/13/21 metoprolol succinate 25 mg PO DAILY 03/17/20 04/13/21 turmeric 500 mg PO DAILY 03/17/20 04/13/21 vitamin K2 100 mcg capsule 100 mcg PO DAILY 09/28/20 04/13/21 zinc acetate 50 mg (zinc) capsule 50 mg PO DAILY 09/28/20 04/13/21 famotidine 20 mg PO BID 03/18/21 04/13/21 witch rose leaf (hamamelis) 1 applic TOPICAL BID PRN 03/18/21 04/13/21 <Carrie Nelson PA-C - Last Filed: 05/21/21 12:53> Allergies/Adverse reactions: Allergies Allergy/AdvReac Type Severity Reaction Status Date / Time No Known Allergies Allergy Verified 04/13/21 11:53 <Carrie Nelson PA-C - Last Filed: 05/21/21 12:53> Review of Systems Review of Systems: CONSTITUTIONAL: Denies fever CARDIOVASCULAR: Denies chest pain, palpitations, or edema. RESPIRATORY: Denies dyspnea. GASTROINTESTINAL: Reports abdominal pain, diarrhea. Denies nausea, vomiting GENITOURINARY: Denies dysuria NEUROLOGIC: Denies headache, numbness, or weakness. <Carrie Nelson PA-C - Last Filed: 05/21/21 12:53> All systems reviewed & are unremarkable except as noted in HPI and below <Carrie Nelson PA-C - Last Filed: 05/21/21 12:53> FORMERLY [facility] Past Medical History Medical History: Medical History (Updated 05/21/21 @ 12:32 by Joann Calero PA-C) Adenomatous colon polyp Clostridium difficile colitis Endometriosis Gastroesophageal reflux disease Hyperlipidemia Hypertension Irritable bowel syndrome with diarrhea Mitral valve prolapse Recurrent sinus infections Recurrent UTI <Carrie Nelson PA-C - Last Filed: 05/21/21 12:53> Surgical History Surgical History: Surgical History (Updated 05/21/21 @ 12:29 by Joann Calero PA-C) History of arthroscopy of left knee History of bilateral cataract extraction (2018) History of cholecystectomy (2012) History of colonoscopy with polypectomy History of hysterectomy (1980) History of radiofrequency ablation (RFA) procedure for cardiac arrhythmi
[2021-05-21 10:08] LABS: Lactic Acid Reflex 1.1 mmol/L (0.7-2.1)
[2021-05-21 11:03] LABS: Add Urine Microscopic? YES; Appearance Urine Clear (Clear); Bacteria Urine Trace /hpf; Bilirubin Urine Negative (Negative); Blood Urine 2+ (Negative); Color Urine Amber (Yellow); Glucose Urine UA Negative (Negative); Ketones Urine Trace mg/dL (Negative); Leukocyte Esterase Ur 2+ LEU/UL (Negative); Mucus Urine Heavy /lpf; Nitrate Urine Positive (Negative); Protein Urine 2+ mg/dL (Negative); Transitional Epi Cells Urine Rare /hpf (None Seen); Urobilinogen Urine Negative mg/dL (<2.0); WBC Urine 51-75 /hpf
[2021-05-21 11:07] LABS: Specific Grav Ur 1.042 (1.001-1.035)
[2021-05-21] MEDS: ONDANSETRON INJ 4 MG/2 ML VIAL IV PUSH (11:13)
[2021-05-21] MEDS: MORPHINE SULFATE (*CRX) 2 MG/ML INJ IV PUSH (11:14)
[2021-05-21] MEDS: SODIUM CHLORIDE 0.9% IV 1,000 ML 999 ML IV CONT (11:14)
[2021-05-21] MEDS: TETANUS,DIPHTHERIA,AC PERTUSSIS ADULT (0.5 ML) BOOSTRIX IM (11:48)
--- NOTE | 2021-05-21 12:45 | PM.IMHP ---
H&P: HPI History of Present Illness Date/Time: 05/21/21 12:45 Chief Complaint: Diarrhea. Narrative: This is a very pleasant 76-year-old female with history of Clostridium difficile colitis who presented to the emergency department earlier today for evaluation of diarrhea. She was not feeling well yesterday with subjective fever, chills, nausea, and 1 episode of emesis and this morning at around 04:00 began having diarrhea. Patient reports having in numerous bouts of watery diarrhea with cramping abdominal pain for several hours. With each bowel movement she felt increasingly more weak to the point where she was feeling lightheaded and dizzy. She went to lay down as she was worried that she may lose consciousness however she was not able to get to the floor before she lost consciousness, hitting her chin on the floor and causing laceration to her lip. As mentioned she does have a history of C diff in February 2021 and she was hospitalized for the same x2 over the summer. She was placed on a long taper of p.o. vancomycin and finished that about 6 weeks ago. For approximately 3 weeks after she finished that taper she felt great though she had a couple of days where she had diarrhea. Unfortunately she believes that the C diff is back as her symptoms 3rd day or the exact same that she was experiencing with her previous hospitalization. She has not traveled recently and denies sick contacts. She has not been on any recent antibiotics aside from the p.o. vancomycin weeks ago. At the time my evaluation she is a bit despondent as she is just so worn out and is disheartened that she is once again having diarrhea. She is not having any nausea at this time and fact she reports being hungry and she is asking for food. No cold or flu symptoms. No chest pain or shortness of breath. No cough. She denies blood in the stool. No dysuria. Review of Systems Review of Systems: Twelve systems were reviewed with pertinent positives and negatives as per HPI. Except as documented, all other systems were reviewed and are negative. FOR[facility]LY [facility] Past Medical History Medical History (Updated 05/21/21 @ 22:57 by Joann Calero PA-C) Adenomatous colon polyp Clostridium difficile colitis (02/2021) Endometriosis Gastroesophageal reflux disease Hyperlipidemia Hypertension Irritable bowel syndrome with diarrhea Mitral valve prolapse Recurrent sinus infections Recurrent UTI Surgical History Surgical History (Updated 05/21/21 @ 22:57 by Joann Calero PA-C) History of arthroscopy of left knee History of bilateral cataract extraction (2017) History of cholecystectomy (2012) History of colonoscopy with polypectomy History of hysterectomy (1980) History of radiofrequency ablation (RFA) procedure for cardiac arrhythmia (2014) Family History Family History Father Heart disease Acute myocardial infarction Mother , found after knee replacement Heart disease Acute myocardial infarction Anaphylactic reaction due to administration of blood and blood products Sibling , Sister Heart disease COPD (chronic obstructive pulmonary disease) Asthma Social History Social History (Updated 05/21/21 @ 22:57 by Joann Calero PA-C) Social History: . Shares a home with her in [place]. No alcohol, tobacco, or illicit substance use. Surrogate decision maker: Parish lewis, spouse. Code status: Full code. Meds Home Medications and Allergies Home Medications Medication Instructions Recorded Confirmed Type Adult Probiotic 3,000 mmu cells PO DAILY 03/17/20 05/21/21 History Multivitamin Women 50 Plus 1 tablet PO DAILY 03/17/20 05/21/21 History atorvastatin 20 mg PO DAILY 03/17/20 05/21/21 History biotin 5,000 mcg SUBLINGUAL DAILY 03/17/20 05/21/21 History cholecalciferol (vitamin D3) 75 mcg PO DAILY 03/17/20 05/21/21 History flaxseed oil 1,000 mg PO DAILY 03/17/20
[2021-05-21 12:50] LABS: Troponin I < 0.012 ng/mL (0.000-0.034)
[2021-05-21 15:42] LABS: INR 1.1; Prothrombin Time 14.1 Seconds (11.1-14.7)
[2021-05-21 15:43] LABS: Partial Thromboplastin Time 27.4 SECONDS (22.3-36.8)
--- NOTE | 2021-05-21 16:02 | ADMGEN ---
This patient, Serina Jaramillo, was admitted to [facility] Surg Room 317-02. Patient/family oriented to hospital policies and general routines including ID bracelet, bed and alarms, visiting hours, pain management, procedures, bathroom and other care routines, personal items, smoking policy, room service/diet, and visiting hours. Information on how to activate the Rapid Response Team has been discussed. Patient/Family are encouraged to report perceived risks to care and to ask questions if they do not understand what they are told or what they should do.
[2021-05-21 16:38] LABS: Hepatitis B Surface Antigen Negative (Negative)
[2021-05-21 16:44] LABS: HAV RESULT Negative (Negative); Hepatitis B Core IgM Result Negative (Negative)
[2021-05-21 16:56] LABS: Hepatitis C Virus Antibody Negative (Negative)
[2021-05-21 19:46] LABS: Acetaminophen < 10 ug/mL (10-30)
[2021-05-21] MEDS: ACETAMINOPHEN 325 MG TABLET 650 MG PO (20:24)
[2021-05-21] MEDS: SODIUM CHLORIDE 0.9% IV 1,000 ML 100 ML IV CONT (20:34)
[2021-05-21] MEDS: metroNIDAZOLE 500 MG/ISO 100ML 500 MG/100 ML BAG 100 MG IVPB (20:38)
[2021-05-21] MEDS: FIDAXOMICIN 200 MG TABLET PO (20:39)
[2021-05-22] VITALS (10 sets, daily range): BP systolic 113–137; BP diastolic 47–58; PULSE 87–100; RESP 16–20; TEMP 36.4–38.1; O2SAT 95–99; BMI 26.4
[2021-05-22] MEDS: metroNIDAZOLE 500 MG/ISO 100ML 500 MG/100 ML BAG 100 MG IVPB ×4 (01:51→21:13)
[2021-05-22 06:46] LABS: Hematocrit 37.7 % (37.0-47.0); Mean Corpuscular HGB Conc 31.8 g/dl (32-36); Mean Corpuscular Volume 94.3 fl (80-100); Mean Platelet Volume 9.7 fl (7.4-10.4); Platelet Count Result 200 k/mm3 (150-375); Red Cell Distribution Width 12.6 % (11.5-14.5); White Blood Count 11.6 K/mm3 (4.5-10.0)
[2021-05-22 06:57] LABS: Alanine Aminotransferase 180 U/L (4-35); Albumin Level 3.5 g/dL (3.5-5.1); Alkaline Phosphatase 77 U/L (38-126); Anion Gap 6 mmol/L (8-16); Aspartate Amino Transferase 145 U/L (14-36); Bilirubin,Total 0.7 mg/dL (0.2-1.3); Blood Urea Nitrogen 8 mg/dL (7-17); Calcium 8.5 mg/dL (8.4-10.2); Carbon Dioxide 26 mmol/L (22-30); Chloride 105 mmol/L (98-107); Estimated CRCL calculation 52 ml/min; Estimated Glomerular Filt Rate > 60; Glucose 110 mg/dL (65-110); Magnesium 1.9 mg/dL (1.6-2.3); Potassium 3.5 mmol/L (3.4-5.0); Sodium 137 mmol/L (137-145)
[2021-05-22] MEDS: SODIUM CHLORIDE 0.9% IV 1,000 ML 100 ML IV CONT ×2 (09:29→13:56)
[2021-05-22] MEDS: POTASSIUM CHLORIDE 10 MEQ TABLET.ER PO ×2 (09:30→16:40)
[2021-05-22] MEDS: SACCHAROMYCES BOULARDII 250 MG CAPSULE PO ×2 (09:30→16:40)
[2021-05-22] MEDS: FIDAXOMICIN 200 MG TABLET PO ×2 (09:30→21:13)
[2021-05-22] MEDS: ASPIRIN 81 MG CHEWABLE TABLET PO (09:30)
[2021-05-22] MEDS: METOPROLOL SUCCINATE EXT REL 25 MG TABCR PO (09:33)
--- NOTE | 2021-05-22 10:38 | WPDGICN ---
Assessment and Plan Assessment and plan (1) Recurrent colitis due to Clostridium difficile: Code(s): A04.71 - Enterocolitis due to Clostridium difficile, recurrent Status: Acute Assessment and Plan: Patient has had several recurrent episodes of C difficile colitis. Now admitted the hospital with a fever along with elevated LFTs consistent with sepsis. Plan is for IV Flagyl along with oral Dificid. Likely she will require long-term suppressive doses of medication after discharge. She states the dose of Dificid with extremely expensive in unaffordable. The time of discharge we may want to continue vancomycin. Previously she has failed several courses of tapering doses of vancomycin. I have discussed with her the possibility of fecal transplantation which may iron appy feasible at this point. Will follow with you during this hospital stay. (2) Transaminitis: Code(s): R74.01 - Elevation of levels of liver transaminase levels Status: Acute Assessment and Plan: Elevated serum transaminases identified to the 500 range. Likely related to sepsis. Previous workup unremarkable. Current CT scan and ultrasound revealed previous cholecystectomy. Supportive care monitoring liver function tests suggested for now. (3) Facial bruising: Code(s): S00.83XA - Contusion of other part of head, initial encounter Status: Acute Assessment and Plan: Patient has significant ecchymoses on the jaw after recent fall. Continued supportive care extensive x-ray testing reveals no fracture currently. GI Consult Note Consult date/time: 05/22/21 10:38 HPI: Serina Jaramillo is a 76 year old female I am asked to see because of recurrent C difficile colitis. Patient initially seen while hospitalized in February of this year with ongoing diarrhea found to have C difficile colitis. At that time she was discharged home on a tapering dose of vancomycin. She states the diarrhea did subsequently improved. However promptly recurred after discontinuing the vancomycin. She subsequently was rehospitalized for several days and restarted on vancomycin. She did well until once again stopping the vancomycin. She has had recurrent diarrhea for 1 week and has developed abdominal pain and a fever. She has had significant diarrhea over the last week. Last evening apparently was on the commode and fell to the ground and hit her face with subsequent ecchymoses on her jaw. After admission the hospital found to have elevated LFTs. Similar to her admission in February. Review of Systems Review of Systems: All systems reviewed & are unremarkable except as noted in HPI and below PMFSH Past Medical History Medical History (Updated 05/22/21 @ 10:41 by Ranulfo Strickland MD) Adenomatous colon polyp Clostridium difficile colitis (02/2021) Endometriosis Gastroesophageal reflux disease Hyperlipidemia Hypertension Irritable bowel syndrome with diarrhea Mitral valve prolapse Recurrent sinus infections Recurrent UTI Surgical History Surgical History (Updated 05/21/21 @ 22:57 by Joann Calero PA-C) History of arthroscopy of left knee History of bilateral cataract extraction (2017) History of cholecystectomy (2012) History of colonoscopy with polypectomy History of hysterectomy (1980) History of radiofrequency ablation (RFA) procedure for cardiac arrhythmia (2014) Family History Family History Father Heart disease Acute myocardial infarction Mother , found after knee replacement Heart disease Acute myocardial infarction Anaphylactic reaction due to administration of blood and blood products Sibling , Sister Heart disease COPD (chronic obstructive pulmonary disease) Asthma Social History Social History (Updated 05/21/21 @ 22:57 by Joann Calero PA-C) Social History: . Shares a home with her in [facility]
[2021-05-22 15:39] LABS: IFOB Positive Control Positive; Immunochemical Fecal Occult Bl Positive (N)
[2021-05-22] MEDS: CHOLESTYRAMINE LIGHT 4 GM POWD.PACK PO (16:40)
--- NOTE | 2021-05-22 16:51 | P.PNIM_ITS ---
Progress Note: A&P Assessment and Plan (1) Colitis: Code(s): K52.9 - Noninfective gastroenteritis and colitis, unspecified Status: Acute Assessment and Plan: * CT of the abdomen and pelvis shows weber colitis recurrence of C diff. * Fever reported at 102.9 * Started on flagyl and fidaomicin * Stool cultures pending * Dr. Strickland was consulted and his input is appreciated. * reports 5-6 this am and several this afternoon (2) Diarrhea: Code(s): R19.7 - Diarrhea, unspecified Status: Acute Assessment and Plan: * See above (3) Transaminitis: Code(s): R74.01 - Elevation of levels of liver transaminase levels Status: Acute Assessment and Plan: * LFTs are elevated AST 145, ALT 180 * Probably related to infection * Trend labs * Acetaminophen level was undetectable ] * hepatitis panel was negative. * Coags were within normal limits. (4) UTI (urinary tract infection): Code(s): N39.0 - Urinary tract infection, site not specified Status: Acute Assessment and Plan: * UA showed 2+ blood, positive nitrate, 2+ leukocyte esterase, white blood cell 51-75, heavy mucus * Urine culture found gram-negative bacilli * Sensitivities not reported * Will start patient on ceftriaxone * Tailor antibiotics to sensitivities (5) Acute kidney injury: Code(s): N17.9 - Acute kidney failure, unspecified Status: Acute Assessment and Plan: * BUN and creatinine 13/0.9 upon admission * Currently 8/0.7 * Probably related to dehydration, UTI, diarrhea * Rehydration with IV fluids * Monitor I&Os (6) Dehydration: Code(s): E86.0 - Dehydration Status: Acute Assessment and Plan: * see above (7) Abnormal urinalysis: Code(s): R82.90 - Unspecified abnormal findings in urine Status: Acute Assessment and Plan: * See above (8) Syncope: Qualifiers: Syncope type: unspecified Qualified Code(s): R55 - Syncope and collapse Code(s): R55 - Syncope and collapse Status: Acute Assessment and Plan: * syncopal episode due to significant volume loss given her diarrhea causing a drop in blood pressures. * Cardiac dysrhythmia is not likely thus I do not feel it is necessary to monitor her on telemetry. Time Spent With Patient Time with patient: 25 - 35 minutes Subjective Date/time seen: 05/22/21 15:00 Interval history: Patient is a 76-year-old female who is here for diarrhea and s yncope. Patient stated that symptoms really started shortly after coming off of the antibiotics. Patient just finished a course of vancomycin p.o. for 6 weeks and has been done with them for 3 weeks. She stated that when she went off the medications that she started her course of vomiting accompany with chills that changed into fevers. Patient stated that she had 102.9 temperature which then w ent to sweats and diarrhea. She stated she was on the toilet when she was short her hands out and fell forward blacking out. Today she states she still having a lot of diarrhea about 5-6 episodes this a.m. and several this afternoon. She does say that she knows when they are coming however she just does not always make it to the bathroom on time. Patient denies chest pain, shortness of breath, weakness, fatigue, sweats fevers and chills. Patient did state that she is having some pain with palpitation of her right left upper q
--- NOTE | 2021-05-22 16:51 | PM.IMPN ---
Progress Note: A&P Assessment and Plan (1) Colitis: Code(s): K52.9 - Noninfective gastroenteritis and colitis, unspecified Status: Acute Assessment and Plan: CT of the abdomen and pelvis shows weber colitis recurrence of C diff. Fever reported at 102.9 Started on flagyl and fidaomicin Stool cultures pending Dr. Strickland was consulted and his input is appreciated. reports 5-6 this am and several this afternoon (2) Diarrhea: Code(s): R19.7 - Diarrhea, unspecified Status: Acute Assessment and Plan: See above (3) Transaminitis: Code(s): R74.01 - Elevation of levels of liver transaminase levels Status: Acute Assessment and Plan: LFTs are elevated AST 145, ALT 180 Probably related to infection Trend labs Acetaminophen level was undetectable ] hepatitis panel was negative. Coags were within normal limits. (4) UTI (urinary tract infection): Code(s): N39.0 - Urinary tract infection, site not specified Status: Acute Assessment and Plan: UA showed 2+ blood, positive nitrate, 2+ leukocyte esterase, white blood cell 51-75, heavy mucus Urine culture found gram-negative bacilli Sensitivities not reported Will start patient on ceftriaxone Tailor antibiotics to sensitivities (5) Acute kidney injury: Code(s): N17.9 - Acute kidney failure, unspecified Status: Acute Assessment and Plan: BUN and creatinine 13/0.9 upon admission Currently 8/0.7 Probably related to dehydration, UTI, diarrhea Rehydration with IV fluids Monitor I&Os (6) Dehydration: Code(s): E86.0 - Dehydration Status: Acute Assessment and Plan: see above (7) Abnormal urinalysis: Code(s): R82.90 - Unspecified abnormal findings in urine Status: Acute Assessment and Plan: See above (8) Syncope: Qualifiers: Syncope type: unspecified Qualified Code(s): R55 - Syncope and collapse Code(s): R55 - Syncope and collapse Status: Acute Assessment and Plan: syncopal episode due to significant volume loss given her diarrhea causing a drop in blood pressures. Cardiac dysrhythmia is not likely thus I do not feel it is necessary to monitor her on telemetry. Time Spent With Patient Time with patient: 25 - 35 minutes Subjective Date/time seen: 05/22/21 15:00 Interval history: Patient is a 76-year-old female who is here for diarrhea and syncope. Patient stated that symptoms really started shortly after coming off of the antibiotics. Patient just finished a course of vancomycin p.o. for 6 weeks and has been done with them for 3 weeks. She stated that when she went off the medications that she started her course of vomiting accompany with chills that changed into fevers. Patient stated that she had 102.9 temperature which then went to sweats and diarrhea. She stated she was on the toilet when she was short her hands out and fell forward blacking out. Today she states she still having a lot of diarrhea about 5-6 episodes this a.m. and several this afternoon. She does say that she knows when they are coming however she just does not always make it to the bathroom on time. Patient denies chest pain, shortness of breath, weakness, fatigue, sweats fevers and chills. Patient did state that she is having some pain with palpitation of her right left upper quadrant. And did report some urgency and frequency with urination. Review of Systems Review of Systems: All systems reviewed & are unremarkable except as noted in HPI and below Exam Const: General: cooperative, healthy appearing, no acute distress, well developed, alert and awake Nutritional Appearance: well nourished Orientation/consciousness: patient oriented x3 Limitations: no limitations HENMT: Head: normal to inspection Ears: hearing grossly normal bilaterally General n
[2021-05-23] VITALS (9 sets, daily range): BP systolic 109–138; BP diastolic 46–62; PULSE 76–89; RESP 16–18; TEMP 36.2–36.9; O2SAT 96–100
[2021-05-23] MEDS: metroNIDAZOLE 500 MG/ISO 100ML 500 MG/100 ML BAG 100 MG IVPB ×4 (02:45→20:00)
[2021-05-23 06:44] LABS: Basophils Percent Auto 0.3 % (0.2-1.2); Eosinophils Absolute Auto 0.1 K/mm3 (0-0.3); Eosinophils Percent Auto 0.7 % (0-4.4); Hematocrit 35.9 % (37.0-47.0); Hemoglobin 11.6 g/dL (12.0-15.0); Immature Granulocyte Absolute 0.05 K/mm3 (0.00-0.031); Immature Granulocyte Percent A 0.5 % (0-0.5); Lymphocytes Absolute Auto 1.56 K/mm3 (0.9-3.2); Lymphocytes Percent Auto 15.7 % (18.3-44.2); Mean Corpuscular HGB Conc 32.3 g/dl (32-36); Mean Corpuscular Hemoglobin 30.2 pg (26-34); Mean Corpuscular Volume 93.5 fl (80-100); Mean Platelet Volume 10.1 fl (7.4-10.4); Monocytes Percent Auto 9.8 % (2.6-8.5); Neutrophils Absolute Auto 7.3 K/mm3 (1.3-6.7); Platelet Count Result 194 k/mm3 (150-375); Red Blood Count 3.84 M/mm3 (4.2-5.4); Red Cell Distribution Width 12.6 % (11.5-14.5); White Blood Count 9.9 K/mm3 (4.5-10.0)
[2021-05-23 06:54] LABS: Alanine Aminotransferase 104 U/L (4-35); Albumin Level 3.3 g/dL (3.5-5.1); Alkaline Phosphatase 71 U/L (38-126); Anion Gap 3 mmol/L (8-16); Aspartate Amino Transferase 59 U/L (14-36); Bilirubin,Total 0.3 mg/dL (0.2-1.3); Blood Urea Nitrogen 5 mg/dL (7-17); Calcium 8.4 mg/dL (8.4-10.2); Carbon Dioxide 29 mmol/L (22-30); Chloride 105 mmol/L (98-107); Estimated CRCL calculation 52 ml/min; Estimated Glomerular Filt Rate > 60; Glucose 119 mg/dL (65-110); Potassium 3.3 mmol/L (3.4-5.0); Sodium 137 mmol/L (137-145)
[2021-05-23] MEDS: ASPIRIN 81 MG CHEWABLE TABLET PO (08:05)
[2021-05-23] MEDS: FIDAXOMICIN 200 MG TABLET PO ×2 (08:05→22:28)
[2021-05-23] MEDS: SACCHAROMYCES BOULARDII 250 MG CAPSULE PO ×2 (08:06→17:11)
[2021-05-23] MEDS: POTASSIUM CHLORIDE 10 MEQ TABLET.ER PO ×2 (08:06→19:45)
[2021-05-23] MEDS: METOPROLOL SUCCINATE EXT REL 25 MG TABCR PO (08:06)
--- NOTE | 2021-05-23 11:14 | WPDGIPROGNO ---
Progress Note: A&P Assessment and Plan (1) Clostridium difficile colitis: Onset Date: 02/2021 Code(s): A04.72 - Enterocolitis due to Clostridium difficile, not specified as recurrent Status: Acute Assessment and Plan: Stool cultures reveal C difficile toxin test not performed for unclear reasons. Clinically patient has C difficile colitis. Clinically beginning to show signs of improvement. LFTs have trended towards normal. Similar to similar experience in February. Attribute this to sepsis. Patient also has had decline in her peripheral white count. Still has abdominal pain and diarrhea. Plan to continue Questran. IV Flagyl and oral Dificid. Advance diet as tolerated. She will need to stay in the hospital till diarrhea has improved so that she will become dehydrated and diet tolerated. (2) Facial bruising: Code(s): S00.83XA - Contusion of other part of head, initial encounter Status: Acute (3) Transaminitis: Code(s): R74.01 - Elevation of levels of liver transaminase levels Status: Acute Assessment and Plan: Improving consistent with sepsis improving. (4) UTI (urinary tract infection): Code(s): N39.0 - Urinary tract infection, site not specified Status: Acute Assessment and Plan: patient appears to also have a concomitant urinary tract infection. Now on antibiotics for this. Subjective Date/time seen: 05/23/21 11:14 Patient continues to complain of ongoing watery stools. She also complains of diffuse abdominal pain. She had she has had no fever for 24hours. Tolerating liquids. Review of Systems Review of Systems: All systems reviewed & are unremarkable except as noted in HPI and below Exam Narrative: physical exam reveals patient be alert. Vital signs stable. She is afebrile. Anicteric. Lungs are clear to auscultation and percussion. Heart is without murmur or extra sounds. Abdominal exam bowel sounds present soft mild diffuse tenderness. Extremities without clubbing cyanosis or edema. Objective Data Vital Signs Vital Signs: Vital Signs - 24 hr 05/22/21 14:15 05/22/21 14:17 05/22/21 14:19 Temperature 98.5 F Pulse Rate 93 95 98 Respiratory Rate 16 16 16 Blood Pressure 123/58 L 133/53 L 132/54 L Pulse Oximetry 99 99 99 05/22/21 19:30 05/22/21 19:33 05/22/21 19:36 Temperature 100.6 F H 99.9 F H 99.5 F Pulse Rate 93 96 100 Respiratory Rate 18 18 20 Blood Pressure 116/50 L 137/57 L 118/51 L Pulse Oximetry 95 97 97 05/22/21 21:46 05/23/21 05:30 05/23/21 08:06 Temperature 99.2 F 98.5 F Pulse Rate 93 85 88 Respiratory Rate 18 17 Blood Pressure 113/47 L 109/46 L Pulse Oximetry 96 99 Intake/Output Intake/Output: Intake & Output 05/20/21 05/21/21 05/22/21 05/23/21 23:59 23:59 23:59 23:59 Intake Total 1100 5110 470 Output Total 1800 400 Balance 1100 3310 70 Meds/Results Medications: Active Medications Generic Name Dose Route Start Last Admin Trade Name Freq PRN Reason Stop Dose Admin Aspirin 81 mg 05/22/21 08:00 05/23/21 08:05 Aspirin 81 Mg Chewable Tablet PO 81 mg DAILY@0800 SLICK Administration Cholestyramine Resin 4 gm 05/22/21 18:00 05/22/21 16:40 Cholestyramine Light 4 Gm Powd.Pack PO 4 gm BID@1000,1800 SLICK Administration Fidaxomicin 200 mg 05/21/21 21:00 05/23/21 08:05 Fidaxomicin 200 Mg Tablet PO 05/31/21 20:59 200 mg Q12HR SLICK Administration Metronidazole 500 mg in 100 mls @ 100 mls/hr 05/21/21 20:00 05/23/21 08:06 Flagyl 500 Mg/Iso Soln 100 Ml IVPB 100 mls/hr Q6H SLICK Administration Sodium Chloride 1,000 mls @ 100 mls/hr 05/21/21 19:40 05/23/21 00:00 Normal Saline Iv IV CONT 100 mls/hr .Q10H SLICK Administration Ceftriaxone Sodium/Dextrose 1 gm in 50 mls @ 100 mls/hr 05/22/21 18:00 05/22/21 19:00 Rocephin 1 Gm/D5w 50 Ml IVPB Infused Q24H SLICK Infusion Metoprolol Succinate 25 mg 05/22/21 09:00 05/23/21 08:06
[2021-05-23] MEDS: CHOLESTYRAMINE LIGHT 4 GM POWD.PACK PO ×2 (11:20→17:11)
--- NOTE | 2021-05-23 15:14 | P.PNIM_ITS ---
Progress Note: A&P Assessment and Plan (1) Clostridium difficile colitis: Onset Date: 02/2021 Code(s): A04.72 - Enterocolitis due to Clostridium difficile, not specified as recurrent Status: Acute Assessment and Plan: * CT of the abdomen and pelvis shows weber colitis recurrence of C diff. * Patient has had two other episodes of C.Diff since January of 2021 * Fever reported at 102.9 upon admission * Started on flagyl, fidaomicin, cholestyramine * Stool cultures pending * Dr. Strickland was consulted and his input is appreciated. * no change in diarrhea * C.Diff sample was not preserved, test came back inconclusive * Symptoms consistent with C.Diff * ID consult * Patient would benefit from a fecal transplant * WBC trending down (2) Colitis: Code(s): K52.9 - Noninfective gastroenteritis and colitis, unspecified Status: Acute Assessment and Plan: * CT of the abdomen and pelvis shows weber colitis recurrence of C diff. * Fever reported at 102.9 upon admission * Started on flagyl, fidaomicin, cholestyramine * Stool cultures pending * Dr. Strickland was consulted and his input is appreciated. * no change in diarrhea * C.Diff sample was not preserved, test came back inconclusive * Symptoms consistent with C.Diff * ID consult * Patient would benefit from a fecal transplant (3) Diarrhea: Code(s): R19.7 - Diarrhea, unspecified Status: Acute Assessment and Plan: * See above (4) Transaminitis: Code(s): R74.01 - Elevation of levels of liver transaminase levels Status: Acute Assessment and Plan: * LFTs are elevated AST 59, ALT 104 * Probably related to infection * Trend labs * Acetaminophen level was undetectable * hepatitis panel was negative. * Coags were within normal limits. (5) UTI (urinary tract infection): Code(s): N39.0 - Urinary tract infection, site not specified Status: Acute Assessment and Plan: * UA showed 2+ blood, positive nitrate, 2+ leukocyte esterase, white blood cell 51-75, heavy mucus * Urine culture found klebsiella pnemoniae * Sensitivities support ceftriaxone * Strict I&O (6) Acute kidney injury: Code(s): N17.9 - Acute kidney failure, unspecified Status: Acute Assessment and Plan: * BUN and creatinine 13/0.9 upon admission * Currently 5/0.7 * Probably related to dehydration, UTI, diarrhea * Rehydration with IV fluids * Monitor I&Os (7) Dehydration: Code(s): E86.0 - Dehydration Status: Acute Assessment and Plan: * see above (8) Syncope: Qualifiers: Syncope type: unspecified Qualified Code(s): R55 - Syncope and collapse Code(s): R55 - Syncope and collapse Status: Acute Assessment and Plan: * syncopal episode due to significant volume loss given her diarrhea causing a drop in blood pressures. * Cardiac dysrhythmia is not likely * EKG shows sinus rhythm (9) Facial bruising: Code(s): S00.83XA - Contusion of other part of head, initial encounter Status: Acute Assessment and Plan: * Bruising noted to the bottom of the jaw with swelling * From the fall and syncopal episode (10) Hypokalemia: Code(s): E87.6 - Hypokalemia Status: Acute Assessment and Plan: * k 3.3 * Replace with 40meq
--- NOTE | 2021-05-23 15:14 | PM.IMPN ---
Progress Note: A&P Assessment and Plan (1) Clostridium difficile colitis: Onset Date: 02/2021 Code(s): A04.72 - Enterocolitis due to Clostridium difficile, not specified as recurrent Status: Acute Assessment and Plan: CT of the abdomen and pelvis shows weber colitis recurrence of C diff. Patient has had two other episodes of C.Diff since January of 2021 Fever reported at 102.9 upon admission Started on flagyl, fidaomicin, cholestyramine Stool cultures pending Dr. Strickland was consulted and his input is appreciated. no change in diarrhea C.Diff sample was not preserved, test came back inconclusive Symptoms consistent with C.Diff ID consult Patient would benefit from a fecal transplant WBC trending down (2) Colitis: Code(s): K52.9 - Noninfective gastroenteritis and colitis, unspecified Status: Acute Assessment and Plan: CT of the abdomen and pelvis shows weber colitis recurrence of C diff. Fever reported at 102.9 upon admission Started on flagyl, fidaomicin, cholestyramine Stool cultures pending Dr. Strickland was consulted and his input is appreciated. no change in diarrhea C.Diff sample was not preserved, test came back inconclusive Symptoms consistent with C.Diff ID consult Patient would benefit from a fecal transplant (3) Diarrhea: Code(s): R19.7 - Diarrhea, unspecified Status: Acute Assessment and Plan: See above (4) Transaminitis: Code(s): R74.01 - Elevation of levels of liver transaminase levels Status: Acute Assessment and Plan: LFTs are elevated AST 59, ALT 104 Probably related to infection Trend labs Acetaminophen level was undetectable hepatitis panel was negative. Coags were within normal limits. (5) UTI (urinary tract infection): Code(s): N39.0 - Urinary tract infection, site not specified Status: Acute Assessment and Plan: UA showed 2+ blood, positive nitrate, 2+ leukocyte esterase, white blood cell 51-75, heavy mucus Urine culture found klebsiella pnemoniae Sensitivities support ceftriaxone Strict I&O (6) Acute kidney injury: Code(s): N17.9 - Acute kidney failure, unspecified Status: Acute Assessment and Plan: BUN and creatinine 13/0.9 upon admission Currently 5/0.7 Probably related to dehydration, UTI, diarrhea Rehydration with IV fluids Monitor I&Os (7) Dehydration: Code(s): E86.0 - Dehydration Status: Acute Assessment and Plan: see above (8) Syncope: Qualifiers: Syncope type: unspecified Qualified Code(s): R55 - Syncope and collapse Code(s): R55 - Syncope and collapse Status: Acute Assessment and Plan: syncopal episode due to significant volume loss given her diarrhea causing a drop in blood pressures. Cardiac dysrhythmia is not likely EKG shows sinus rhythm (9) Facial bruising: Code(s): S00.83XA - Contusion of other part of head, initial encounter Status: Acute Assessment and Plan: Bruising noted to the bottom of the jaw with swelling From the fall and syncopal episode (10) Hypokalemia: Code(s): E87.6 - Hypokalemia Status: Acute Assessment and Plan: k 3.3 Replace with 40meq PO once trend labs replace as needed Time Spent With Patient Time with patient: Greater than 35 minutes Subjective Date/time seen: 05/23/21 10:54 Interval history: Date of Service 05/22/21 @ 15:00 Patient is a 76-year-old female who is here for diarrhea and syncope. Patient stated that symptoms really started shortly after coming off of the antibiotics. Patient just finished a course of vancomycin p.o. for 6 weeks and has been done with them for 3 weeks. She stated that when she went off the medications that she started her course of vomiting accompany with chills that c
[2021-05-23] MEDS: POTASSIUM CHLORIDE 20 MEQ TABLET 40 MEQ PO (17:10)
[2021-05-23] MEDS: SODIUM CHLORIDE 0.9% IV 1,000 ML 100 ML IV CONT ×2 (22:34)
[2021-05-24] VITALS (7 sets, daily range): BP systolic 123–150; BP diastolic 53–68; PULSE 72–80; RESP 16–18; TEMP 36.3–37.1; O2SAT 96–100
[2021-05-24] MEDS: metroNIDAZOLE 500 MG/ISO 100ML 500 MG/100 ML BAG 100 MG IVPB ×4 (02:30→21:11)
[2021-05-24 06:39] LABS: Basophils Percent Auto 0.7 % (0.2-1.2); Eosinophils Absolute Auto 0.2 K/mm3 (0-0.3); Eosinophils Percent Auto 3.4 % (0-4.4); Hematocrit 36.9 % (37.0-47.0); Immature Granulocyte Absolute 0.02 K/mm3 (0.00-0.031); Immature Granulocyte Percent A 0.3 % (0-0.5); Lymphocytes Absolute Auto 1.44 K/mm3 (0.9-3.2); Lymphocytes Percent Auto 23.5 % (18.3-44.2); Mean Corpuscular HGB Conc 32.5 g/dl (32-36); Mean Corpuscular Hemoglobin 30.1 pg (26-34); Mean Corpuscular Volume 92.5 fl (80-100); Mean Platelet Volume 9.8 fl (7.4-10.4); Monocytes Absolute Auto 0.7 K/mm3 (0.1-0.6); Monocytes Percent Auto 11.6 % (2.6-8.5); Neutrophils Absolute Auto 3.7 K/mm3 (1.3-6.7); Neutrophils Percent Auto 60.5 % (45.5-73.1); Platelet Count Result 235 k/mm3 (150-375); Red Blood Count 3.99 M/mm3 (4.2-5.4); Red Cell Distribution Width 12.4 % (11.5-14.5); White Blood Count 6.1 K/mm3 (4.5-10.0)
[2021-05-24 06:53] LABS: Alanine Aminotransferase 71 U/L (4-35); Albumin Level 3.3 g/dL (3.5-5.1); Alkaline Phosphatase 61 U/L (38-126); Anion Gap 2 mmol/L (8-16); Aspartate Amino Transferase 36 U/L (14-36); Bilirubin,Total < 0.1 mg/dL (0.2-1.3); Blood Urea Nitrogen 3 mg/dL (7-17); Calcium 8.6 mg/dL (8.4-10.2); Carbon Dioxide 26 mmol/L (22-30); Chloride 109 mmol/L (98-107); Estimated CRCL calculation 59 ml/min; Estimated Glomerular Filt Rate > 60; Glucose 113 mg/dL (65-110); Magnesium 2.1 mg/dL (1.6-2.3); Sodium 137 mmol/L (137-145)
--- NOTE | 2021-05-24 07:27 | WPDGIPROGNO ---
Progress Note: A&P Assessment and Plan (1) Diarrhea: Code(s): R19.7 - Diarrhea, unspecified Status: Acute Assessment and Plan: Patient continues to have diarrhea on the basis of C difficile colitis. Now on Questran supplementation. Diarrhea appears to be lessening. Will keep her in the hospital on IV medications at least 1 more day. (2) Clostridium difficile colitis: Onset Date: 02/2021 Code(s): A04.72 - Enterocolitis due to Clostridium difficile, not specified as recurrent Status: Acute Assessment and Plan: Patient with C difficile colitis. Pancolitis by CT scan. Diffuse abdominal pain improving white count improving LFTs all consistent with sepsis that is improving. Plan is for IV Flagyl and oral Dificid for now. Anticipate that she will be discharged on vancomycin and continue on this medication until seen in the office in several weeks. I would keep her In the hospital on IV medications till her abdominal pain and diarrhea have recovered. (3) UTI (urinary tract infection): Code(s): N39.0 - Urinary tract infection, site not specified Status: Acute Assessment and Plan: patient found to have concomitant urinary tract infection now on appropriate antibiotic therapy. Probiotics may be beneficial when she has completed her antibiotics. Subjective Date/time seen: 05/24/21 07:27 patient is starting to feel better. stools remain liquidy. But less frequent between stools. She reports ongoing abdominal pain but this is lessened to some degree. Review of Systems Review of Systems: All systems reviewed & are unremarkable except as noted in HPI and below Exam Narrative: Physical exam reveals patient to be alert comfortable at rest. HEENT exam reveals facial ecchymoses predominately on the chin. Lungs are clear to auscultation and percussion. Heart is without murmur or extra sounds. Abdominal exam bowel sounds are present soft mild diffuse tenderness appreciated. Extremities are without clubbing cyanosis or edema. Objective Data Vital Signs Vital Signs: Vital Signs - 24 hr 05/23/21 08:06 05/23/21 14:00 05/23/21 14:03 Temperature 97.9 F Pulse Rate 88 76 77 Respiratory Rate 16 16 Blood Pressure 116/62 129/56 L Pulse Oximetry 100 100 05/23/21 14:06 05/23/21 19:30 05/23/21 19:33 Temperature 98.1 F 97.1 F L Pulse Rate 76 83 82 Respiratory Rate 16 18 18 Blood Pressure 137/54 L 113/54 L 138/61 Pulse Oximetry 99 96 97 05/23/21 19:36 05/23/21 21:54 05/24/21 05:43 Temperature 97.2 F L 98.3 F 97.3 F L Pulse Rate 89 82 72 Respiratory Rate 18 18 18 Blood Pressure 131/61 138/56 L 123/55 L Pulse Oximetry 97 98 99 Intake/Output Intake/Output: Intake & Output 05/21/21 05/22/21 05/23/21 05/24/21 23:59 23:59 23:59 23:59 Intake Total 1100 5110 3170 350 Output Total 1800 2250 1200 Balance 1100 3310 920 -850 Meds/Results Medications: Active Medications Generic Name Dose Route Start Last Admin Trade Name Freq PRN Reason Stop Dose Admin Aspirin 81 mg 05/22/21 08:00 05/23/21 08:05 Aspirin 81 Mg Chewable Tablet PO 81 mg DAILY@0800 SLICK Administration Cholestyramine Resin 4 gm 05/22/21 18:00 05/23/21 17:11 Cholestyramine Light 4 Gm Powd.Pack PO 4 gm BID@1000,1800 SLICK Administration Fidaxomicin 200 mg 05/21/21 21:00 05/23/21 22:28 Fidaxomicin 200 Mg Tablet PO 05/31/21 20:59 200 mg Q12HR SLICK Administration Metronidazole 500 mg in 100 mls @ 100 mls/hr 05/21/21 20:00 05/24/21 03:30 Flagyl 500 Mg/Iso Soln 100 Ml IVPB Infused Q6H SLICK Infusion Sodium Chloride 1,000 mls @ 100 mls/hr 05/21/21 19:40 05/23/21 22:34 Normal Saline Iv IV CONT 100 mls/hr .Q10H SLICK Administration Ceftriaxone Sodium/Dextrose 1 gm in 50 mls @ 100 mls/hr 05/22/21 18:00 05/23/21 19:00 Rocephin 1 Gm/D5w 50 Ml IVPB Infused Q24H SLICK Infusion Metoprolol Succinate 25 mg 05/22/21 09:00 05/23/21 08:0
--- NOTE | 2021-05-24 09:06 | P.PNIM_ITS ---
Progress Note: A&P Assessment and Plan (1) Clostridium difficile colitis: Onset Date: 02/2021 Code(s): A04.72 - Enterocolitis due to Clostridium difficile, not specified as recurrent Status: Acute Assessment and Plan: * CT of the abdomen and pelvis shows weber colitis recurrence of C diff. * Patient has had two other episodes of C.Diff since January of 2021 * Fever reported at 102.9 upon admission * Started on flagyl, fidaomicin, cholestyramine * Stool cultures pending * Dr. Strickland was consulted and his input is appreciated. * no change in diarrhea * C.Diff sample was not preserved, test came back inconclusive * Symptoms consistent with C.Diff * ID consult thank you for your recommendations * Patient would benefit from a fecal transplant * WBC trending down Currently at 6.1 (2) Colitis: Code(s): K52.9 - Noninfective gastroenteritis and colitis, unspecified Status: Acute Assessment and Plan: * CT of the abdomen and pelvis shows weber colitis recurrence of C diff. * Fever reported at 102.9 upon admission * Started on flagyl, fidaomicin, cholestyramine * Stool cultures pending * Dr. Strickland was consulted and his input is appreciated. * no change in diarrhea * C.Diff sample was not preserved, test came back inconclusive * Symptoms consistent with C.Diff * ID consult * Patient would benefit from a fecal transplant (3) Diarrhea: Code(s): R19.7 - Diarrhea, unspecified Status: Acute Assessment and Plan: * See above (4) Transaminitis: Code(s): R74.01 - Elevation of levels of liver transaminase levels Status: Acute Assessment and Plan: * LFTs are elevated AST 36, ALT 71 * Probably related to infection * Trend labs * Acetaminophen level was undetectable * hepatitis panel was negative. * Coags were within normal limits. (5) UTI (urinary tract infection): Code(s): N39.0 - Urinary tract infection, site not specified Status: Acute Assessment and Plan: * UA showed 2+ blood, positive nitrate, 2+ leukocyte esterase, white blood cell 51-75, heavy mucus * Urine culture found klebsiella pnemoniae * Sensitivities support ceftriaxone * Strict I&O (6) Acute kidney injury: Code(s): N17.9 - Acute kidney failure, unspecified Status: Acute Assessment and Plan: * BUN and creatinine 13/0.9 upon admission * Currently 3/0.6 * Probably related to dehydration, UTI, diarrhea * Rehydration with IV fluids * Monitor I&Os (7) Dehydration: Code(s): E86.0 - Dehydration Status: Acute Assessment and Plan: * see above (8) Syncope: Qualifiers: Syncope type: unspecified Qualified Code(s): R55 - Syncope and collapse Code(s): R55 - Syncope and collapse Status: Acute Assessment and Plan: * syncopal episode due to significant volume loss given her diarrhea causing a drop in blood pressures. * Cardiac dysrhythmia is not likely * EKG shows sinus rhythm (9) Facial bruising: Code(s): S00.83XA - Contusion of other part of head, initial encounter Status: Acute Assessment and Plan: * Bruising noted to the bottom of the jaw with swelling * From the fall and syncopal episode (10) Hypokalemia: Code(s): E87.6 - Hypokalemia Status: Acute Assessmen
--- NOTE | 2021-05-24 09:06 | PM.IMPN ---
Progress Note: A&P Assessment and Plan (1) Clostridium difficile colitis: Onset Date: 02/2021 Code(s): A04.72 - Enterocolitis due to Clostridium difficile, not specified as recurrent Status: Acute Assessment and Plan: CT of the abdomen and pelvis shows weber colitis recurrence of C diff. Patient has had two other episodes of C.Diff since January of 2021 Fever reported at 102.9 upon admission Started on flagyl, fidaomicin, cholestyramine Stool cultures pending Dr. Srtickland was consulted and his input is appreciated. no change in diarrhea C.Diff sample was not preserved, test came back inconclusive Symptoms consistent with C.Diff ID consult thank you for your recommendations Patient would benefit from a fecal transplant WBC trending down Currently at 6.1 (2) Colitis: Code(s): K52.9 - Noninfective gastroenteritis and colitis, unspecified Status: Acute Assessment and Plan: CT of the abdomen and pelvis shows weber colitis recurrence of C diff. Fever reported at 102.9 upon admission Started on flagyl, fidaomicin, cholestyramine Stool cultures pending Dr. Strickland was consulted and his input is appreciated. no change in diarrhea C.Diff sample was not preserved, test came back inconclusive Symptoms consistent with C.Diff ID consult Patient would benefit from a fecal transplant (3) Diarrhea: Code(s): R19.7 - Diarrhea, unspecified Status: Acute Assessment and Plan: See above (4) Transaminitis: Code(s): R74.01 - Elevation of levels of liver transaminase levels Status: Acute Assessment and Plan: LFTs are elevated AST 36, ALT 71 Probably related to infection Trend labs Acetaminophen level was undetectable hepatitis panel was negative. Coags were within normal limits. (5) UTI (urinary tract infection): Code(s): N39.0 - Urinary tract infection, site not specified Status: Acute Assessment and Plan: UA showed 2+ blood, positive nitrate, 2+ leukocyte esterase, white blood cell 51-75, heavy mucus Urine culture found klebsiella pnemoniae Sensitivities support ceftriaxone Strict I&O (6) Acute kidney injury: Code(s): N17.9 - Acute kidney failure, unspecified Status: Acute Assessment and Plan: BUN and creatinine 13/0.9 upon admission Currently 3/0.6 Probably related to dehydration, UTI, diarrhea Rehydration with IV fluids Monitor I&Os (7) Dehydration: Code(s): E86.0 - Dehydration Status: Acute Assessment and Plan: see above (8) Syncope: Qualifiers: Syncope type: unspecified Qualified Code(s): R55 - Syncope and collapse Code(s): R55 - Syncope and collapse Status: Acute Assessment and Plan: syncopal episode due to significant volume loss given her diarrhea causing a drop in blood pressures. Cardiac dysrhythmia is not likely EKG shows sinus rhythm (9) Facial bruising: Code(s): S00.83XA - Contusion of other part of head, initial encounter Status: Acute Assessment and Plan: Bruising noted to the bottom of the jaw with swelling From the fall and syncopal episode (10) Hypokalemia: Code(s): E87.6 - Hypokalemia Status: Acute Assessment and Plan: k 4.0 Replace with 40meq PO once trend labs replace as needed (11) Allergies: Code(s): T78.40XA - Allergy, unspecified, initial encounter Status: Acute Assessment and Plan: continue patient's home medications restarted her home Flonase. Time Spent With Patient Time with patient: Greater than 35 minutes Subjective Date/time seen: 05/24/21 11:00 Interval history: Date of Service 05/22/21 @ 15:00 Patient is a 76-year-old female who is here for diarrhea and syncope. Patient stated that symptoms really started sh
[2021-05-24] MEDS: SACCHAROMYCES BOULARDII 250 MG CAPSULE PO ×2 (09:11→16:58)
[2021-05-24] MEDS: FIDAXOMICIN 200 MG TABLET PO ×2 (09:11→21:14)
[2021-05-24] MEDS: POTASSIUM CHLORIDE 10 MEQ TABLET.ER PO ×2 (09:11→16:58)
[2021-05-24] MEDS: METOPROLOL SUCCINATE EXT REL 25 MG TABCR PO (09:11)
[2021-05-24] MEDS: ASPIRIN 81 MG CHEWABLE TABLET PO (09:12)
[2021-05-24] MEDS: CHOLESTYRAMINE LIGHT 4 GM POWD.PACK PO ×2 (10:57→17:22)
[2021-05-24] MEDS: SODIUM CHLORIDE 0.9% IV 1,000 ML 100 ML IV CONT ×2 (12:14→21:14)
[2021-05-24] MEDS: FLUTICASONE PROPIONATE 0.05% NA SPR 16 GM BTL (*BKC) 1 SPRAY NASAL (21:14)
[2021-05-25] VITALS (11 sets, daily range): BP systolic 119–136; BP diastolic 54–67; PULSE 70–77; RESP 12–18; TEMP 35.9–36.7; O2SAT 94–99
[2021-05-25] MEDS: metroNIDAZOLE 500 MG/ISO 100ML 500 MG/100 ML BAG 100 MG IVPB ×3 (02:31→16:00)
[2021-05-25 06:55] LABS: Basophils Percent Auto 0.7 % (0.2-1.2); Eosinophils Absolute Auto 0.3 K/mm3 (0-0.3); Eosinophils Percent Auto 4.9 % (0-4.4); Hematocrit 37.8 % (37.0-47.0); Hemoglobin 11.9 g/dL (12.0-15.0); Immature Granulocyte Absolute 0.03 K/mm3 (0.00-0.031); Immature Granulocyte Percent A 0.6 % (0-0.5); Lymphocytes Percent Auto 35.6 % (18.3-44.2); Mean Corpuscular HGB Conc 31.5 g/dl (32-36); Mean Corpuscular Hemoglobin 28.9 pg (26-34); Mean Corpuscular Volume 91.7 fl (80-100); Mean Platelet Volume 9.6 fl (7.4-10.4); Monocytes Absolute Auto 0.6 K/mm3 (0.1-0.6); Neutrophils Absolute Auto 2.5 K/mm3 (1.3-6.7); Neutrophils Percent Auto 47.2 % (45.5-73.1); Platelet Count Result 292 k/mm3 (150-375); Red Blood Count 4.12 M/mm3 (4.2-5.4); Red Cell Distribution Width 12.1 % (11.5-14.5); White Blood Count 5.3 K/mm3 (4.5-10.0)
[2021-05-25 07:14] LABS: Alanine Aminotransferase 54 U/L (4-35); Albumin Level 3.4 g/dL (3.5-5.1); Alkaline Phosphatase 61 U/L (38-126); Anion Gap 5 mmol/L (8-16); Aspartate Amino Transferase 31 U/L (14-36); Bilirubin,Total 0.3 mg/dL (0.2-1.3); Blood Urea Nitrogen 6 mg/dL (7-17); Calcium 8.6 mg/dL (8.4-10.2); Carbon Dioxide 27 mmol/L (22-30); Chloride 108 mmol/L (98-107); Estimated CRCL calculation 53 ml/min; Estimated Glomerular Filt Rate > 60; Glucose 96 mg/dL (65-110); Sodium 140 mmol/L (137-145)
[2021-05-25] MEDS: METOPROLOL SUCCINATE EXT REL 25 MG TABCR PO (08:47)
[2021-05-25] MEDS: SACCHAROMYCES BOULARDII 250 MG CAPSULE PO ×2 (08:47→16:00)
[2021-05-25] MEDS: FIDAXOMICIN 200 MG TABLET PO (08:50)
[2021-05-25] MEDS: POTASSIUM CHLORIDE 10 MEQ TABLET.ER PO ×2 (08:50→16:00)
[2021-05-25] MEDS: ASPIRIN 81 MG CHEWABLE TABLET PO (08:50)
[2021-05-25] MEDS: SODIUM CHLORIDE 0.9% IV 1,000 ML 100 ML IV CONT (08:51)
[2021-05-25] MEDS: FLUTICASONE PROPIONATE 0.05% NA SPR 16 GM BTL (*BKC) 1 SPRAY NASAL ×2 (08:52→20:59)
--- NOTE | 2021-05-25 09:07 | WPDGIPROGNO ---
Progress Note: A&P Assessment and Plan (1) Diarrhea: Code(s): R19.7 - Diarrhea, unspecified Status: Acute Assessment and Plan: Diarrhea improving with antibiotic therapy for C diff. Also on Questran at this time. Patient reports Dificid very expensive. Prefers to try vancomycin after discharge orally. At this time would suggest transitioning to oral therapy. Consider discharge in the morning if not later today. I understand ID services to see patient will see if their recommendations are 1st. (2) Clostridium difficile colitis: Onset Date: 02/2021 Code(s): A04.72 - Enterocolitis due to Clostridium difficile, not specified as recurrent Status: Acute Assessment and Plan: Patient has had recurrent episodes of Clostridium difficile infection. We discussed fecal transplant. I will get her information on proceeding with this. this can be accomplished as an outpatient. (3) Facial bruising: Code(s): S00.83XA - Contusion of other part of head, initial encounter Status: Acute (4) UTI (urinary tract infection): Code(s): N39.0 - Urinary tract infection, site not specified Status: Acute Subjective Date/time seen: 05/25/21 09:07 Patient alert and comfortable this morning. She states she has much less tenderness in her abdomen. Bowel movements are less frequent with some substance. No bleeding identified. Tolerating general diet without difficulty. Review of Systems Review of Systems: All systems reviewed & are unremarkable except as noted in HPI and below Exam Narrative: Patient alert. Vital signs stable. HEENT exam reveals ecchymosis on her chin. Lungs are clear. Heart without murmur. Abdomen bowel sounds present soft with no organomegaly. Minimal tenderness at this time. Objective Data Vital Signs Vital Signs: Vital Signs - 24 hr 05/24/21 09:11 05/24/21 14:00 05/24/21 14:03 Temperature 98.6 F Pulse Rate 80 74 Respiratory Rate 17 Blood Pressure 132/53 L 136/60 Pulse Oximetry 100 05/24/21 14:06 05/24/21 20:00 05/24/21 21:05 Temperature 98.8 F Pulse Rate 76 Respiratory Rate 16 Blood Pressure 134/59 L 129/53 L 144/67 H Pulse Oximetry 96 05/25/21 06:00 05/25/21 08:05 05/25/21 08:10 Temperature 97.0 F L Pulse Rate 75 Respiratory Rate 16 Blood Pressure 133/59 L 132/67 119/60 Pulse Oximetry 99 05/25/21 08:21 05/25/21 08:47 Temperature Pulse Rate 77 Respiratory Rate Blood Pressure 132/54 L Pulse Oximetry Intake/Output Intake/Output: Intake & Output 05/22/21 05/23/21 05/24/21 05/25/21 23:59 23:59 23:59 23:59 Intake Total 5110 3170 4050 1400 Output Total 1800 2250 2300 2200 Balance 3310 920 1750 -800 Meds/Results Medications: Active Medications Generic Name Dose Route Start Last Admin Trade Name Freq PRN Reason Stop Dose Admin Aspirin 81 mg 05/22/21 08:00 05/25/21 08:50 Aspirin 81 Mg Chewable Tablet PO 81 mg DAILY@0800 [facility] Administration Cholestyramine Resin 4 gm 05/22/21 18:00 05/24/21 17:22 Cholestyramine Light 4 Gm Powd.Pack PO 4 gm BID@1000,1800 [facility] Administration Fidaxomicin 200 mg 05/21/21 21:00 05/25/21 08:50 Fidaxomicin 200 Mg Tablet PO 05/31/21 20:59 200 mg Q12HR [facility] Administration Fluticasone Propionate 1 spray 05/24/21 21:00 05/25/21 08:52 Fluticasone Propionate 0.05% Na Spr 16 Gm Btl (*Bkc) NASAL 1 spray Q12HR [facility] Administration Metronidazole 500 mg in 100 mls @ 100 mls/hr 05/21/21 20:00 05/25/21 08:50 Flagyl 500 Mg/Iso Soln 100 Ml IVPB 100 mls/hr Q6H [facility] Administration Sodium Chloride 1,000 mls @ 100 mls/hr 05/21/21 19:40 05/25/21 08:52 Normal Saline Iv IV CONT 0 mls/hr .Q10H [facility] Infusion Ceftriaxone Sodium/Dextrose 1 gm in 50 mls @ 100 mls/hr 05/22/21 18:00 05/24/21 17:52 Rocephin 1 Gm/D5w 50 Ml IVPB Infused Q24H [facility] Infusion Metoprolol Succinate 25 mg 05/22/21 09:00 05/25/21 0
--- NOTE | 2021-05-25 10:00 | PM.IMPN ---
Progress Note: A&P Assessment and Plan (1) Clostridium difficile colitis: Onset Date: 02/2021 Code(s): A04.72 - Enterocolitis due to Clostridium difficile, not specified as recurrent Status: Acute Assessment and Plan: CT of the abdomen and pelvis shows weber colitis recurrence of C diff. Patient has had two other episodes of C.Diff since January of 2021 Fever reported at 102.9 upon admission Started on flagyl, fidaomicin, cholestyramine Stool cultures pending Dr. Strickland was consulted and his input is appreciated. More formed stool and less time in the bathroom C.Diff sample was not preserved, test came back inconclusive Symptoms consistent with C.Diff ID consult thank you for your recommendations Patient would benefit from a fecal transplant WBC trending down Currently at 5.[address] Strickland about further plan of care (2) Colitis: Code(s): K52.9 - Noninfective gastroenteritis and colitis, unspecified Status: Acute Assessment and Plan: CT of the abdomen and pelvis shows weber colitis recurrence of C diff. Fever reported at 102.9 upon admission Started on flagyl, fidaomicin, cholestyramine Stool cultures pending Dr. Strickland was consulted and his input is appreciated. no change in diarrhea C.Diff sample was not preserved, test came back inconclusive Symptoms consistent with C.Diff ID consult Patient would benefit from a fecal transplant (3) Diarrhea: Code(s): R19.7 - Diarrhea, unspecified Status: Acute Assessment and Plan: See above (4) Transaminitis: Code(s): R74.01 - Elevation of levels of liver transaminase levels Status: Acute Assessment and Plan: Seems to be resolved LFTs are elevated AST 31, ALT 54 Probably related to infection Trend labs Acetaminophen level was undetectable hepatitis panel was negative. Coags were within normal limits. (5) UTI (urinary tract infection): Code(s): N39.0 - Urinary tract infection, site not specified Status: Acute Assessment and Plan: UA showed 2+ blood, positive nitrate, 2+ leukocyte esterase, white blood cell 51-75, heavy mucus Urine culture found klebsiella pnemoniae Sensitivities support ceftriaxone Strict I&O (6) Acute kidney injury: Code(s): N17.9 - Acute kidney failure, unspecified Status: Acute Assessment and Plan: BUN and creatinine 13/0.9 upon admission Currently 6/0.60 Probably related to dehydration, UTI, diarrhea Rehydration with IV fluids Monitor I&Os (7) Dehydration: Code(s): E86.0 - Dehydration Status: Acute Assessment and Plan: see above (8) Syncope: Qualifiers: Syncope type: unspecified Qualified Code(s): R55 - Syncope and collapse Code(s): R55 - Syncope and collapse Status: Acute Assessment and Plan: syncopal episode due to significant volume loss given her diarrhea causing a drop in blood pressures. Cardiac dysrhythmia is not likely EKG shows sinus rhythm (9) Facial bruising: Code(s): S00.83XA - Contusion of other part of head, initial encounter Status: Acute Assessment and Plan: Bruising noted to the bottom of the jaw with swelling From the fall and syncopal episode Will try 1 dose of Toradol see that helps her lip (10) Hypokalemia: Code(s): E87.6 - Hypokalemia Status: Acute Assessment and Plan: k 4.0 Replace with 40meq PO once trend labs replace as needed (11) Allergies: Code(s): T78.40XA - Allergy, unspecified, initial encounter Status: Acute Assessment and Plan: continue patient's home medications restarted her home Flonase. Time Spent With Patient Time with patient: Greater than 35 minutes Subjective Date/time seen: 05/25/21 10:00 Interval hist
--- NOTE | 2021-05-25 10:00 | P.PNIM_ITS ---
Progress Note: A&P Assessment and Plan (1) Clostridium difficile colitis: Onset Date: 02/2021 Code(s): A04.72 - Enterocolitis due to Clostridium difficile, not specified as recurrent Status: Acute Assessment and Plan: * CT of the abdomen and pelvis shows weber colitis recurrence of C diff. * Patient has had two other episodes of C.Diff since January of 2021 * Fever reported at 102.9 upon admission * Started on flagyl, fidaomicin, cholestyramine * Stool cultures pending * Dr. Strickland was consulted and his input is appreciated. * More formed stool and less time in the bathroom * C.Diff sample was not preserved, test came back inconclusive * Symptoms consistent with C.Diff * ID consult thank you for your recommendations * Patient would benefit from a fecal transplant * WBC trending down Currently at 5.3 * Discussed with Dr. Strickland about further plan of care (2) Colitis: Code(s): K52.9 - Noninfective gastroenteritis and colitis, unspecified Status: Acute Assessment and Plan: * CT of the abdomen and pelvis shows weber colitis recurrence of C diff. * Fever reported at 102.9 upon admission * Started on flagyl, fidaomicin, cholestyramine * Stool cultures pending * Dr. Strickland was consulted and his input is appreciated. * no change in diarrhea * C.Diff sample was not preserved, test came back inconclusive * Symptoms consistent with C.Diff * ID consult * Patient would benefit from a fecal transplant (3) Diarrhea: Code(s): R19.7 - Diarrhea, unspecified Status: Acute Assessment and Plan: * See above (4) Transaminitis: Code(s): R74.01 - Elevation of levels of liver transaminase levels Status: Acute Assessment and Plan: * Seems to be resolved * LFTs are elevated AST 31, ALT 54 * Probably related to infection * Trend labs * Acetaminophen level was undetectable * hepatitis panel was negative. * Coags were within normal limits. (5) UTI (urinary tract infection): Code(s): N39.0 - Urinary tract infection, site not specified Status: Acute Assessment and Plan: * UA showed 2+ blood, positive nitrate, 2+ leukocyte esterase, white blood cell 51-75, heavy mucus * Urine culture found klebsiella pnemoniae * Sensitivities support ceftriaxone * Strict I&O (6) Acute kidney injury: Code(s): N17.9 - Acute kidney failure, unspecified Status: Acute Assessment and Plan: * BUN and creatinine 13/0.9 upon admission * Currently 6/0.60 * Probably related to dehydration, UTI, diarrhea * Rehydration with IV fluids * Monitor I&Os (7) Dehydration: Code(s): E86.0 - Dehydration Status: Acute Assessment and Plan: * see above (8) Syncope: Qualifiers: Syncope type: unspecified Qualified Code(s): R55 - Syncope and collapse Code(s): R55 - Syncope and collapse Status: Acute Assessment and Plan: * syncopal episode due to significant volume loss given her diarrhea causing a drop in blood pressures. * Cardiac dysrhythmia is not likely * EKG shows sinus rhythm (9) Facial bruising: Code(s): S00.83XA - Contusion of other part of head, initial encounter Status: Acute Assessment and Plan: * Bruising noted to the bottom of the jaw with swelling * From the fall and syncopal episode * Will try 1 dose of Tor
--- NOTE | 2021-05-25 11:08 | PCNFU ---
Nutrition Follow-Up Complete: Unintended weight loss as related to colitis/cdiff hx as evidenced by 15 ibs weight loss reported. Goal: Meet estimated nutritional needs Patient is progressing towards goal. We will continue current goal. Pt current nutrition is Regular with Banatrol Plus TID. Last recorded weight is 65.1 kg, down from 65.7 kg on admit. Bowel Motility:+BM reported 10/7-more formed stools noted. Labs Reviewed:Cr 0.6,BUN 6, Alb 3.4,Hgb 11.9 Meds Noted:Toprol, NS, Florastor, Flagyl, Rocephin, Dificid. Additional Notes: Nutrition follow up, spoke with patient today. She states to oral intake has been greater than 75% of regular diet. Banatrol Plus TID for stool bulking. Stools cultures pending. Agree with diet orders. Will monitor every 5 days.
[2021-05-25] MEDS: CHOLESTYRAMINE LIGHT 4 GM POWD.PACK PO (11:54)
--- NOTE | 2021-05-25 16:51 | WPDINFPN2 ---
Progress Note: A&P Assessment and Plan (1) Recurrent colitis due to Clostridium difficile: Code(s): A04.71 - Enterocolitis due to Clostridium difficile, recurrent Status: Acute Assessment and Plan: 1. C diff colitis, 2nd relapse (third episode), otherwise uncomplicated. 2. Asymptomatic bacteriuria REC Vanc bid until stool transplant (then stop). Stop cholestyramine since it binds and thus inactivates vanc. No need for dual therapy with metronidazole. Fidaxomicin (otherwise an excellent option) is too expensive for her. Other therapies such as rifaximin or linezolid do not have sufficient clinical trial data to use here. Call if Qs Subjective Date/time seen: 05/25/21 16:51 Objective Data Vital Signs Vital Signs: Vital Signs - 24 hr 05/24/21 20:00 05/24/21 21:05 05/25/21 06:00 Temperature 37.1 C 36.1 C L Pulse Rate 76 75 Respiratory Rate 16 16 Blood Pressure 129/53 L 144/67 H 133/59 L Pulse Oximetry 96 99 05/25/21 08:05 05/25/21 08:10 05/25/21 08:21 Temperature Pulse Rate Respiratory Rate Blood Pressure 132/67 119/60 132/54 L Pulse Oximetry 05/25/21 08:47 05/25/21 14:59 Temperature 36.7 C Pulse Rate 77 74 Respiratory Rate 12 Blood Pressure 126/67 Pulse Oximetry 99 Intake/Output Intake/Output: Intake & Output 05/22/21 05/23/21 05/24/21 05/25/21 23:59 23:59 23:59 23:59 Intake Total 5110 3170 4050 1980 Output Total 1800 2250 2300 3200 Balance 3310 920 1750 -1220 Meds/Results Medications: Active Medications Generic Name Dose Route Start Last Admin Trade Name Freq PRN Reason Stop Dose Admin Aspirin 81 mg 05/22/21 08:00 05/25/21 08:50 Aspirin 81 Mg Chewable Tablet PO 81 mg DAILY@0800 [facility] Administration Cholestyramine Resin 4 gm 05/22/21 18:00 05/25/21 11:54 Cholestyramine Light 4 Gm Powd.Pack PO 4 gm BID@1000,1800 [facility] Administration Fidaxomicin 200 mg 05/21/21 21:00 05/25/21 08:50 Fidaxomicin 200 Mg Tablet PO 05/31/21 20:59 200 mg Q12HR [facility] Administration Fluticasone Propionate 1 spray 05/24/21 21:00 05/25/21 08:52 Fluticasone Propionate 0.05% Na Spr 16 Gm Btl (*Bkc) NASAL 1 spray Q12HR [facility] Administration Metronidazole 500 mg in 100 mls @ 100 mls/hr 05/21/21 20:00 05/25/21 16:00 Flagyl 500 Mg/Iso Soln 100 Ml IVPB 100 mls/hr Q6H [facility] Administration Sodium Chloride 1,000 mls @ 100 mls/hr 05/21/21 19:40 05/25/21 16:02 Normal Saline Iv IV CONT 100 mls/hr .Q10H [facility] Infusion Ceftriaxone Sodium/Dextrose 1 gm in 50 mls @ 100 mls/hr 05/22/21 18:00 05/24/21 17:52 Rocephin 1 Gm/D5w 50 Ml IVPB Infused Q24H [facility] Infusion Metoprolol Succinate 25 mg 05/22/21 09:00 05/25/21 08:47 Metoprolol Succinate Ext Rel 25 Mg Tabcr PO 25 mg DAILY [facility] Administration Potassium Chloride 10 meq 05/22/21 08:00 05/25/21 16:00 Potassium Chloride 10 Meq Tablet.Er PO 10 meq BIDWM [facility] Administration Saccharomyces Boulardii 250 mg 05/22/21 09:00 05/25/21 16:00 Saccharomyces Boulardii 250 Mg Capsule PO 250 mg BID [facility] Administration Radiology Results: ITS Impressions Chest X-Ray 05/21/21 09:29 IMPRESSION: Mild discoid atelectasis or scarring in the left lower lobe; otherwise no active cardiopulmonary disease Head CT 05/21/21 10:20 IMPRESSION: 1. Normal aging brain. Abdomen/Pelvis CT 05/21/21 10:21 IMPRESSION: 1. Pancolitis which could be infectious, inflammatory or ischemic in etiology. Head/Cervical Spine/Facial Bones CT 05/21/21 10:22 IMPRESSION: 1. No fracture. 2. Severe cervical spondylosis. Abdomen Ultrasound 05/21/21 15:04 IMPRESSION: 1. Chronic mild central intrahepatic biliary ductal dilation with normal caliber common bile duct which is within normal limits post cholecystectomy. Labs Labs: Laboratory Results - last 24 hr 05/25/21 05/25/21 06:22 06:22 WBC 5.3 RBC 4.12 L Hgb 11.9 L Hct 37.8 MCV 91.7 MC
[2021-05-25] MEDS: KETOROLAC 15 MG/ML VIAL (*BKC) IV PUSH (17:59)
[2021-05-25] MEDS: VANCOMYCIN ORAL 125 MG/2.5 ML SYRUP PO (20:59)
--- NOTE | 2021-05-25 21:55 | CONS_ITS ---
DATE OF CONSULTATION: 05/25/2021 REASON FOR CONSULTATION: C difficile infection. HISTORY OF PRESENT ILLNESS: A 76-year-old female, who in February, she had new onset of frequent watery stools with some fecal incontinence. She was given metronidazole and oral vancomycin. She was given a 14-day course overall and also given 6 days of metronidazole while on inpatient. She completed the vancomycin without event, but within 3 days had relapse in her frequent watery bowel movements. As an outpatient, she was started on vancomycin, which she received over a 6-week course with a slow taper. She had several loose bowel movements about 4 days later, which seemed to improve, but then became worse about 2 weeks prior to admission. She took loperamide with some success, but in the last 4 days had worsened diarrhea up to 20 bowel movements per day, small volumes with abdominal pain. Her emergency room visit was immediately prompted by a syncopal episode as well as a fever up to 39.2. Here, she has been given metronidazole, ceftriaxone, fidaxomicin, and IV metronidazole and consultation requested. She has had no further fever nor syncope. She has some lower abdominal pain, but not severe. Bowel movements are less frequent, but not fully formed as yet. She has not required any surgical intervention. ALLERGIES: NONE KNOWN. PRESENT MEDICATIONS: No immunosuppressants here nor at home. She does use probiotics. HABITS: No tobacco, alcohol, illicit drugs. PAST MEDICAL HISTORY: In addition to the above, hysterectomy, colon polyps, cholecystectomy, cataract extractions, left knee arthroscopic surgery, IBS, mitral valve prolapse, hypertension, hyperlipidemia, GERD, and endometriosis. FAMILY HISTORY: Not pertinent to her present illness. SOCIAL HISTORY: She is . Lives locally. Does not work outside the home. REVIEW OF SYSTEMS: 14-point review otherwise negative. PHYSICAL EXAMINATION: GENERAL: Elderly female appears younger than actual age, in no acute distress. VITAL SIGNS: On arrival, temperature was 37.7, and later the following day up to 38.1, otherwise afebrile, blood pressure 126/67, pulse 74, respirations 12, and O2 saturation 99% on room air. SKIN: Warm and dry. No rashes. No ecchymoses other than her left chin. EENT: The oropharynx and oral mucosa well hydrated. Conjunctivae are normal. No icterus. No paranasal sinus inflammation. NECK: No masses, thyromegaly, adenopathy, meningismus. LUNGS: Clear to auscultation and percussion. CARDIAC: Regular rate and rhythm. No murmur, gallop, rub, ectopy. Pulses are 1+ and equal. ABDOMEN: No bruits. Nontender. No masses. No organomegaly. EXTREMITIES: Without clubbing, cyanosis, edema. Well perfused. LABORATORY DATA: Blood cultures, 03/18, final no growth. Current urine with a Klebsiella pneumoniae. Her parasitic antigen panel of the stool, nonreactive. C diff assay reveals toxin A and B as well as GDH. Her white count 16.5 on re-arrival normal x3 days, 5.3 today, hemoglobin stable at 11.9, platelets are 292. Differential is normal. She has minimal hyperglycemia, low BUN, low creatinine. Liver function tests were high upon admission, now almost back to normal. Albumin 3.4. Urinalysis reviewed. Previous hepatitis panel and current normal and nonreactive. RADIOLOGY: Abdomen and pelvic CT pancolitis. No other acute finding. ASSESSMENT: 1. Clostridium difficile infection responsible for present illness. Other causes of her illness are infectious and otherwise are unlikely including parasitic either bacterial, viral, ischemic or tumor causes. I doubt irritable bowel syndrome is solely responsible for present illness. This is her 3rd episode, 2nd relapse, in 3 months. No recent antibiotics otherwise.
[2021-05-26] MEDS: SODIUM CHLORIDE 0.9% IV 1,000 ML 100 ML IV CONT (02:13)
[2021-05-26 06:00] VITALS: BP 137/57; PULSE 67; RESP 18; TEMP 36.3; O2SAT 98
[2021-05-26 06:26] LABS: Basophils Percent Auto 0.8 % (0.2-1.2); Eosinophils Absolute Auto 0.3 K/mm3 (0-0.3); Eosinophils Percent Auto 4.9 % (0-4.4); Hematocrit 37.1 % (37.0-47.0); Hemoglobin 12.1 g/dL (12.0-15.0); Immature Granulocyte Absolute 0.03 K/mm3 (0.00-0.031); Immature Granulocyte Percent A 0.6 % (0-0.5); Lymphocytes Absolute Auto 1.72 K/mm3 (0.9-3.2); Lymphocytes Percent Auto 33.4 % (18.3-44.2); Mean Corpuscular HGB Conc 32.6 g/dl (32-36); Mean Corpuscular Hemoglobin 30.3 pg (26-34); Mean Platelet Volume 9.1 fl (7.4-10.4); Monocytes Absolute Auto 0.5 K/mm3 (0.1-0.6); Monocytes Percent Auto 8.9 % (2.6-8.5); Neutrophils Absolute Auto 2.7 K/mm3 (1.3-6.7); Neutrophils Percent Auto 51.4 % (45.5-73.1); Platelet Count Result 287 k/mm3 (150-375); Red Blood Count 3.99 M/mm3 (4.2-5.4); Red Cell Distribution Width 12.3 % (11.5-14.5); White Blood Count 5.2 K/mm3 (4.5-10.0)
[2021-05-26 06:44] LABS: Alanine Aminotransferase 41 U/L (4-35); Albumin Level 3.3 g/dL (3.5-5.1); Alkaline Phosphatase 54 U/L (38-126); Anion Gap 4 mmol/L (8-16); Aspartate Amino Transferase 30 U/L (14-36); Bilirubin,Total < 0.1 mg/dL (0.2-1.3); Blood Urea Nitrogen 10 mg/dL (7-17); Calcium 8.9 mg/dL (8.4-10.2); Carbon Dioxide 28 mmol/L (22-30); Chloride 108 mmol/L (98-107); Estimated CRCL calculation 46 ml/min; Estimated Glomerular Filt Rate > 60; Glucose 101 mg/dL (65-110); Magnesium 2.1 mg/dL (1.6-2.3); Potassium 4.1 mmol/L (3.4-5.0); Sodium 140 mmol/L (137-145)
[2021-05-26 07:58] VITALS: BP 115/53; BP 132/68; PULSE 70; RESP 16; TEMP 36.7; O2SAT 96
[2021-05-26 08:04] VITALS: BP 132/63; PULSE 74
[2021-05-26] MEDS: VANCOMYCIN ORAL 125 MG/2.5 ML SYRUP PO (08:25)
[2021-05-26] MEDS: POTASSIUM CHLORIDE 10 MEQ TABLET.ER PO (08:25)
[2021-05-26] MEDS: FLUTICASONE PROPIONATE 0.05% NA SPR 16 GM BTL (*BKC) 1 SPRAY NASAL (08:25)
[2021-05-26] MEDS: METOPROLOL SUCCINATE EXT REL 25 MG TABCR PO (08:26)
[2021-05-26] MEDS: ASPIRIN 81 MG CHEWABLE TABLET PO (08:26)
[2021-05-26] MEDS: SACCHAROMYCES BOULARDII 250 MG CAPSULE PO (08:26)
--- NOTE | 2021-05-26 08:50 | P.DS_ITS ---
DS: Admitting Diagnosis Discharge Date Date of service 05/26/2021 at 930 Admitting Diagnosis Recurrent C diff infection DS: Discharge Diagnosis Discharge Diagnosis (1) Clostridium difficile colitis: Onset Date: 02/2021 Code(s): A04.72 - Enterocolitis due to Clostridium difficile, not specified as recurrent Status: Acute Assessment and Plan: * CT of the abdomen and pelvis shows weber colitis recurrence of C diff. * Patient has had two other episodes of C.Diff since January of 2021 * Fever reported at 102.9 upon admission * Started on flagyl, fidaomicin, cholestyramine * Stool cultures * Dr. Strickland was consulted and his input is appreciated. * More formed stool and less time in the bathroom * C.Diff sample was not preserved, test came back inconclusive * Symptoms consistent with C.Diff * ID consult thank you for your recommendations * Patient would benefit from a fecal transplant * WBC trending down Currently at 5.9 * Discussed with Dr. Strickland about further plan of care Infectious disease recommends patient go home on p.o. vancomycin b.i.d. until stool transplant could be accomplished (2) Colitis: Code(s): K52.9 - Noninfective gastroenteritis and colitis, unspecified Status: Acute Assessment and Plan: * CT of the abdomen and pelvis shows weber colitis recurrence of C diff. * Fever reported at 102.9 upon admission * Started on flagyl, fidaomicin, cholestyramine * Stool cultures pending * Dr. Strickland was consulted and his input is appreciated. * no change in diarrhea * C.Diff sample was not preserved, test came back inconclusive * Symptoms consistent with C.Diff * ID consult * Patient would benefit from a fecal transplant (3) Diarrhea: Code(s): R19.7 - Diarrhea, unspecified Status: Acute Assessment and Plan: * See above (4) Transaminitis: Code(s): R74.01 - Elevation of levels of liver transaminase levels Status: Acute Assessment and Plan: * Seems to be resolved * LFTs are elevated AST 31, ALT 54 * Probably related to infection * Trend labs * Acetaminophen level was undetectable * hepatitis panel was negative. * Coags were within normal limits. (5) UTI (urinary tract infection): Code(s): N39.0 - Urinary tract infection, site not specified Status: Acute Assessment and Plan: * UA showed 2+ blood, positive nitrate, 2+ leukocyte esterase, white blood cell 51-75, heavy mucus * Urine culture found klebsiella pnemoniae * Sensitivities support ceftriaxone * Strict I&O (6) Acute kidney injury: Code(s): N17.9 - Acute kidney failure, unspecified Status: Acute Assessment and Plan: * BUN and creatinine 13/0.9 upon admission * Currently 10/0.70 * Probably related to dehydration, UTI, diarrhea * Rehydration with IV fluids * Monitor I&Os (7) Dehydration: Code(s): E86.0 - Dehydration Status: Acute Assessment and Plan: * see above (8) Syncope: Qualifiers: Syncope type: unspecified Qualified Code(s): R55 - Syncope and collapse Code(s): R55 - Syncope and collapse Status: Acute Assessment and Plan: * syncopal episode due to significant volume loss given her diarrhea causing a drop in blood pressures. * Cardiac dysrhythmia is not likely * EKG shows sinus rhythm (9) Facial bruising:
--- NOTE | 2021-05-26 08:50 | PM.DS ---
DS: Admitting Diagnosis Discharge Date Date of service 05/26/2021 at 930 Admitting Diagnosis Recurrent C diff infection DS: Discharge Diagnosis Discharge Diagnosis (1) Clostridium difficile colitis: Onset Date: 02/2021 Code(s): A04.72 - Enterocolitis due to Clostridium difficile, not specified as recurrent Status: Acute Assessment and Plan: CT of the abdomen and pelvis shows weber colitis recurrence of C diff. Patient has had two other episodes of C.Diff since January of 2021 Fever reported at 102.9 upon admission Started on flagyl, fidaomicin, cholestyramine Stool cultures Dr. Strickland was consulted and his input is appreciated. More formed stool and less time in the bathroom C.Diff sample was not preserved, test came back inconclusive Symptoms consistent with C.Diff ID consult thank you for your recommendations Patient would benefit from a fecal transplant WBC trending down Currently at 5.[address] Strickland about further plan of care Infectious disease recommends patient go home on p.o. vancomycin b.i.d. until stool transplant could be accomplished (2) Colitis: Code(s): K52.9 - Noninfective gastroenteritis and colitis, unspecified Status: Acute Assessment and Plan: CT of the abdomen and pelvis shows weber colitis recurrence of C diff. Fever reported at 102.9 upon admission Started on flagyl, fidaomicin, cholestyramine Stool cultures pending Dr. Srtickland was consulted and his input is appreciated. no change in diarrhea C.Diff sample was not preserved, test came back inconclusive Symptoms consistent with C.Diff ID consult Patient would benefit from a fecal transplant (3) Diarrhea: Code(s): R19.7 - Diarrhea, unspecified Status: Acute Assessment and Plan: See above (4) Transaminitis: Code(s): R74.01 - Elevation of levels of liver transaminase levels Status: Acute Assessment and Plan: Seems to be resolved LFTs are elevated AST 31, ALT 54 Probably related to infection Trend labs Acetaminophen level was undetectable hepatitis panel was negative. Coags were within normal limits. (5) UTI (urinary tract infection): Code(s): N39.0 - Urinary tract infection, site not specified Status: Acute Assessment and Plan: UA showed 2+ blood, positive nitrate, 2+ leukocyte esterase, white blood cell 51-75, heavy mucus Urine culture found klebsiella pnemoniae Sensitivities support ceftriaxone Strict I&O (6) Acute kidney injury: Code(s): N17.9 - Acute kidney failure, unspecified Status: Acute Assessment and Plan: BUN and creatinine 13/0.9 upon admission Currently 10/0.70 Probably related to dehydration, UTI, diarrhea Rehydration with IV fluids Monitor I&Os (7) Dehydration: Code(s): E86.0 - Dehydration Status: Acute Assessment and Plan: see above (8) Syncope: Qualifiers: Syncope type: unspecified Qualified Code(s): R55 - Syncope and collapse Code(s): R55 - Syncope and collapse Status: Acute Assessment and Plan: syncopal episode due to significant volume loss given her diarrhea causing a drop in blood pressures. Cardiac dysrhythmia is not likely EKG shows sinus rhythm (9) Facial bruising: Code(s): S00.83XA - Contusion of other part of head, initial encounter Status: Acute Assessment and Plan: Bruising noted to the bottom of the jaw with swelling From the fall and syncopal episode Will try 1 dose of Toradol see that helps her lip (10) Hypokalemia: Code(s): E87.6 - Hypokalemia Status: Acute Assessment and Plan: k 4.0 Replace with 40meq PO once trend labs replace as needed (11) Allergies: Code(s): T78.40XA - Allergy, unspecified, initial encounter Status: Emi
== END 2021-05-26 10:59 | disposition home or self-care (01) | DRG 372 ==
LOC: ANHED 12:31 → ANH3MEDSUR 12:41
PROVIDERS: Physician Assistant; Admitting Provider Internal Medicine; Emergency Provider Emergency Medicine; PCP Family Medicine; Visit Provider Nurse Practitioner
DX: A04.71 Enterocolitis due to Clostridium difficile, recurrent (principal); N39.0 Urinary tract infection, site not specified; N17.9 Acute kidney failure, unspecified; B96.1 Klebsiella pneumoniae [K. pneumoniae] as the cause of diseases classified elsewhere; E86.0 Dehydration; R55 Syncope and collapse; S00.83XA Contusion of other part of head, initial encounter; E87.6 Hypokalemia; T78.40XA Allergy, unspecified, initial encounter; I10 Essential (primary) hypertension; K21.9 Gastro-esophageal reflux disease without esophagitis; K58.0 Irritable bowel syndrome with diarrhea; Z90.49 Acquired absence of other specified parts of digestive tract; Z98.42 Cataract extraction status, left eye; Z98.41 Cataract extraction status, right eye; Z90.710 Acquired absence of both cervix and uterus; W18.12XA Fall from or off toilet with subsequent striking against object, initial encounter
CPT/HCPCS: 12011; 36415; 70450; 70486; 71045; 72125; 74177; 76705; 80048; 80053; 80074; 80076; 80307; 81001; 82274; 83605; 83690; 83735; 84443; 84484; 85025; 85027; 85610; 85730; 87015; 87045; 87077; 87086; 87088; 87186; 87269; 87272; 87324; 87427; 89055; 90471; 90715; 93005; 96361; 96365; 96366; 96367; 96375; 96376; 99285; A9270; G0378; J0696; J1885; J2270; J2405; J7030; Q9967

== ENCOUNTER 2022-03-12 16:00 | Outpatient (CLI) | payer MEDICARE, SELFPAY ==
--- NOTE | ~2022-03-12 | DEXA_ITS ---
Bone Density Report Name: BERNIE KISER Age: 76 Sex: Female Ethnicity: White Date of : 1945 Indication: postmenopausal; screening for osteoporosis; height loss; hysterectomy; Referring Provider: AMANDA MARQUEZ Study: Bone densitometry was performed. Exam Date: March 12, 2022 Accession number: [id number] Bone Density: Region BMD T-score Z-score Classification AP Spine(L1-L4) 0.902 -1.3 1.3 Osteopenia Femoral Neck (Left) 0.638 -1.9 0.3 Osteopenia Total Hip (Left) 0.816 -1.0 0.9 Normal Femoral Neck (Right) 0.594 -2.3 -0.1 Osteopenia Total Hip (Right) 0.817 -1.0 0.9 Normal Total Hip Mean 0.816 -1.0 0.9 Normal World Health Organization criteria for BMD impression classify patients as: Normal (T-score at or above -1.0), Osteopenia (T-score between -1.0 and -2.5), or Osteoporosis (T-score at or below -2.5). 10-year Fracture Risk(1): Major Osteoporotic Fracture 16% Hip Fracture 4.8% Reported Risk Factors: [place] (), Neck BMD=0.594, BMI=28.7 (1) FRAX(R) Version 3.08. Fracture probability calculated for an untreated patient. Fracture probability may be lower if the patient has received treatment. Clinical Information Provided by Patient: Has the following medical conditions: Hysterectomy Patient maximum height was 63 Menopause Age: 37 Onset of menses at age 9 Number of children 2 Impression: The patient has low bone mass, based on the Right Femoral Neck T-score. The patient has an estimated ten-year risk of hip fracture of 4.8% and an estimated ten-year risk of major fracture of 16%, based on the WHO FRAX algorithm. Discussion: BONE DENSITY IS LOW AT ONE OR MORE SKELETAL SITES. THE PATIENT'S BMD AND CLINICAL RISK FACTORS CONTRIBUTE TO THIS PATIENT'S INCREASED RISK OF FRACTURE. This patient's lowest T-score is low at one or more skeletal sites. It meets the World Health Organization's (WHO) criteria for ?low bone mass? (T-score between -1.0 and -2.5). The patient's 10-year risk of hip fracture as calculated by FRAX exceeds the threshold where pharmacological therapy is recommended by the National Osteoporosis Foundation (NOF). However, all treatment decisions require clinical judgment and consideration of individual patient factors, including patient preferences, comorbidities, previous drug use, risk factors not captured in the FRAX model (e.g., frailty, falls, vitamin D deficiency, increased bone turnover, interval significant decline in bone density) and possible under or overestimation of fracture risk by FRAX. The patient should follow a healthful lifestyle (good nutrition with adequate calcium and vitamin D, and appropriate weight-bearing exercise). Follow-Up: Consider a repeat BMD and Vertebral Fracture Assessment (VFA) exam in 2 years or sooner if me
== END 2022-03-12 16:01 | disposition home or self-care (01) ==
LOC: ANHIMG 16:01
PROVIDERS: PCP Family Medicine; Visit Provider Physician Assistant
DX: Z78.0 Asymptomatic menopausal state (principal); M85.88 Other specified disorders of bone density and structure, other site; M85.852 Other specified disorders of bone density and structure, left thigh; M85.851 Other specified disorders of bone density and structure, right thigh
CPT/HCPCS: 77080

== ENCOUNTER 2024-05-04 15:50 | Outpatient (CLI) | payer MEDICARE, SELFPAY ==
--- NOTE | ~2024-05-04 | CT_ITS ---
EXAMINATION: CT abdomen pelvis w con DATE: 05/04/2024 16:43 INDICATION: Unspecified abdominal pain. TECHNIQUE: Computed tomography (CT) of the abdomen and pelvis was performed with 100 mL Omnipaque 350 intravenous contrast. Automated exposure control and iterative reconstruction technique were employe d. The dose-length product was 506.18 mGy-cm. COMPARISON: CT abdomen and pelvis 05/21/2021 FINDINGS: The visualized portions of the lung bases demonstrate mild atelectasis. No pleural effusion . The heart size is normal. There are coronary artery calcifications. No pericardial effusion. There is a small sliding hiatal hernia. There is a 2.3 cm cyst in the liver. The gallbladder is absent. The spleen, pancreas, adrenal glands, and kidneys are normal. There is diverticulosis of the colon witho ut evidence of diverticulitis. There is a diverticulum of the second portion of the duodenum. The jerri endix is normal. There is calcified atherosclerosis of the aorta and many of the other arteries. Ther e are no pathologically enlarged lymph nodes. There is no free intraperitoneal fluid. There is severe thoracic and lumbar spondylosis. IMPRESSION: 1. Small sliding hiatal hernia. Reviewed, dictated and finalized at location A.
[2024-05-04 16:29] LABS: Estimated Glomerular Filt Rate 43
[2024-05-04 17:24] LABS: Basophils Percent Auto 0.6 % (0.2-1.2); Eosinophils Absolute Auto 0.1 K/mm3 (0-0.3); Eosinophils Percent Auto 2.4 % (0-4.4); Hematocrit 35.4 % (37.0-47.0); Hemoglobin 11.5 g/dL (12.0-15.0); Immature Granulocyte Absolute 0.01 K/mm3 (0.00-0.031); Immature Granulocyte Percent A 0.2 % (0-0.5); Lymphocytes Absolute Auto 1.89 K/mm3 (0.9-3.2); Lymphocytes Percent Auto 37.6 % (18.3-44.2); Mean Corpuscular HGB Conc 32.5 g/dl (32-36); Mean Corpuscular Hemoglobin 30.7 pg (26-34); Mean Corpuscular Volume 94.7 fl (80-100); Mean Platelet Volume 10.1 fl (7.4-10.4); Monocytes Absolute Auto 0.7 K/mm3 (0.1-0.6); Monocytes Percent Auto 14.7 % (2.6-8.5); Neutrophils Absolute Auto 2.2 K/mm3 (1.3-6.7); Neutrophils Percent Auto 44.5 % (45.5-73.1); Platelet Count Result 226 k/mm3 (150-375); Red Blood Count 3.74 M/mm3 (4.2-5.4); Red Cell Distribution Width 12.6 % (11.5-14.5)
[2024-05-04 17:35] LABS: Alanine Aminotransferase 13 U/L (6-35); Albumin Level 3.5 g/dL (3.5-5.1); Alkaline Phosphatase 48 U/L (38-126); Amylase 57 U/L (30-110); Anion Gap 7 mmol/L (4-12); Aspartate Amino Transferase 24 U/L (14-36); Bilirubin,Total 0.4 mg/dL (0.2-1.3); Blood Urea Nitrogen 21 mg/dL (7-17); Calcium 8.9 mg/dL (8.4-10.2); Carbon Dioxide 28 mmol/L (22-30); Chloride 98 mmol/L (98-107); Estimated Glomerular Filt Rate 48; Glucose 91 mg/dL (65-110); Lipase 123 U/L (23-300); Potassium 3.7 mmol/L (3.4-5.0); Sodium 133 mmol/L (137-145)
== END 2024-05-04 15:51 | disposition home or self-care (01) ==
PROVIDERS: PCP Family Medicine; Visit Provider Nurse Practitioner Family
DX: R10.9 Unspecified abdominal pain (principal); K44.9 Diaphragmatic hernia without obstruction or gangrene
CPT/HCPCS: 36415; 74177; 80053; 82150; 83690; 85025; Q9967

== ENCOUNTER 2025-06-21 09:25 | Outpatient (CLI) | payer MEDICARE, SELFPAY ==
--- OUTSIDE RECORDS SUMMARY | 2025-06-21 10:29 | XMS_ITS | Clinical Summary ---
Author Organization [facility] Address [address] [place] [address] Care Team Providers Care Automobile Tester Name Role Phone Lauro Pacheco MD Primary Care Provider [phone] Source Comments [facility],non-owned Affiliates and Associated Physician Practices is amultiple site organization consisting of ambulatory clinics and hospital sitesin [place], [place], [place] and [place]. This disclosure is being madepursuant to the Care Everywhere program and may not contain all information available regarding this patient. Last updated 18.[facility] Allergies No known active allergies Medications * Be aware that medications may not be up to date on this document. Alwaysverify current medications with the patient. metoprolol tartrate IR (LOPRESSOR) 25 MG tablet Take 1 (one) tablet by mouth once daily Active atorvastatin (LIPITOR) 20 MG tablet Take 1 (one) tablet by mouth once daily 2 Active aspirin EC (ECOTRIN) 81 MG tablet Take 1 (one) tablet by mouth once daily Active Naproxen Sodium 220 MG Take by mouth once daily Active Multiple Vitamins-Minera ls (WOMENS MULTIVITAMIN) TABS Take 1 tablet by mouth once daily Active Probiotic Product (PROBIOTIC PEARLS WOMENS) CAPS Take 10 Billion Cells by mouth once daily Active Potassium 99 MG tablet Take 1 (one) tablet by mouth once daily Active vitamin D (D--JCARLOS) 10 MCG (400 UNITS)/ML solution Take 12.5 mL by mouth once daily Active biotin 5000 MCG sublingual tab Dissolve under the tongue once daily Active Menatetrenone (VITAMIN K2) 100 MCG TABS Take 1 capsule by mouth Active Turmeric 500 MG Take 1 capsule by mouth Active Misc Natural Products (GLUCOSAMINE CHOND CMP ADVANCED PO) Take 1,500 mg by mouth once daily Active calcium 200 MG tablet Take 3 (three) tablets by mouth once daily Active Loperamide (Imodium) 2 MG tablet Take 1 (one) tablet by mouth 4 times daily as needed for Diarrhea Over the counter medications. Active psyllium (Metamucil) 58.6 % powderIndicatio ns:diarrhea Take 1 (one) packet by mouth once daily as needed for Constipation Reasons: diarrhea 30 packet 2 3 Active Active Problems Problem Noted Date Diagnosed Date C. difficile diarrhea 12/30/2021 Social History Tobacco Use Types Packs/Day Years Used Date Smoking Tobacco: Never Smokeless Tobacco: Never Tobacco Cessation:Counseling Given: Not Answered Alcohol Use Standard Drinks/Week Comments Not Currently 1 (1 standard drink = 0.6 oz pur e alcohol) holiday Comments Unknown Sex and Gender Information Value Date Recorded Sex Assigned at Not on file Legal Sex Female 9:09 AM CDT Gender Identity Not on file Sexual Orientation Not on file Last Filed Vital Signs Vital Sign Reading Time Taken Comments Blood Pressure 138/51 07/07/2023 2:07 PM STENCIL MACHINE OPERATOR Pulse 66 07/07/2023 2:07 PM STENCIL MACHINE OPERATOR Temperature 36.2 C (97.2 F) 07/07/2023 2:07 PM STENCIL MACHINE OPERATOR Respiratory Rate 16 08/26/2022 11:54 AM STENCIL MACHINE OPERATOR Oxygen Saturation 98% 07/07/2023 2:07 PM STENCIL MACHINE OPERATOR Inhaled Oxygen Concentration - - Weight 71.5 kg (157 lb 9.6 oz) 07/07/2023 2:07 P M STENCIL MACHINE OPERATOR Height 157.5 cm (5' 2) 07/07/2023 2:07 PM STENCIL MACHINE OPERATOR Body Mass Index 28.83 07/07/2023 2:07 PM STENCIL MACHINE OPERATOR Plan of Treatment Health Maintenance Due Date Last Done Comments BONE DENSITY TESTING 1945 DTAP/TDAP/TD VACCINES (1 - Tdap) 1963 PNEUMOCOCCAL VACCINE 50+ (1 of 1 - PCV) 1994 ZOSTER VACCINE (1 of 2) 1994 Respiratory Syncytial Virus (RSV) Vaccine Pt: or over 60 yrs (1 - 1-dose 75+ series) 2019 DEPRESSION SCREENING 08/18/2024 MEDICARE AWV CALENDAR YEAR 2024 COVID-19 VACCINE ( season) 2025 07/05/2021, 10/28/2020, 09/29/2020 INFLUENZA VACCINE (#1) 2025 , 05/22/2020, 05/18/2019, Additional history exists HEPATITIS B VACCINE Aged Out No longe r eligible based on patient's age to complete this topic HIB VACCINE Aged Out No longer eligi ble based on patient's age to complete this topic HPV VACCINE Aged Out No longer eligi ble based on patient's age to complete this topic MENINGOCOCCAL (Group B) VACCINE SHARED DECISION-MAKING Aged Out No longer eligible based on patient's age to complete this topic MENINGOCOCCAL GROUPS A/C/Y/W VACCINE Aged Out No longer eligible based on patient's age to complete this topic Goals Goal Patient Goal Type Associated Problems Recent Progress Patient-Stated? Author Safety General On track( 023 12:02 PM STENCIL MACHINE OPERATOR) Catina Clemente RN Note: Expected end date: ONGOING Interventions: Keep personal items within easy reach Use some light at night in your room Keep walking paths clutter free and clear Medication Management General On track( 023 2:22 PM STENCIL MACHINE OPERATOR) Catina Clemente RN Note: Expected end date: ONGOING Interventions: Take all medications as prescribed Let your doctor know right away about any changes in your medications Make sure to request a refill of your medication at least one week prior to your last dose Insurance [facility] MANAGED MEDICARE ADV [facility] MANAGED MEDICARE [place]V [place] [id number] Care Teams Automobile Tester Relationship Specialty Start Date End Date Lauro Pacheco MD [address] [place] [phone] PCP - General 12/19/21
--- OUTSIDE RECORDS SUMMARY | 2025-06-21 10:29 | XMS_ITS | Clinical Summary ---
Author Organization [facility] Address [address] [place] [address] Care Team Providers Care Commercial Analyst Name Role Phone Lauro Pacheco MD Primary Care Provider [phone] Blayne Sosa MD Unavailable [phone] Allergies No known active allergies Medications aspirin 81 mg tablet take 1 tablet (81MG) by oral route every day 0 2 Active lactobacillus combination no.9 (ADULT 50+ PROBIOTIC) 4 billion cell capsule Take 1 capsule by mouth daily. Active potassium gluconate 595 mg (99 mg) tablet Take 1 tablet (595 mg total) by mouth daily Active methylsulfonylme buck 1,000 mg capsule Take 1 capsule by mouth daily Active calcium carbonate (Calcium 600) 1,500 mg (600 mg elemental) tablet Take 1 tablet (1,500 mg total) by mouth Active estradioL (ESTRACE) 0.01 % (0.1 mg/gram) vaginal cream APPLY 1 GRAM TO VUVLA DAILY AT BEDTIME 5 Active L. acidophilus/Bifi d. animalis 32 billion cell capsule Take 10 Billion Cells by mouth daily Active loperamide (IMODIUM A-D) 2 mg tablet Take 1 tablet (2 mg total) by mouth 4 (four) times a day as needed Active triamcinolone (KENALOG) 0.1 % cream APPLY TOPICALLY TWICE DAILY TO PERINEAL RASH 5 Active meloxicam (MOBIC) 15 mg tablet Take 1 tablet (15 mg total) by mouth daily 5 Active gabapentin (NEURONTIN) 300 mg capsuleIndicatio ns:photophobia, eye pain Take 1 capsule (300 mg total) by mouth every morning AND 2 capsules (600 mg total) nightly. 270 capsule 3 5 11/30/19 26 Active metoprolol XL (TOPROL-XL) 25 mg extended release tablet Take 1 tablet by mouth once daily 90 tablet 2 5 Active atorvastatin (LIPITOR) 20 mg tablet Take 1 tablet by mouth once daily 90 tablet 2 5 Active Active Problems Problem Noted Date Diagnosed Date Atypical chest pain 01/14/2023 C. difficile diarrhea 12/30/2021 LVH (left ventricular hypertrophy) 05/09/2017 Hyperlipidemia LDL goal <130 05/09/2017 Atrial paroxysmal tachycardia 06/07/2015 Overview (11/23/2016): Paroxysmal atrial tachycardia Syncope 08/19/2014 Overview (11/23/2016): Syncope Disorder of cervical spine 08/19/2014 Overview (11/23/2016): Neck tightness Cardiac arrhythmia 08/19/2014 Overview (11/23/2016): Arrhythmia Mitral valve prolapse 08/19/2014 Overview (11/23/2016): Mitral valve prolapse Palpitations 08/19/2014 Overview (11/23/2016): Palpitations Surgical History Surgery Date Site/Laterality Comments CATARACT EXTRACTION February and March 2018 CHOLECYSTECTOMY HYSTERECTOMY TUBAL LIGATION KNEE ARTHROSCOPY W/ LATERAL RELEASE left knee - 1988 Medical History Medical History Date Comments Hx Other Medical mitral valve pr olapse, sinusitis, GERD, status pos; Comments: MAF 08/19/2014 - GERD (gastroesophageal reflux disease) Arthritis History of cardiac radiofrequency ablation Family History Medical History Relation Name Comments Heart disease Father Sushant Parekh Heart failure Father Sushant Parekh Congestive heart failure; Cause of : Congestive heart failure Heart attack Mother Rebekah Parekh Myocardial infarction; Cause of : Myocardial infarction Arthritis Sister Travis Santos COPD Sister Travis Santos Relation Name Status Comments Father Sushant Parekh Mother Rebekah Parekh Sister Travis Santos Social History Tobacco Use Types Packs/Day Years Used Date Smoking Tobacco: Never Smokeless Tobacco: Never Tobacco Cessation:Counseling Given: Not Answered Alcohol Use Standard Drinks/Week Comments No 0 (1 standard drink = 0.6 oz pur e alcohol) AUDIT-C Answer Date Recorded Q1: How often do you have a drink containing alc ohol? Never 05/24/2024 Average Number of Drinks Not on file 024 Frequency of Binge Drinking Not on file 02/2024 Comments Unknown Sex and Gender Information Value Date Recorded Sex Assigned at Not on file Legal Sex Female 8:37 PM KEG FILLER Gender Identity Not on file Sexual Orientation Not on file Last Filed Vital Signs Vital Sign Reading Time Taken Comments Blood Pressure 138/64 01/17/2025 10:50 AM CDT Pulse 67 01/17/2025 10:50 AM CDT Temperature - - Respiratory Rate - - Oxygen Saturation 96% 01/17/2025 10:50 AM CDT Inhaled Oxygen Concentration - - Weight 68.5 kg (151 lb) 01/17/2025 10:50 AM CDT Height 160 cm (5' 3) 01/17/2025 10:50 AM CDT Body Mass Index 26.75 01/17/2025 10:50 AM CDT Plan of Treatment Health Maintenance Due Date Last Done Comments Depression Screening 1945 Fall Risk Assessment 1945 Osteoporosis Screening-Bone Density Scan 1945 DTaP/Tdap/Td Vaccine (1 - Tdap) 1955 Hepatitis B Screening 1962 Zoster Vaccine (1 of 2) 1994 Well Visit 65+ 2009 Influenza Vaccine (#1) 2025 9, 06/07/2015, 05/17/2014, Additional history exists Pneumococcal vaccine 65+ Completed 02/17/2020, 02/15 Insurance [facility] MEDICARE ADVANTAGE Advance Directives For more information, please contact: [phone] Documents on File Type Date Recorded Patient Secondary Set Up Man Expl anation Power of Asset Specialist 01/14/2023 8:52 AM Care Teams Commercial Analyst Relationship Specialty Start Date End Date Lauro Pacheco MD PCP - General Family Medicine 12/06/20 Blayne Sosa MD [address] [place] [address] Referring Physician Ophthalmology 01/20/24
--- OUTSIDE RECORDS SUMMARY | 2025-06-21 10:29 | XMS_ITS | Clinical Summary ---
Author Organization [facility] Address [address] [facility] [address] [place] [address] Phone Care Team Providers Care News Intern Name Role Phone Gurvinder Mason MD Primary Care Provider [phone] Allergies No known active allergies Medications Cinnamon 500 MG Capsule Take 1,000 mg by mouth. Active Methylsulfonylm ethane (MSM) 1000 MG Capsule Take 1 Cap by mouth. Active metoprolol Succinate (TOPROL-XL) 25 MG TABLET SR 24 HR Take 25 mg by mouth. 07/23/2019 Active omeprazole (PRILOSEC) 40 MG CAPSULE DELAYED RELEASE TAKE 1 CAPSULE BY MOUTH ONCE DAILY 03/03/2020 Active Potassium Gluconate 595 (99 K) MG Tablet Take 595 mg by mouth. Active Probiotic Product ([employer] ADULT 50+ PROBIOTIC) Capsule Take 1 Cap by mouth. Active trimethoprim (TRIMPEX) 100 MG Tablet 100 mg. 08/19/2014 Active Turmeric Curcumin 500 MG Capsule Take 1 Cap by mouth. Active atorvastatin (LIPITOR) 20 MG Tablet Take 20 mg by mouth. 07/23/2019 Active Cholecalciferol (VITAMIN D-3 PO) Take by mouth. Active BIOTIN FORTE PO Take by mouth. Active ciprofloxacin (CIPRO) 500 MG Tablet Pt takes Friday,, and Friday02/07/2020 Active Coenzyme Q10 10 MG Capsule Take 200 mg by mouth. Active ASPIRIN 81 PO 81 mg. 09/19/2011 Activ e Active Problems Problem Noted Date Diagnosed Date Hyperlipidemia LDL goal <130 05/09/2017 LVH (left ventricular hypertrophy) 05/09/2017 Atrial paroxysmal tachycardia 06/07/2015 Overview (03/16/2020): Paroxysmal atrial tachycardia Mitral valve prolapse 08/19/2014 Overview (03/16/2020): Mitral valve prolapse Palpitations 08/19/2014 Overview (03/16/2020): Palpitations Syncope 08/19/2014 Overview (03/16/2020): Syncope Immunizations Immunization Administration Dates Next Due Influenza, Seasonal, Injectable, Undefined 05/17,06/08/2013 Influenza, high-dose, trivalent, PF 05/18/2019,1 ,07/14/2012 Pneumococcal Vaccine - 13 Valent 02/25/2019 Pneumococcal Vaccine Adult - 23 Valent 0 Family History Medical History Relation Name Comments Congestive Heart Failure Father Heart Attack Mother Relation Name Status Comments Father Mother Social History Tobacco Use Types Packs/Day Years Used Date Smoking Tobacco: Never Smokeless Tobacco: Never Tobacco Cessation:Counseling Given: No Alcohol Use Standard Drinks/Week Comments Yes 0 (1 standard drink = 0.6 oz pur e alcohol) [facility] Answer Date Recorded Total Score - Questions 1-9 0 02/17 Comments No Sex and Gender Information Value Date Recorded Sex Assigned at Not on file Legal Sex Female 12:38 AM CDT Gender Identity Not on file Sexual Orientation Not on file Last Filed Vital Signs Vital Sign Reading Time Taken Comments Blood Pressure 118/70 03/16/2020 9:34 AM CDT Pulse 69 03/16/2020 9:34 AM CDT Temperature 37.1 C (98.7 F) 03/16/2020 9:34 AM CDT Respiratory Rate 16 03/16/2020 9:34 AM CDT Oxygen Saturation 98% 03/16/2020 9:34 AM CDT Inhaled Oxygen Concentration - - Weight 61.7 kg (136 lb) 03/16/2020 9:34 AM CDT Height - - Body Mass Index - - Plan of Treatment Health Maintenance Due Date Last Done Comments Hepatitis C Virus (HCV) Screening 1945 TdaP Immunization 1944 Cologuard 1989 Immunochemical Fecal Occult Blood 1989 Zoster Immunization (1 of 2) 1994 Respiratory Syncytial Virus (RSV) Immunization (Adult) (1 - 1-dose 75+ series) 2019 Medicare Initial AWV [id number] 08/18/2020 Influenza Immunization (#1) 2025 10/0 08/2018, 06/07/2015, 05/17/2014, Additional history exists SARS-COV-2 Immunization (2024- season) 2025 01/10/2022, 07/05/2021, 10/28/2020, Additional history exists Colonoscopy 04/06/2030 04/06/2020 Colorectal Cancer Screening 04/06/2030 Pneumococcal Immunization (50+ years) Completed 02/17/2020, 02/25/2019 Pneumococcal Immunization Combined Discontinued 02/17/2020, 02/25/2019 Hepatitis B Immunization Aged Out No longer eligible based on patient's age to complete this topic Human Papillomavirus (HPV) Immunization Aged Out No longer eligible based on patient's age to complete this topic Meningococcal Immunization (ACWY) Aged Out No longer eligible based on patient's age to complete this topic Rotavirus Immunization Aged Out No lo nger eligible based on patient's age to complete this topic Procedures Procedure Name Priority Date/Time Associated Diagnosis Comments COLONOSCOPY Routine 04/06/2020 from Last 3 Months or Most Recently Relevant to Health Maintenance Results * COLONOSCOPY (04/06/2020) Ranulfo Perez DO PROCEDURE/MINOR SURGICAL ORDERA BLES Final Result from Last 3 Months or Most Recently Relevant to Health Maintenance Insurance [facility]IC[facility] Care Teams News Intern Relationship Specialty Start Date End Date Gurvinder Mason MD [address] [place] [id number] PCP - General Family Medicine 03/03/20
[2025-06-21 13:10] LABS: Hematocrit 40.9 % (37.0-47.0); Hemoglobin 12.7 g/dL (12.0-15.0); Immature Granulocyte Percent A 0.5 % (0-0.5); Lymphocytes Absolute Auto 1.24 K/mm3 (0.9-3.2); Mean Corpuscular HGB Conc 31.1 g/dl (32-36); Mean Corpuscular Hemoglobin 30.2 pg (26-34); Mean Corpuscular Volume 97.4 fl (80-100); Nucleated Red Blood Cells Absolute Auto 0.000 K/mm3 (0.0-0.012); Nucleated Red Blood Cells Perc 0.0 % (0.0-0.2); Platelet Count Result 323 k/mm3 (150-375); Red Blood Count 4.20 M/mm3 (4.2-5.4); White Blood Count 6.4 K/mm3 (4.5-10.0)
[2025-06-21 13:15] LABS: Alanine Aminotransferase 13 U/L (6-35); Albumin Level 4.1 g/dL (3.5-5.1); Alkaline Phosphatase 71 U/L (38-126); Anion Gap 5 mmol/L (4-12); Aspartate Amino Transferase 39 U/L (14-36); Bilirubin,Total 0.5 mg/dL (0.2-1.3); Blood Urea Nitrogen 16 mg/dL (7-17); Calcium 9.8 mg/dL (8.4-10.2); Carbon Dioxide 28 mmol/L (22-30); Chloride 104 mmol/L (98-107); Cholesterol 138 mg/dL (0-200); Estimated Glomerular Filt Rate 59; Glucose 79 mg/dL (65-110); HDL Direct 51 mg/dL; Potassium 4.3 mmol/L (3.4-5.0); Sodium 137 mmol/L (137-145); Total Protein 7.4 g/dL (6.3-8.2); Triglycerides 157 mg/dL (<150)
[2025-06-21 13:48] LABS: Thyroid Stimulating Hormone 2.610 uIU/mL (0.465-4.680)
== END 2025-06-21 09:26 | disposition home or self-care (01) ==
LOC: ANHGOSHLAB 09:26
PROVIDERS: PCP Family Medicine; Visit Provider Nurse Practitioner Family
DX: E78.5 Hyperlipidemia, unspecified (principal); I10 Essential (primary) hypertension; K21.9 Gastro-esophageal reflux disease without esophagitis; R19.7 Diarrhea, unspecified
CPT/HCPCS: 36415; 80053; 80061; 84443; 85025

== ENCOUNTER 2025-06-21 09:40 | Outpatient (CLI) | payer MEDICARE, SELFPAY ==
--- NOTE | ~2025-06-21 | XR_ITS ---
EXAMINATION: XR shoulder RT min 2V, 06/21/2025 9:50 [facility] HISTORY: Radiculopathy, cervical region pain x 1 month, no inj, no velasco COMPARISON: No comparisons available. Findings: No acute fracture or malalignment. No significant degenerative changes. Soft tissues unremarkable. Impression: No acute fracture or malalignment. Reviewed, dictated and finalized at location P. E[facility] Impression: No acute fracture or malalignment.
--- NOTE | ~2025-06-21 | XR_ITS ---
[id number] Indication: Radiculopathy, cervical region, pain x 1 month Comparison: None Findings: The vertebral heights are intact. No fracture or subluxation. Moderate loss of disc height at C3-4, C4-5 C5-6. Soft tissues unremarkable Impression: No acute abnormality. Reviewed, dictated and finalized at location P. Y OUT CLERK Impression: No acute abnormality.
== END 2025-06-21 09:41 | disposition home or self-care (01) ==
LOC: GOSHIMG 09:42
PROVIDERS: PCP Family Medicine; Visit Provider Nurse Practitioner Family
DX: M54.12 Radiculopathy, cervical region (principal); M25.511 Pain in right shoulder
CPT/HCPCS: 72040; 73030